=== PATIENT | male | born 1945 | race Caucasian/White ===

== ENCOUNTER 2017-08-18 18:24 | Inpatient (IN) | payer MEDICARE ==
[2017-08-18 18:44] LABS: #Lymphocytes 1.1 thou/uL (1.20-3.40); #Monocytes 0.7 thou/uL (0.11-0.59); #Neutrophils 11.7 thou/uL (1.40-6.50); %Basophils 0.3 % (0.0-1.0); %Eosinophils 0.2 % (0.0-10.0); %Lymphocytes 8.1 % (21.0-51.0); %Monocytes 5.3 % (0.0-10.0); %Neutrophils 86.1 % (42.0-75.0); Hemoglobin 15.2 g/dL (14.0-18.0); Mean Corpuscular HGB CONC 32.6 g/dL (32.0-36.0); Mean Corpuscular Hemoglobin 31.8 pg (27.0-31.0); Mean Corpuscular Volume 97.5 fl (80.0-94.0); Mean Platelet Volume 8.4 fL (7.4-10.4); Platelet Count 194 thou/uL (130-400); Red Blood Cell (RBC) Count 4.79 mill/uL (4.70-6.10); White Blood Cell (WBC) Count 13.6 thou/uL (4.8-10.8)
[2017-08-18 19:09] LABS: ALT (SGPT) 168 U/L (8-55); AST (SGOT) 210 U/L (5-34); Albumin 4.8 g/dL (3.4-4.8); Alcohol 91 mg/dL (Less than 10); Alkaline Phosphatase 83 U/L (40-150); Anion Gap 30 mmol/L (10-20); BUN (Urea Nitrogen) 26 mg/dL (8.4-25.7); Bilirubin, Total 0.9 mg/dL (0.2-1.2); Calc. Creatinine Clearance 0 mL/min (70-130); Calcium 9.9 mg/dL (7.8-10.44); Carbon Dioxide 18 mmol/L (23-31); Chloride 98 mmol/L (98-107); Estimated GFR-MDRD 48; Glucose 145 mg/dL (83-110); Potassium 3.3 mmol/L (3.5-5.1); Protein, Total 8.8 g/dL (5.8-8.1); Sodium 143 mmol/L (136-145)
[2017-08-18 19:17] LABS: CKMB 80.7 ng/mL (0-6.6)
[2017-08-18] MEDS ORDERED: Lorazepam 2 MG/ML VIAL ONE ×3 (19:23→21:06)
[2017-08-18] MEDS ORDERED: Multivitamins, Adult 10 ML, Thiamine HCl 100 MG, Folic Acid 1 MG in Dextrose 5 %-0.45 %... IV SCH (19:30)
[2017-08-18 19:38] LABS: CK (CPK) 10045 U/L (30-200)
--- NOTE | 2017-08-18 19:40 | RAD ---
PORTABLE AP CHEST X-RAY 08/18/17 HISTORY: Dyspnea. COMPARISON: None available. FINDINGS: The cardiac silhouette is magnified by projection and patient rotation but does appear mildly enlarge d. The pulmonary vasculature is within normal limits. Thoracic aorta is ectatic. Lungs are clear. Deg enerative changes are seen in the spine. IMPRESSION: 1. No acute cardiopulmonary process. 2. Suggestion of mild cardiomegaly. POS: [facility]
[2017-08-18] MEDS ORDERED: Diazepam 10 MG/2 ML SYRINGE IVP SCH (20:00)
[2017-08-18] MEDS ORDERED: Sodium Bicarbonate 150 MEQ in Sodium Chloride 0.9% 1,000 ML IV SCH (21:30)
[2017-08-18] MEDS ORDERED: Metoprolol Tartrate 5 MG/5 ML VIAL ONE (22:27)
--- NOTE | 2017-08-18 22:34 | CT ---
NONCONTRAST CT HEAD 08/18/17 HISTORY: Patient constantly shaking. Injury after a fall. COMPARISON: None available. FINDINGS: There is decreased attenuation of the periventricular white matter which is nonspecific but likely re flective of chronic small vessel ischemic changes. There is no evidence of an acute cortical infarcti on, hemorrhage, mass effect, or midline shift. Diffuse cerebral volume loss is present. The ventricul ar system is normal in size, shape, and position for the degree of sulcal atrophy. There is prominenc e of the bifrontal anterior subdural spaces which is most likely attributable to volume loss. The visualized paranasal sinuses and mastoid air cells are clear. Calvarial structures are intact wit hout evidence of a calvarial fracture. There is subcutaneous emphysema anterior to each maxilla, but the gas densities appear to overlie tubular structures. This may represent gas within vascular struct ures as opposed to subcutaneous gas secondary to laceration. There is mild subcutaneous soft tissue s welling seen just anterior and lateral to the right zygomatic arch. IMPRESSION: 1. No acute intracranial abnormalities demonstrated. 2. Chronic small vessel ischemic change and cerebral volume loss. 3. Gas densities anterior to each maxillary antrum which have a tubular configuration and may r epresent gas within venous structures secondary to placement of peripheral intravenous catheter. 4. Mild subcutaneous soft tissue swelling anterolateral to the right zygomatic arch. POS: [facility]
--- NOTE | 2017-08-18 22:48 | CT ---
NONCONTRAST CT CERVICAL SPINE: 08/18/17 HISTORY: Constant shaking. Injury after fall. TECHNIQUE: Contiguous axial CT images are obtained through the cervical spine from the skull base to the T1-2 le tereso. Sagittal and coronal reformat images are provided. FINDINGS: There is exaggerated kyphosis of the cervical spine which may be related to positioning. Multilevel degenerative changes are seen in the cervical spine with narrowing of the intervertebral d isc spaces at all levels with osteophyte formation and facet degenerative changes seen at multiple le vels. There is fusion of the C6 and C7 vertebral bodies. There is also uncinate process hypertrophy at multiple levels. There are varying degrees of moderate and severe neural foraminal narrowing at multiple levels due to bony encroachment on the neural juan alberto nawaf. No fracture or subluxation is seen involving the cervical spine. The prevertebral soft tissues are wi thin normal limits. Vascular calcifications seen in the carotid arteries. IMPRESSION: Multilevel degenerative changes without evidence of an acute fracture or subluxation involving the ce rvical spine. POS: [facility]
[2017-08-18] MEDS ORDERED: Enoxaparin Sodium 30 MG/0.3 ML SYRINGE SC SCH (23:30)
[2017-08-18 23:41] LABS: Magnesium 1.9 mg/dL (1.6-2.6); Phosphorus 6.4 mg/dL (2.3-4.7)
[2017-08-19 00:08] LABS: Troponin I 0.071 ng/mL (< 0.028)
[2017-08-19] MEDS ORDERED: Diazepam 5 MG TAB PO PRN (00:23)
[2017-08-19 00:28] LABS: CKMB 293.9 ng/mL (0-6.6)
[2017-08-19 01:37] LABS: Amphetamine Not Detected (NotDetected); Barbiturates Screen Not Detected (NotDetected); Benzodiazepine Screen Detected (NotDetected); Cocaine Metabolite Screen Not Detected (NotDetected); Medtox Control Line Valid? VALID (VALID); Medtox Reader # READER 4; Methadone Not Detected (NotDetected); Methamphetamine Not Detected (NotDetected); Opiate Screen Not Detected (NotDetected); Oxycodone Screen Not Detected (NotDetected); Phencyclidine (PCP) Not Detected (NotDetected); THC/Cannabinoid Screen Not Detected (NotDetected); Tricyclic Screen Not Detected (NotDetected)
[2017-08-19 02:45] LABS: Lactic Acid 12.7 mmol/L (0.5-2.2)
[2017-08-19] MEDS: Sodium Chloride 0.9% 1,000 ML IV SCH ×7 (02:45→22:10)
[2017-08-19 02:55] LABS: #Lymphocytes 0.6 thou/uL (1.20-3.40); #Monocytes 0.8 thou/uL (0.11-0.59); #Neutrophils 7.9 thou/uL (1.40-6.50); %Eosinophils 0.2 % (0.0-10.0); %Lymphocytes 6.2 % (21.0-51.0); %Monocytes 8.3 % (0.0-10.0); %Neutrophils 85.3 % (42.0-75.0); Hemoglobin 15.5 g/dL (14.0-18.0); Mean Corpuscular HGB CONC 34.1 g/dL (32.0-36.0); Mean Corpuscular Hemoglobin 32.7 pg (27.0-31.0); Mean Corpuscular Volume 96.1 fl (80.0-94.0); Mean Platelet Volume 8.7 fL (7.4-10.4); Platelet Count 158 thou/uL (130-400); RBC Distribution Width 14.2 % (11.5-14.5); Red Blood Cell (RBC) Count 4.74 mill/uL (4.70-6.10); White Blood Cell (WBC) Count 9.3 thou/uL (4.8-10.8)
[2017-08-19 03:01] LABS: PTT 27.8 SEC (22.9-36.1); Prothrombin Time 12.8 SEC (12.0-14.7)
[2017-08-19 03:16] LABS: Troponin I 0.098 ng/mL (< 0.028)
[2017-08-19 03:18] LABS: ALT (SGPT) 279 U/L (8-55); AST (SGOT) 732 U/L (5-34); Albumin 3.5 g/dL (3.4-4.8); Alkaline Phosphatase 66 U/L (40-150); Anion Gap 15 mmol/L (10-20); BUN (Urea Nitrogen) 25 mg/dL (8.4-25.7); Bilirubin, Total 1.4 mg/dL (0.2-1.2); Calc. Creatinine Clearance 69 mL/min (70-130); Calcium 7.6 mg/dL (7.8-10.44); Carbon Dioxide 27 mmol/L (23-31); Chloride 104 mmol/L (98-107); Estimated GFR-MDRD 65; Glucose 202 mg/dL (83-110); Magnesium 1.9 mg/dL (1.6-2.6); Phosphorus 4.5 mg/dL (2.3-4.7); Potassium 3.6 mmol/L (3.5-5.1); Protein, Total 6.5 g/dL (5.8-8.1); Sodium 142 mmol/L (136-145)
[2017-08-19 03:55] LABS: HBCM Index 0.07 S/CO (0-0.79); HBSAg Index 0.15 S/CO (0-0.99); Hep B Surf Ag Non-Reactive S/CO (NonReactive); Hep C IgG Ab Non-Reactive (NonReactive); Hep C Index 0.14 S/CO (0-0.79); Hepatitis B Core IGM Abs Non-Reactive (NonReactive)
[2017-08-19 04:20] LABS: CKMB 598.5 ng/mL (0-6.6)
[2017-08-19 05:00] LABS: Clarity CLOUDY (Clear); Protein, Urine (Dipstick) 300 mg/dL (Neg-Trace); Specific Gravity, Urine 1.021 (1.002-1.036)
[2017-08-19 05:04] LABS: Bacteria/HPF None Seen HPF (None Seen); Hyaline Casts/LPF 0-3 HYALINE CAST LPF (0-3 Hyaline); Squamous Epithelial None Seen HPF (0-3); WBC/HPF None Seen HPF (0-3)
[2017-08-19 05:16] LABS: Bilirubin Unable to Interpret (Negative); Blood, Urine Unable to Interpret (Negative); Glucose, Urine (Dipstick) Unable to Interpret mg/dL (Negative); Leukocyte Unable to Interpret (Negative); Nitrite Unable to Interpret (Negative); Urobilinogen UNABLE TO INTERPRET mg/dL (0.2-1.0)
[2017-08-19 05:37] LABS: Syphilis Antibody Nonreactive (Nonreactive); Syphilis Antibody Index 0.03 S/CO (<1.00 Non-Reactive)
[2017-08-19 05:57] LABS: Lactic Acid 2.7 mmol/L (0.5-2.2)
--- NOTE | 2017-08-19 06:49 | PDOC.EVN ---
Event Note - Event Note Event Note: Attending H&P. Late entry. I personally evaluated the patient and discussed the management with Dr. Dominguez in the ER at time of admission on 08/18. I have reviewed the written H&P and it is repeated by me. I agree with the History, Examination, Assessment and Plan documented above with any addition or exceptions noted below. We will admit for treatment of DT with Ativan. He was appropriately sedated at time of admission. He has rhabdomyolysis and will recieve IV fluid resuscitation. We have concern for right calf compartment syndrome, but distal pulses are intact. Will have Ortho consult today. He is being evaluated for A flutter as well. Electrolyte replacement as needed.
--- NOTE | 2017-08-19 08:49 | ULT ---
ULTRASOUND ABDOMEN: Date: 08/19/17 HISTORY: Concern for liver cirrhosis and ascites. FINDINGS: The liver demonstrates increased echogenicity with concern for fatty infiltration without focal mass or intrahepatic ductal dilatation. The liver is enlarged measuring 21.1 cm. The spleen measures 7.8 c m in length and is unremarkable. No gallstones, gallbladder wall thickening, or pericholecystic fluid is seen. The common duct measures 5.0 mm in diameter. There is a 1.9 cm cyst in the inferior pole of the right kidney and a 1.1 cm cyst in the left mid kidney. No hydronephrosis is seen. The visualized portions of the pancreas, aorta, and IVC are unremarkable. No free fluid is seen. The pancreatic lyle t measures about 2.0 mm in diameter. IMPRESSION: 1. Fatty infiltration of the liver with hepatomegaly. 2. No evidence of cholelithiasis. 3. Bilateral renal cysts. POS: [facility]
[2017-08-19] MEDS ORDERED: Prevnar 13-Val Conj/PF 0.5 ML SYRINGE IM ONE (09:00)
[2017-08-19] MEDS ORDERED: Enoxaparin Sodium 30 MG/0.3 ML SYRINGE SC SCH (09:00)
[2017-08-19] MEDS ORDERED: FLU VACC TS2017-18 (>65YR) 0.5 ML SYRINGE IM ONE (09:00)
[2017-08-19] MEDS: Multivitamin W/ Minerals 1 TAB PO SCH (09:14)
[2017-08-19] MEDS: Lorazepam 2 MG/ML VIAL SLOW IVP PRN ×3 (09:14→23:45)
[2017-08-19] MEDS: Magnesium Oxide 400 MG TAB PO SCH (09:15)
[2017-08-19] MEDS: Enoxaparin Sodium 30 MG/0.3 ML SYRINGE SC SCH (09:15)
[2017-08-19] MEDS: Folic Acid 1 MG TAB PO SCH (09:15)
--- NOTE | 2017-08-19 09:41 | PDOC.FM ---
- Subjective Subjective: Patient seems to be improved compared to report from initial admission. Still poor historian. Oriented to location, but not time, situation, or president ( Chandra). Denies any CP, SOB, N/V. - Objective MAR Reviewed: Yes Vital Signs & Weight: Vital Signs (12 hours) Temp Pulse Resp Pulse Ox 08/19/17 08:00 98.9 F 121 H 23 H 08/19/17 06:00 98.4 F 08/19/17 04:00 100 08/19/17 03:38 100 08/19/17 03:00 99 F 08/19/17 00:30 97.9 F 114 H 20 98 08/19/17 00:00 97.9 F Most Recent Monitor Data Heart Rate from ECG 108 NIBP 154/107 NIBP BP-Mean 117 Respiration from ECG 22 SpO2 97 I&O: 08/18/17 08/19/17 08/20/17 06:59 06:59 06:59 Intake Total 2850 500 Output Total 895 105 Balance 1954 395 Result Diagrams: 08/19/17 02:43 08/19/17 02:43 <Harrison Hawkins - Last Filed: 08/19/17 09:38> - Objective Vital Signs & Weight: Vital Signs (12 hours) Temp Pulse Resp 08/19/17 15:00 98.4 F 08/19/17 11:00 98.9 F 08/19/17 10:38 121 H 08/19/17 08:00 98.9 F 121 H 23 H Weight Admit Weight 83.007 kg Weight 83.007 kg Most Recent Monitor Data Heart Rate from ECG 100 NIBP 156/100 NIBP BP-Mean 108 Respiration from ECG 28 SpO2 95 I&O: 08/18/17 08/19/17 08/20/17 06:59 06:59 06:59 Intake Total 2850 3757 Output Total 895 600 Balance 1954 3157 Result Diagrams: 08/19/17 02:43 08/19/17 02:43 <Laura Yoo - Last Filed: 08/19/17 18:30> Phys Exam - Physical Examination Constitutional: NAD diffuse tremors HEENT: PERRLA, moist MMs Neck: full ROM Respiratory: no wheezing, clear to auscultation bilateral Cardiovascular: RRR, no significant murmur full, tight abd; no pain on palpation of RUQ Musculoskeletal: pulses present Neurological: normal sensation, moves all 4 limbs Deviation from normal: oriented x2 <Harrison Hawkins M - Last Filed: 08/19/17 09:38> Dx/Plan (1) Alcohol withdrawal Code(s): F10.239 - ALCOHOL DEPENDENCE WITH WITHDRAWAL, UNSPECIFIED Status: Acute Plan: ASE protocol librium and ativan(prn) continue to monitor (2) Rhabdomyolysis Code(s): M62.82 - RHABDOMYOLYSIS Status: Acute Plan: IVF @ 225, continue to monitor CK likely cause of THOR (3) Atrial fibrillation with RVR Code(s): I48.91 - UNSPECIFIED ATRIAL FIBRILLATION Status: Acute Plan: suspected, though repeat EKG was less convincing CKMB critically elevated, continue to monitor trop also indet, continue to trend ECHO consider Cards rec (4) Hypokalemia Code(s): E87.6 - HYPOKALEMIA Status: Acute Plan: improved this AM watch closely, likely recheck this afternoon (5) THOR (acute kidney injury) Code(s): N17.9 - ACUTE KIDNEY FAILURE, UNSPECIFIED Status: Acute Plan: fluids likely 2/2 to rhabdo continue to monitor (6) Elevated LFTs Code(s): R79.89 - OTHER SPECIFIED ABNORMAL FINDINGS OF BLOOD CHEMISTRY Status : Acute Plan: RUQ US unremarkable likely 2/2 to EtOH abuse as the pattern is consistent with labs hepatitis panel negative <Harrison Hawkins M - Last Filed: 08/19/17 09:38> Attending Addendum - Attending Addendum I personally evaluated the patient and discussed the management with Dr. Hawkins I agree with the History, Examination, Assessment and Plan documented above with any addition or exceptions noted below. 72 yo male with hx of alcohol abuse admitted for alcohol withdrawal with DTs. HD#1 VS reviewed. Exam unchanged. Still not oriented x3. Labs reviewed. DT/EtOH withdrawal: ASE. Benzo scheduled and prn. EtOH 91. Counseling. Treat co- morbid conditions as needed -- MDD, WILL, etc. Rhabdo: Bolus IVFs as needed. Otherwise continue rate 2x to 3x maintenance. Monitor renal function closely. Trend CK. LTFs and CKMB likely elevated due to same. Continue to trend. Transamnititis: Trend. Hep panel negative. Fatty liver dz on sono with hepatomegaly. Possibly worsened due to EtOH and rhabdo. Tachycardia: Continue cardiac monitoring. Trop indeterminate. No other EKG changes. pEFHF: Elevated BNP with diastolic dysfunction on ECHO. Possible new dx. Will discuss with cards while inpatient. Continue current care. Camryn <Laura Yoo - Last Filed: 08/19/17 18:30>
[2017-08-19 10:11] LABS: Troponin I 0.093 ng/mL (< 0.028)
[2017-08-19] MEDS ORDERED: Labetalol HCl 100 MG/20 ML VIAL SLOW IVP PRN ×2 (10:18→12:01)
--- NOTE | 2017-08-19 10:23 | HP-2 ---
CODE STATUS: FULL. PRIMARY CARE PHYSICIAN: [facility]. ATTENDING DOCTOR: Eric Simpson M.D. RESIDENT DOCTOR: Clarissa Dominguez D.O. CHIEF COMPLAINT: Found down. HISTORY OF PRESENT ILLNESS: This is a 72-year-old male with a known alcohol abuse history, found down by neighbors this afternoon. EMS was called. The patient was noted to be altered and with bruises on the right side of his face. The patient was down for an unknown period of time and his last drink was reportedly 1-2 days ago. The patient was given Lopressor 5 mg IVP in the emergency department for atrial fibrillation/atrial flutter with rapid ventricular rate. He was additionally given sodium bicarbonate 250 mL per hour as well as Ativan 2 mg x3 and Valium 5 mg. He was fluid resuscitated with 3 liters of normal saline and started on a banana bag. PAST MEDICAL HISTORY: Alcohol abuse. No other history was able to be obtained at this time and there are no past records to help elicit a more thorough history. PAST SURGICAL HISTORY: Unknown. ALLERGIES: Unable to confirm. MEDICATIONS: Unknown. FAMILY HISTORY: Noncontributory. SOCIAL HISTORY: The patient is a known alcoholic per neighbors. He drinks about 1 drink per day. Tobacco and drug use, unknown at this time. REVIEW OF SYSTEMS: Unable to obtain due to patient's mental status. PHYSICAL EXAMINATION: VITAL SIGNS: Blood pressure 165/132, pulse 111, respiratory rate 28, T-max 98, pulse ox 96% on room air, current weight 83 kilograms. GENERAL: The patient was alert and only oriented to person. He appeared to be well-developed and well-nourished. He was tremulous on exam. He was able to follow some commands, but could not answer questions appropriately. EYES: Sluggish and pinpoint. Conjunctivae within normal limits. ENT: Nasal mucosa and oropharynx within normal limits. NECK: Supple. No lymphadenopathy. CARDIOVASCULAR: The patient was tachycardic and no murmurs. Radial and pedal pulses are 2+. RESPIRATORY: Normal effort, no retractions. LUNGS: Clear to auscultation bilaterally. SKIN: Warm and dry. There is no cyanosis, but there is ecchymosis to the right side of the face. ABDOMEN: Soft but protuberant, not appear to be any tenderness to palpation. Bowel sounds are positive in all 4 quadrants. There are no masses or distention. EXTREMITIES: No clubbing or cyanosis. There was pitting edema to the bilateral lower extremities, both of which did feel very taut and constricted. MUSCULOSKELETAL: Structure within normal limits. NEUROLOGIC: No focal deficits evident, his GCS was 14. It was difficult to assess neurological status secondary to mental state. LABORATORY DATA: 1. CBC reveals white blood cell count 13.6, hemoglobin 13.2, hematocrit 46.6, platelets 194. 2. CMP reveals sodium 143, potassium 3.3, chloride 98, bicarbonate 18, BUN 26, creatinine 1.43, glucose 145, calcium 9.9, total protein 8.8, albumin 4.0, AST 210, ALT 168, alkaline phosphatase 83, total bilirubin 0.9. 3. CK 10,045. 4. CK-MB 80.7 up to 293.9, troponin 0.07-0.071. 5. Phosphorus 6.4. 6. Magnesium 1.9. 7. Alcohol level 91. 8. UDS negative except for benzodiazepines, which were given in the ED. 9. EKG showed atrial fibrillation versus atrial flutter with rapid ventricular rate. 10. Chest x-ray mild cardiomegaly. Imaging, brain CT, no acute intracranial abnormalities. 11. Cervical spine CT: No acute findings. ASSESSMENT AND PLAN: This 72-year-old male with past medical history of alcohol abuse that presented after being found down by his neighbors. 1. Delirium tremens, alcohol withdrawal. The patient was admitted to CCU. He was given 6 mg of Ativan and 5 mg of Valium in the emergency department and appears to be lightly sedated at this time. GCS of 14. No agitation on exam, patient is alert and oriented to person and following some commands. Last drink was presumably 1-2 days ago. ASE protocol was initiated using Ativan 2 mg q.4 h. p.r.n. for ASE score greater than 10 on day 1 and Ativan 1 mg q.4 h. p.r.n. for ASE greater than 10 on day 2. Ativan was opted for due to suspicion for liver disease. Ammonia level was within normal limits. Cardiac enzymes were elevated; however, it is expected that cardiac indices would be elevated with delirium tremens. Magnesium was within normal limits and phosphorus was elevated at 6.5, likely secondary to rhabdomyolysis. Potassium was 3.3. We will continue to monitor and replace as necessary. CT brain was negative. Flores is in place. 2. Possible atrial fibrillation/flutter with rapid ventricular response on EKG. The patient is tachycardic, likely secondary to delirium tremens. Cardiac enzymes elevated, but consistent with delirium tremens. We will continue to trend cardiac enzymes and repeat EKG. Repeat EKG showed sinus tachycardia. 4. Rhabdomyolysis. CK was found to be 10,000. The patient was found down for unknown amount of time. We will do aggressive fluid hydration and put patient on normal saline at 225 mL per hour. We will continue to trend CK until there is an obvious downtrend. 5. Acute kidney injury from dehydration. Patient was fluid resuscitated. We will continue to monitor with BMPs. 6. Elevated liver enzymes. There is concern for hepatic disease. This patient is a chronic alcoholic. There is also concern for ascites. Hepatitis panels are pending at this time and the abdominal ultrasound is pending. 7. Hypokalemia. We will consider replenishing potassium, but will monitor accordingly for elevation in potassium level secondary to rhabdomyolysis. 8. High risk behavior, RPR and HIV were obtained. 9. Anion gap metabolic acidosis. This is likely secondary to alcohol intoxication versus dehydration. The patient is being adequately fluid resuscitated and we will continue to monitor for closure of gap and rise in bicarbonate. DISPOSITION AND LENGTH OF HOSPITAL STAY: 3 days. Symptomatic medication will be provided. History of physical exam as well as management discussed with Dr. Eric Simpson. [facility]
--- NOTE | 2017-08-19 11:08 | CON ---
DATE OF CONSULTATION: 08/19/2017 He is from the [facility]. He comes to the hospital for alcohol withdrawal. He said he is trying to cut back on drinking. He is fairly tremulous, shaking. He has had multiple falls, in fact, he h as got a big bruise on his right orbital area. He has got a daughter apparently living close by. He has one daughter in [place] whom I spoke to personally, unable to give any additional information at this time except he has had some chronic iss ues to speak of. He is drinking whiskey, several at a time. He was transferred to the ICU for withdrawal, confusion, tremors. At this stage we are unable to get additional information. He has been placed on a banana bag. He got the flu shot. He is on Lovenox, Ativan p.r.n., thiamine, IV fluids. His daughter from [place] tells me that somewhere down the line he has had a history of some cardiac issues, possibl y seen a travel physical therapist, though we do not have any records at this stage here. It is unclear what medicine he is taking, but it appears to be atorvastatin. Obviously will get more history when the patient is more appropriate. He is clearly . PAST SURGICAL HISTORY: At this stage unobtainable. SOCIAL HISTORY: As noted, alcohol abuse. Unclear about his smoking history, but he denies any. FAMILY HISTORY: Otherwise unremarkable. 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 REVIEW OF SYSTEMS: Negative. PHYSICAL EXAMINATION: GENERAL: He is tremulous. VITAL SIGNS: Pulse 112, respiratory rate 26, O2 sat 100%, temperature 98, blood pressure 120/80. NEURO: Awake, responsive. CHEST: Chest revealed decreased breath sounds, no wheezing. CARDIAC: Sinus tach. ABDOMEN: Soft, no masses. LABORATORY: His electrolytes are normal. Lactic acid was 12, now it is 2.7. AST is 732, ALT is 279 . CK was elevated at 598. Urine is unremarkable. He had benzos in his urine. Ultrasound of the abdomen was ordered. Renal function normal. Chest x-ray on admission was unremarkable. May be some bibasilar atelectatic changes. He had a CT b rain that was unremarkable. No bleed was seen. Cervical spine CT was done which showed degenerative changes without any acute fracture seen. IMPRESSION: 1. Alcoholic withdrawal, delirium. 2. Abnormal liver function tests. 3. Alcoholic hepatitis. 4. Sinus tach. 5. History by daughter that he had some cardiac issues in the past, but it is unclear who he has see n. There are no records from this hospitalization. PLAN: I agree with present treatment, banana bag, IV fluids, supportive care. Ativan as needed. I will follow while in the ICU. He obviously needs senior care counseling. I reviewed all x-rays and x-ray reports. Forty-five minute critical care time.
[2017-08-19 11:22] LABS: CKMB Greater than 300.0 ng/mL (0-6.6)
[2017-08-19] MEDS ORDERED: Sodium Chloride 0.9% 1,000 ML IV SCH (18:30)
[2017-08-20] MEDS ORDERED: Lorazepam 2 MG/ML VIAL SLOW IVP PRN (00:01)
[2017-08-20] MEDS: Sodium Chloride 0.9% 1,000 ML IV SCH ×5 (02:05→14:43)
[2017-08-20] MEDS ORDERED: Diazepam 5 MG TAB PO PRN (04:00)
[2017-08-20 06:23] LABS: Lactic Acid 2.6 mmol/L (0.5-2.2)
[2017-08-20 06:45] LABS: Anion Gap 16 mmol/L (10-20); BUN (Urea Nitrogen) 18 mg/dL (8.4-25.7); Calc. Creatinine Clearance 95 mL/min (70-130); Calcium 6.7 mg/dL (7.8-10.44); Carbon Dioxide 20 mmol/L (23-31); Chloride 108 mmol/L (98-107); Estimated GFR-MDRD Greater than 90; Glucose 94 mg/dL (83-110); Potassium 4.2 mmol/L (3.5-5.1); Sodium 140 mmol/L (136-145)
[2017-08-20 06:51] LABS: HIV (1/2) Antibody/Antigen Non-Reactive (NonReactive); HIV 1/2 INDEX 0.23 S/CO (<1.00)
[2017-08-20 07:26] LABS: CK (CPK) Greater than 40000 U/L (30-200)
--- NOTE | 2017-08-20 08:20 | PRG ---
DATE OF SERVICE: 08/20/2017 This morning he is awake, alert, responsive, still tremulous. PHYSICAL EXAMINATION: VITAL SIGNS: Blood pressure 150/91, pulse 119, respirations 18. I's and O's are 860 in, 1730 out. He denies any pain. CK is 40,000. Electrolytes are normal. CHEST: Chest revealed decreased breath sounds, no wheezing. CARDIAC: Normal S1-S2. No gallops. ABDOMEN: Soft. No masses. IMPRESSION: 1. Alcohol withdrawal. 2. Elevated CK probably element of the rhabdo, though there is not much blood in his urine. PLAN: Continue hydration. I will try and decrease IV to no more than an 100 an hour. Continue observation in the ICU. Nutrition and PT. I will follow.
--- NOTE | 2017-08-20 08:30 | PDOC.FM ---
- Subjective Subjective: Patient reports he mostly did well overnight, did not sleep as well as usual. Still shaking, though improved compared to yesterday. Denies CP, SOB, N/V. Had large BM this morning per nursing staff. - Objective MAR Reviewed: Yes Vital Signs & Weight: Vital Signs (12 hours) Temp Pulse Ox 08/20/17 04:42 98 08/20/17 04:00 97.9 F 08/20/17 00:00 98 F Weight Admit Weight 83.007 kg Weight 83.007 kg Most Recent Monitor Data Heart Rate from ECG 105 NIBP 153/91 NIBP BP-Mean 117 Respiration from ECG 29 SpO2 98 I&O: 08/19/17 08/20/17 08/21/17 06:59 06:59 06:59 Intake Total 2850 8608 Output Total 895 1730 Balance 1955 3937 Result Diagrams: 08/19/17 02:43 08/20/17 04:26 <Harrison Hawkins - Last Filed: 08/20/17 08:29> - Objective Vital Signs & Weight: Vital Signs (12 hours) Temp Pulse Resp Pulse Ox 08/22/17 08:00 99.0 F 100 28 H 93 L 08/22/17 04:00 98.1 F 08/22/17 00:00 98.8 F Weight Admit Weight 83.007 kg Weight 83.007 kg Most Recent Monitor Data Heart Rate from ECG 99 NIBP 143/83 NIBP BP-Mean 113 Respiration from ECG 38 SpO2 92 I&O: 08/21/17 08/22/17 08/23/17 06:59 06:59 06:59 Intake Total 6427 6103 500 Output Total 5031 4030 250 Balance 1396 2073 250 Result Diagrams: 08/19/17 02:43 08/22/17 03:35 <Laura Yoo - Last Filed: 08/22/17 09:38> Phys Exam - Physical Examination Constitutional: NAD HEENT: moist MMs Neck: supple, full ROM Respiratory: no wheezing, clear to auscultation bilateral Cardiovascular: RRR, no significant murmur mildly taut, distended; no guarding Musculoskeletal: pulses present, edema present 1+ pitting edema b/l to knees Neurological: normal sensation, moves all 4 limbs Deviation from normal: oriented to person and place <Rister,Harrison M - Last Filed: 08/20/17 08:29> Dx/Plan (1) Alcohol withdrawal Code(s): F10.239 - ALCOHOL DEPENDENCE WITH WITHDRAWAL, UNSPECIFIED Status: Acute Plan: ASE protocol librium scheduled and ativan(prn) received ativan around midnight for ASE >10 some ASE scores have been as low as 4, will continue to monitor and wean down on dose as needed (2) Rhabdomyolysis Code(s): M62.82 - RHABDOMYOLYSIS Status: Acute Plan: recheck yesterday of CK was >40,000. Bolus given and IVF increased to 250ml/hr. This morning it was again >40,000. THOR has resolved (3) Atrial fibrillation with RVR Code(s): I48.91 - UNSPECIFIED ATRIAL FIBRILLATION Status: Acute Plan: suspected, though repeat EKG showed normal sinus CKMB critically elevated, continue to monitor trop also indet, continue to trend ECHO 55% EF, findings suggestive of diastolic but limited exam due to patient intolerance (4) Hypokalemia Code(s): E87.6 - HYPOKALEMIA Status: Acute Plan: stable today (5) THOR (acute kidney injury) Code(s): N17.9 - ACUTE KIDNEY FAILURE, UNSPECIFIED Status: Acute Plan: resolved (6) Elevated LFTs Code(s): R79.89 - OTHER SPECIFIED ABNORMAL FINDINGS OF BLOOD CHEMISTRY Status : Acute Plan: RUQ US unremarkable likely 2/2 to EtOH abuse as the pattern is consistent with labs hepatitis panel negative <Harrison Hawkins M - Last Filed: 08/20/17 08:29> Attending Addendum - Attending Addendum I personally evaluated the patient and discussed the management with Dr. Hawkins I agree with the History, Examination, Assessment and Plan documented above with any addition or exceptions noted below. 72 yo male with hx of alcohol abuse admitted for alcohol withdrawal with DTs. HD#2 VS reviewed. Exam unchanged. Still not oriented x3. Upon awakening on exam uncontrolled tremors. Will hold on Ativan prince today. Labs reviewed. DT/EtOH withdrawal: ASE. Benzo scheduled and prn. EtOH 91. Counseling. Treat co- morbid conditions as needed -- MDD, WILL, etc. Rhabdo: Bolus IVFs as needed. Otherwise continue rate 1x maintenance. Monitor renal function closely. Trend CK daily until downtrending. LTFs and CKMB likely elevated due to same. Continue to trend. Transamnititis: Trend. Hep panel negative. Fatty liver dz on sono with hepatomegaly. Possibly worsened due to EtOH and rhabdo. Tachycardia: Continue cardiac monitoring. Trop indeterminate. No other EKG changes. Restart beta rupal HTN: Restart beta rupal pEFHF: Elevated BNP with diastolic dysfunction on ECHO. Possible new dx. Will discuss with cards while inpatient. Continue current care. Camryn <Laura Yoo - Last Filed: 08/22/17 09:38>
[2017-08-20] MEDS: Multivitamin W/ Minerals 1 TAB PO SCH (09:30)
[2017-08-20] MEDS: Folic Acid 1 MG TAB PO SCH (09:30)
[2017-08-20] MEDS: Enoxaparin Sodium 30 MG/0.3 ML SYRINGE SC SCH (09:30)
[2017-08-20] MEDS: Magnesium Oxide 400 MG TAB PO SCH (09:30)
[2017-08-20] MEDS: Calcium Carbonate 500 MG ChewTAB PO SCH (11:49)
[2017-08-20] MEDS: Lorazepam 2 MG/ML VIAL SLOW IVP PRN (21:34)
[2017-08-21] MEDS: Sodium Chloride 0.9% 1,000 ML IV SCH ×5 (00:20→23:11)
[2017-08-21] MEDS: Lorazepam 2 MG/ML VIAL SLOW IVP PRN ×3 (01:42→22:01)
--- NOTE | 2017-08-21 07:06 | PDOC.FM ---
Addendum entered and electronically signed by Juana Valdez DO 07:09: Assessment/Plan: 1) Delerium Trem - ASE last night was 11, 12. Given 2mg Ativan total throughout the night. Librium was started yesterday. On thiamine and folate. Consider transfer to telemetry. 2) Rhabdomyolysis - CK still > 40,000. Continue fluids at 200. Encourage patient to drink PO. 3) Severe Alcohol abuse now with alcohol withdrawl - Counselled on cessation. 4) S/p fall - Head CT was negative. Likely 2/2 alcohol. No focal neurological deficits. 5) Elevated CK-MB 2/2 Rhabdomyolysis. Continue Fluids. 6) Sinus Tachycardia 2/2 #1. LVEF 60-65%. Original Note: - Subjective Subjective: Pt just waking up this morning. He doesn't really remember exactly what happened and why he is here. He was asking for alcoholic beverages throughout the entire night to the nurse. + BM. I/O: about 4L out in 24hours. Denies any pain or concerns at this time. - Objective MAR Reviewed: Yes Vital Signs & Weight: Vital Signs (12 hours) Temp Pulse Resp Pulse Ox 08/21/17 04:00 97.9 F 08/21/17 00:00 98.5 F 08/20/17 20:00 98.7 F 103 H 20 95 08/20/17 19:38 99 Weight Admit Weight 83.007 kg Weight 83.007 kg Most Recent Monitor Data Heart Rate from ECG 103 NIBP 160/90 NIBP BP-Mean 129 Respiration from ECG 19 SpO2 97 I&O: 08/20/17 08/21/17 08/22/17 06:59 06:59 06:59 Intake Total 8608 6427 Output Total 5296 5031 Balance 6878 1396 Result Diagrams: 08/19/17 02:43 08/20/17 04:26 <Juana Valdez - Last Filed: 08/21/17 07:04> - Objective Vital Signs & Weight: Vital Signs (12 hours) Temp Pulse Resp Pulse Ox 08/21/17 08:00 99.0 F 110 H 25 H 96 08/21/17 04:00 97.9 F 08/21/17 00:00 98.5 F Weight Admit Weight 183 lb Weight 183 lb Most Recent Monitor Data Heart Rate from ECG 90 NIBP 138/90 NIBP BP-Mean 99 Respiration from ECG 22 SpO2 95 I&O: 08/20/17 08/21/17 08/22/17 06:59 06:59 06:59 Intake Total 8608 6427 220 Output Total 1730 5031 990 Balance 6878 1396 -770 Result Diagrams: 08/19/17 02:43 08/21/17 07:02 <Duane Beckford - Last Filed: 08/21/17 10:51> Phys Exam - Physical Examination Constitutional: NAD R bruise maxillary. Neck: no nodes, no JVD Respiratory: no wheezing, no rales, no rhonchi, clear to auscultation bilateral Cardiovascular: no significant murmur Regular Tachycardic. Gastrointestinal: soft, non-tender, no distention Musculoskeletal: pulses present (+2) +2pitting edema LE bilaterally Neurological: moves all 4 limbs CNII-XII grossly intact. Deviation from normal: Oriented to self. Deviation from normal: + RLE bullae <Juana Valdez - Last Filed: 08/21/17 07:04> Attending Addendum - Attending Addendum I personally evaluated the patient and discussed the management with [ Lance] I agree with the History, Examination, Assessment and Plan documented above. Continue ASE protocol. Will possibly transfer to floor today pending Pulmonology assessment <Duane Beckford - Last Filed: 08/21/17 10:51>
[2017-08-21 07:31] LABS: ALT (SGPT) 255 U/L (8-55); AST (SGOT) 833 U/L (5-34); Albumin 2.5 g/dL (3.4-4.8); Alkaline Phosphatase 64 U/L (40-150); Anion Gap 10 mmol/L (10-20); BUN (Urea Nitrogen) 10 mg/dL (8.4-25.7); Bilirubin, Total 1.1 mg/dL (0.2-1.2); Calc. Creatinine Clearance 115 mL/min (70-130); Calcium 6.8 mg/dL (7.8-10.44); Carbon Dioxide 24 mmol/L (23-31); Chloride 104 mmol/L (98-107); Estimated GFR-MDRD Greater than 90; Globulin 2.4 g/dL (2.4-3.5); Glucose 92 mg/dL (83-110); Magnesium 1.3 mg/dL (1.6-2.6); Protein, Total 4.9 g/dL (5.8-8.1); Sodium 135 mmol/L (136-145)
[2017-08-21 08:20] LABS: CK (CPK) Greater than 40000 U/L (30-200)
[2017-08-21] MEDS: Calcium Carbonate 500 MG ChewTAB PO SCH (08:33)
[2017-08-21] MEDS: Folic Acid 1 MG TAB PO SCH (08:35)
[2017-08-21] MEDS: Magnesium Oxide 400 MG TAB PO SCH (08:35)
[2017-08-21] MEDS: Multivitamin W/ Minerals 1 TAB PO SCH (08:35)
[2017-08-21] MEDS: Enoxaparin Sodium 40 MG/0.4 ML SYRINGE SC SCH (08:38)
[2017-08-21] MEDS ORDERED: Potassium Chloride 20 MEQ TAB PO SCH (11:00)
[2017-08-21] MEDS ORDERED: Furosemide 40 MG/4 ML VIAL SLOW IVP SCH (11:30)
[2017-08-21] MEDS: Famotidine 20 MG TAB PO SCH (21:14)
--- NOTE | 2017-08-21 21:32 | PRG ---
DATE OF SERVICE: 08/21/2017 SUBJECTIVE: Mr. Ramirez continues to be a little confused. OBJECTIVE: VITAL SIGNS: He is afebrile. Oximetry is 93 on room air, blood pressure 155/88, respiratory rates i n the 20s. LUNGS: Clear. HEART: Regular rhythm. ABDOMEN: Soft. EXTREMITIES: Without asymmetry. LABORATORY DATA: White count 9.3, hemoglobin 15.5, platelets 158,000. Sodium 135, potassium 3, chlo ride 104, bicarbonate 24, BUN 10, creatinine 0.66. His multiple lower extremity skin lesions are being addressed by Wound Care. IMPRESSION: Alcohol withdrawal encephalopathy associated with this, protecting his airway and clinic ally stable. Now feel comfortable moving him out of the critical care unit at this point in time. He has fairly impressive rhabdomyolysis with a CPK of greater than 40,000.
[2017-08-22] MEDS: Sodium Chloride 0.9% 1,000 ML IV SCH (04:26)
[2017-08-22 04:27] LABS: Lactic Acid 1.1 mmol/L (0.5-2.2)
[2017-08-22 04:30] LABS: ALT (SGPT) 227 U/L (8-55); AST (SGOT) 715 U/L (5-34); Albumin 2.3 g/dL (3.4-4.8); Alkaline Phosphatase 60 U/L (40-150); Anion Gap 10 mmol/L (10-20); BUN (Urea Nitrogen) 8 mg/dL (8.4-25.7); Bilirubin, Total 0.9 mg/dL (0.2-1.2); Calc. Creatinine Clearance 117 mL/min (70-130); Calcium 7.1 mg/dL (7.8-10.44); Carbon Dioxide 25 mmol/L (23-31); Chloride 104 mmol/L (98-107); Estimated GFR-MDRD Greater than 90; Globulin 2.5 g/dL (2.4-3.5); Glucose 99 mg/dL (83-110); Magnesium 1.3 mg/dL (1.6-2.6); Protein, Total 4.8 g/dL (5.8-8.1); Sodium 136 mmol/L (136-145)
[2017-08-22 04:35] LABS: Potassium 2.9 mmol/L (3.5-5.1)
[2017-08-22] MEDS ORDERED: Potassium Chloride 40 MEQ in Premix Bag 1 BAG IVPB SCH (05:45)
[2017-08-22] MEDS ORDERED: Potassium Chloride 20 MEQ TAB PO SCH ×2 (05:45→18:00)
[2017-08-22] MEDS ORDERED: Sodium Chloride 0.9% 1,000 ML IV SCH ×2 (05:55→09:57)
--- NOTE | 2017-08-22 05:57 | PDOC.FM ---
- Subjective Subjective: Patient improved from last night per nurse. HR did not get above 120, which is much better than night before. Patient has no complaints at this time. Tolerating PO. Still tremulous and intermittent confusion. - Objective MAR Reviewed: Yes Vital Signs & Weight: Vital Signs (12 hours) Temp Pulse Ox 08/22/17 04:00 98.1 F 08/22/17 00:00 98.8 F 08/21/17 20:00 99.3 F 08/21/17 18:43 93 L Weight Admit Weight 83.007 kg Weight 83.007 kg Most Recent Monitor Data Heart Rate from ECG 103 NIBP 149/85 NIBP BP-Mean 96 Respiration from ECG 21 SpO2 94 I&O: 08/20/17 08/21/17 08/22/17 06:59 06:59 06:59 Intake Total 8608 6427 3563 Output Total 1730 5031 3680 Balance 6878 1396 -117 Result Diagrams: 08/19/17 02:43 08/22/17 03:35 <Juana Valdez - Last Filed: 08/22/17 05:56> - Objective Vital Signs & Weight: Vital Signs (12 hours) Temp Pulse Resp Pulse Ox 08/22/17 08:00 99.0 F 100 28 H 93 L 08/22/17 04:00 98.1 F 08/22/17 00:00 98.8 F Weight Admit Weight 183 lb Weight 183 lb Most Recent Monitor Data Heart Rate from ECG 99 NIBP 143/83 NIBP BP-Mean 113 Respiration from ECG 38 SpO2 92 I&O: 08/21/17 08/22/17 08/23/17 06:59 06:59 06:59 Intake Total 6427 6103 500 Output Total 5031 4030 250 Balance 1396 2073 250 Result Diagrams: 08/19/17 02:43 08/22/17 03:35 <Duane Beckford - Last Filed: 08/22/17 10:05> Phys Exam - Physical Examination Resting comfortably. Mild Tremulous Diminished breath sounds. Cardiovascular: no significant murmur Tachycardic, regular. Gastrointestinal: soft, non-tender, no distention + 2 pitting edema bilaterally LE Neurological: moves all 4 limbs Deviation from normal: Oriented to self, and intermittent orientation to place per nurse <Juana Valdez - Last Filed: 08/22/17 05:56> Dx/Plan (1) Delirium tremens Code(s): F10.231 - ALCOHOL DEPENDENCE WITH WITHDRAWAL DELIRIUM Status: Acute Plan: Patient is now about day 5 which should be the peak of the DT's. His heart rate has improved, and his delirium is clearing up. Will continue to monitor on telemetry. Will transfer to telemetry today. Continue ASE protocol, and Librium. ASE score's have been under 10. Just one dose of Ativan last night. (2) Alcoholic hepatitis Code(s): K70.10 - ALCOHOLIC HEPATITIS WITHOUT ASCITES Status: Chronic Plan: Counselled on cessation. (3) Alcohol withdrawal Code(s): F10.239 - ALCOHOL DEPENDENCE WITH WITHDRAWAL, UNSPECIFIED Status: Chronic (4) Hypokalemia Code(s): E87.6 - HYPOKALEMIA Status: Acute Plan: Replaced and recheck. Replace mag and recheck. (5) Rhabdomyolysis Code(s): M62.82 - RHABDOMYOLYSIS Status: Acute Plan: Will decrease fluids from 200 to 100, Now that he is tolerating PO and encourage fluid intake. <Juana Valdez - Last Filed: 08/22/17 05:56> Attending Addendum - Attending Addendum I personally evaluated the patient and discussed the management with Dr. Phillips. I agree with the History, Examination, Assessment and Plan documented above. Pt improved and plan to transfer to tele medical later today. <Duane Beckford - Last Filed: 08/22/17 10:05>
[2017-08-22] MEDS ORDERED: Magnesium 2 GM/NS 0.9% 100 ML 2 GM in Premix Bag 1 BAG IVPB SCH (06:15)
[2017-08-22 06:34] LABS: CK (CPK) 28167 U/L (30-200)
[2017-08-22] MEDS: Multivitamin W/ Minerals 1 TAB PO SCH (07:44)
[2017-08-22] MEDS: Folic Acid 1 MG TAB PO SCH (07:44)
[2017-08-22] MEDS: Magnesium Oxide 400 MG TAB PO SCH (07:45)
[2017-08-22] MEDS: Famotidine 20 MG TAB PO SCH ×2 (07:45→21:17)
[2017-08-22] MEDS: Enoxaparin Sodium 40 MG/0.4 ML SYRINGE SC SCH (08:23)
[2017-08-22] MEDS: Calcium Carbonate 500 MG ChewTAB PO SCH (08:26)
[2017-08-22] MEDS ORDERED: Furosemide 100 MG/10 ML VIAL SLOW IVP SCH (10:00)
--- NOTE | 2017-08-22 11:09 | RAD ---
CHEST 1 VIEW: HISTORY: Dyspnea. Rhabdomyolysis. COMPARISON: 08/18/17. FINDINGS: Cardiac silhouette is magnified by projection. Shallow inspiration accentuates pulmonary markings. Minimal linear atelectasis is present at the lung bases. Pulmonary vasculature is within normal limi ts. No lobar consolidation or evidence of pneumothorax. IMPRESSION: Shallow inspiration. No active cardiopulmonary abnormalities are demonstrated. POS: [facility]
--- NOTE | 2017-08-22 11:36 | PRG ---
DATE OF SERVICE: 08/22/2017 SUBJECTIVE: Mr. Ramirez has a little more labored respirations today. OBJECTIVE: VITAL SIGNS: He is afebrile, heart rate is 100, respiratory rates in the high 20s, oximetry is 93 on room air. LUNGS: He has audible wheezes diffusely. HEART: Regular rhythm. ABDOMEN: Soft. EXTREMITIES: Without asymmetry. His intake and output is positive 2073 mL. Since admission, he is up to 13 liters. PLAN: We will order a chest radiograph. I am not sure he is ready to move out to the critical care unit given his subtle decline in respiratory function. We will see what the radiograph looks like. Critical care time was 30 minutes.
--- NOTE | 2017-08-23 06:28 | PDOC.FM ---
- Subjective Subjective: Mr. Ramirez is up and eating this morning. He states that he is sore because of the daily exercises he does. He otherwise feels well and has no complaints. - Objective MAR Reviewed: Yes Vital Signs & Weight: Vital Signs (12 hours) Temp Pulse Resp Pulse Ox 08/23/17 05:54 100 18 93 L 08/23/17 05:00 98.8 F 08/23/17 02:16 94 L 08/23/17 00:00 98.7 F 08/22/17 22:35 94 L 08/22/17 20:00 99.2 F 97 23 H 92 L 08/22/17 18:56 94 L 08/22/17 18:54 99 22 H 94 L Weight Admit Weight 83.007 kg Weight 83.007 kg Most Recent Monitor Data Heart Rate from ECG 107 NIBP 115/104 NIBP BP-Mean 110 Respiration from ECG 20 SpO2 94 I&O: 08/21/17 08/22/17 08/23/17 06:59 06:59 06:59 Intake Total 6490 6103 6013 Output Total 5031 4030 4905 Balance 1396 2073 1108 Result Diagrams: 08/19/17 02:43 08/23/17 05:37 <Stephanie Mcmahon - Last Filed: 08/23/17 09:20> - Objective Vital Signs & Weight: Vital Signs (12 hours) Temp Pulse Resp Pulse Ox 08/23/17 10:08 141 H 17 99 08/23/17 08:00 98.3 F 08/23/17 05:54 100 18 93 L 08/23/17 05:00 98.8 F 08/23/17 02:16 94 L 08/23/17 00:00 98.7 F Weight Admit Weight 83.007 kg Weight 83.007 kg Most Recent Monitor Data Heart Rate from ECG 106 NIBP 123/84 NIBP BP-Mean 92 Respiration from ECG 20 SpO2 94 I&O: 08/22/17 08/23/17 08/24/17 06:59 06:59 06:59 Intake Total 6103 6013 500 Output Total 4030 4905 490 Balance 2073 1108 10 Result Diagrams: 08/19/17 02:43 08/23/17 05:37 <Joe Byrne - Last Filed: 08/23/17 11:48> Phys Exam - Physical Examination Constitutional: NAD HEENT: PERRLA, moist MMs Neck: supple Respiratory: no wheezing, clear to auscultation bilateral tachycardic, no significant murmur Gastrointestinal: soft, non-tender, no distention, positive bowel sounds non-pitting edema to BL ankles not following commands consistently, will not extend feet Psychiatric: normal affect Deviation from normal: oriented x1, states he is at home and it is 1945 Skin: no rash, normal turgor Deviation from normal: tattoos, erythema to R lemus <Stephanie Mcmahon - Last Filed: 08/23/17 09:20> Dx/Plan (1) THOR (acute kidney injury) Code(s): N17.9 - ACUTE KIDNEY FAILURE, UNSPECIFIED Status: Acute (2) Delirium tremens Code(s): F10.231 - ALCOHOL DEPENDENCE WITH WITHDRAWAL DELIRIUM Status: Acute (3) Rhabdomyolysis Code(s): M62.82 - RHABDOMYOLYSIS Status: Acute (4) Alcohol withdrawal Code(s): F10.239 - ALCOHOL DEPENDENCE WITH WITHDRAWAL, UNSPECIFIED Status: Chronic (5) Hypokalemia Code(s): E87.6 - HYPOKALEMIA Status: Acute (6) Alcoholic hepatitis Code(s): K70.10 - ALCOHOLIC HEPATITIS WITHOUT ASCITES Status: Chronic - Plan Plan: 1. Severe ETOH withdrawal and Delirium Tremens - Remains oriented x1 - Can hold conversation but is often not logical with responses - Continue librium taper - Ativan PRN - Continue thiamine, folic acid, multivitamin, Mg and Calcium - ASE protocol 2. Tachycardia - [x] a flutter - Continue metoprolol - Echo dCHF with EF 60-65% 3. Rhabdomyolysis - CK downtrending - Continue PO hydration and strict I/O monitoring 4. Fatty liver - Dietary modifications 5. Deconditioning - Unclear what baseline is - Will reach out to daughter today - Continue PT 6. Hypokalemia - Continue repletion 7. Transaminitis - Downtrending - Hep B, C, RPR and HIV neg - 2/2 acute alcoholic hepatitis - Continue to monitor PPX: Lovenox and famotidine Dispo: Possible transfer to floor <Stephanie Mcmahon E - Last Filed: 08/23/17 09:20> Attending Addendum - Attending Addendum I personally evaluated the patient and discussed the management with Dr. Mcmahon I agree with the History, Examination, Assessment and Plan documented above with any addition or exceptions noted below. Patient remains confused CK downtrending , LE with concern stasis dermatitis wound care prn <Joe Byrne - Last Filed: 08/23/17 11:48>
[2017-08-23 06:30] LABS: ALT (SGPT) 232 U/L (8-55); AST (SGOT) 629 U/L (5-34); Albumin 2.6 g/dL (3.4-4.8); Alkaline Phosphatase 65 U/L (40-150); Anion Gap 11 mmol/L (10-20); BUN (Urea Nitrogen) 9 mg/dL (8.4-25.7); Calc. Creatinine Clearance 110 mL/min (70-130); Carbon Dioxide 27 mmol/L (23-31); Chloride 100 mmol/L (98-107); Estimated GFR-MDRD Greater than 90; Globulin 2.7 g/dL (2.4-3.5); Glucose 112 mg/dL (83-110); Potassium 3.2 mmol/L (3.5-5.1); Protein, Total 5.3 g/dL (5.8-8.1); Sodium 135 mmol/L (136-145)
[2017-08-23 06:57] LABS: CK (CPK) 17619 U/L (30-200)
--- NOTE | 2017-08-23 08:19 | PRG ---
DATE OF SERVICE: 08/23/2017 He remains encephalopathic. PHYSICAL EXAMINATION: VITAL SIGNS: Pulse 115, sinus tachycardia, blood pressure is 130/80, sats 94% on room air. LABORATORY: His creatinine kinase is still 17,000, AST 629. X-RAY: No acute infiltrates were seen. GENERAL: He is awake, alert, responsive. I's & O's have been 6013 in, 495 out. CHEST: Chest reveals decreased breath sounds, no wheezing. CARDIAC: Normal S1, S2. IMPRESSION: 1. ETOH with delirium. 2. Alcoholic hepatitis. 3. Probably rhabdo. PLAN: Continue PT and supportive care. Hopefully, can transfer out of the ICU to a monitored bed. Aggressive PT. He needs long-term counse ling. I will follow.
[2017-08-23] MEDS: Folic Acid 1 MG TAB PO SCH (09:21)
[2017-08-23] MEDS: Famotidine 20 MG TAB PO SCH ×2 (09:21→20:58)
[2017-08-23] MEDS: Magnesium Oxide 400 MG TAB PO SCH (09:21)
[2017-08-23] MEDS: Multivitamin W/ Minerals 1 TAB PO SCH (09:21)
[2017-08-23] MEDS: Calcium Carbonate 500 MG ChewTAB PO SCH (09:22)
[2017-08-23] MEDS: Enoxaparin Sodium 40 MG/0.4 ML SYRINGE SC SCH (09:22)
[2017-08-23] MEDS: Lorazepam 2 MG/ML VIAL SLOW IVP PRN ×3 (09:23→20:58)
[2017-08-23] MEDS ORDERED: Potassium Chloride 20 MEQ TAB PO SCH (09:45)
[2017-08-23 14:23] LABS: Ionized Calcium 3.9 mg/dL (4.5-5.6)
[2017-08-23] MEDS: Sodium Chloride 0.9% 500 ML IV SCH ×3 (15:00→17:15)
[2017-08-24] MEDS: Lorazepam 2 MG/ML VIAL SLOW IVP PRN ×3 (00:55→11:56)
[2017-08-24 05:13] LABS: ALT (SGPT) 201 U/L (8-55); AST (SGOT) 439 U/L (5-34); Albumin 2.4 g/dL (3.4-4.8); Alkaline Phosphatase 57 U/L (40-150); Anion Gap 7 mmol/L (10-20); BUN (Urea Nitrogen) 9 mg/dL (8.4-25.7); Bilirubin, Total 0.9 mg/dL (0.2-1.2); Calc. Creatinine Clearance 103 mL/min (70-130); Calcium 8.2 mg/dL (7.8-10.44); Carbon Dioxide 32 mmol/L (23-31); Chloride 99 mmol/L (98-107); Estimated GFR-MDRD Greater than 90; Globulin 2.5 g/dL (2.4-3.5); Glucose 95 mg/dL (83-110); Protein, Total 4.9 g/dL (5.8-8.1); Sodium 135 mmol/L (136-145)
[2017-08-24 05:38] LABS: CK (CPK) 8533 U/L (30-200)
--- NOTE | 2017-08-24 06:53 | PDOC.FM ---
- Subjective Subjective: Remains oriented x1. He had some runs of tachycardia last night for which he was asymtomatic. I spoke with his daughter Kathy at length this morning who provided input that there is likely an underlying dementia. His father's side of the family had a strong history of Alzheimers and his mother's side of the family had dementia as well. He has no complaints this morning and denies any pain. Mini mental status exam is 12. - Objective MAR Reviewed: Yes Vital Signs & Weight: Vital Signs (12 hours) Temp Pulse Resp BP Pulse Ox 08/24/17 04:00 98.2 F 08/24/17 02:50 100 26 H 95 08/24/17 00:00 98.7 F 08/23/17 22:49 98 16 95 08/23/17 20:00 98.3 F 98 21 H 140/61 97 08/23/17 19:12 100 18 96 Weight Admit Weight 83.007 kg Weight 88.6 kg Most Recent Monitor Data Heart Rate from ECG 102 NIBP 126/97 NIBP BP-Mean 117 Respiration from ECG 17 SpO2 95 I&O: 08/22/17 08/23/17 08/24/17 06:59 06:59 06:59 Intake Total 6103 6013 1147 Output Total 4030 4905 3180 Balance 2073 8 -2032 Result Diagrams: 08/19/17 02:43 08/24/17 04:10 EKG Reviewed by me: Yes (tele strip reviewed) Phys Exam - Physical Examination Constitutional: NAD HEENT: sclera anicteric bruising on R face, under eye, improved from yesterday Neck: supple Respiratory: no wheezing, clear to auscultation bilateral Cardiovascular: RRR, no significant murmur intermittently tachycardic Gastrointestinal: soft, non-tender, no distention, positive bowel sounds tense edema to BLE, redness to R lemus, bullae on posterior R knee not following commands clearly, weak in BLE Psychiatric: normal affect Deviation from normal: oriented x1 Deviation from normal: erythema R lemus, 2+ edema to knees, BL ankle swelling, bruising on R face Dx/Plan (1) THOR (acute kidney injury) Code(s): N17.9 - ACUTE KIDNEY FAILURE, UNSPECIFIED Status: Acute (2) Delirium tremens Code(s): F10.231 - ALCOHOL DEPENDENCE WITH WITHDRAWAL DELIRIUM Status: Acute (3) Rhabdomyolysis Code(s): M62.82 - RHABDOMYOLYSIS Status: Acute (4) Alcohol withdrawal Code(s): F10.239 - ALCOHOL DEPENDENCE WITH WITHDRAWAL, UNSPECIFIED Status: Chronic (5) Hypokalemia Code(s): E87.6 - HYPOKALEMIA Status: Acute (6) Alcoholic hepatitis Code(s): K70.10 - ALCOHOLIC HEPATITIS WITHOUT ASCITES Status: Chronic (7) Cellulitis Code(s): L03.90 - CELLULITIS, UNSPECIFIED Status: Acute (8) Confusion and disorientation Code(s): F99 - MENTAL DISORDER, NOT OTHERWISE SPECIFIED Status: Acute - Plan Plan: 1. Severe ETOH withdrawal and Delirium Tremens - Remains oriented x1 - Can hold conversation but is often not logical with responses - Continue librium taper - Ativan PRN - Continue thiamine, folic acid, multivitamin, Mg and Calcium - ASE protocol 2. Tachycardia - [x] a flutter - Continue metoprolol - Echo dCHF with EF 60-65% - Intermittent and increases with activity - Tele strip reviewed from last night with possible areas of SVT and/or a fib with RVR but transient and unable to obtain EKG 3. Rhabdomyolysis - CK downtrending - Continue PO hydration and strict I/O monitoring 4. Fatty liver - Dietary modifications 5. Deconditioning - Unclear what baseline is - Per daughter, strong family history of Alzheimer's and other types of dementia - Continue PT - Will need placement, it is not safe for him to be at home alone 6. Hypokalemia - Continue repletion 7. Transaminitis - Downtrending - Hep B, C, RPR and HIV neg - 2/2 acute alcoholic hepatitis - Continue to monitor 8. Confusion and disorientation - MMSE 12 today - No cogwheel rigidity but resting tremor RUE > LUE with thumb twitching - From discussion with daughter it sounds like this is approaching patient's baseline 9. RLE cellulitis - Worsening over last couple of days - Will start clinda for cellulitis and monitor for improvement - Nontender, afebrile, no elevated WBC PPX: Lovenox and famotidine Dispo: Transfer to floor with sitter
[2017-08-24] MEDS ORDERED: Potassium Chloride 20 MEQ TAB PO SCH (08:00)
[2017-08-24] MEDS: Enoxaparin Sodium 40 MG/0.4 ML SYRINGE SC SCH (09:58)
[2017-08-24] MEDS: Multivitamin W/ Minerals 1 TAB PO SCH (09:58)
[2017-08-24] MEDS: Magnesium Oxide 400 MG TAB PO SCH (09:58)
[2017-08-24] MEDS: Famotidine 20 MG TAB PO SCH ×2 (09:58→21:02)
[2017-08-24] MEDS: Calcium Carbonate 500 MG ChewTAB PO SCH (09:59)
[2017-08-24] MEDS: Folic Acid 1 MG TAB PO SCH (09:59)
--- NOTE | 2017-08-24 10:06 | PRG ---
DATE OF SERVICE: 08/24/2017 SUBJECTIVE: This morning, he is awake, alert, responsive, appears to be less agitated. We tried to get him out of the ICU. His encephalopathy and delirium seems to be improved. OBJECTIVE: VITAL SIGNS: Blood pressure is 126/97, sats 97% on room air, respiratory rate 22, pulse 105, tempera ture 98. CHEST: No wheezing. CARDIAC: Normal S1, S2. No gallops. ABDOMEN: Soft. No masses. IMPRESSION: 1. Status post ETOH abuse, alcohol withdrawal improved. 2. Markedly elevated creatinine kinase, is much improved, multiple bruising. We can transfer out of the ICU. Supportive care, decrease NEBs to 3 times a day. We will follow while in the ICU.
--- NOTE | 2017-08-24 12:56 | ADD-PRG ---
DATE OF SERVICE: 08/24/2017 This is an addendum to the note of Dr. Stephanie Mcmahon. Mr. Ramirez is awake and alert. He is exhibiting no tremulousness or agitation at this time. His pot assium is still low at 3.0 and I would recommend that we treat this much more aggressively up to and including 40 mEq p.o. t.i.d. until he has at least above 4. His rhabdomyolysis is improving. He had started with a CK greater than 40,000 dropping yesterday to 17,000, today at 8500. Renal function s eems steady. His BUN is 9, creatinine 0.74 compared to 0.69 yesterday. He also has hand tremor that could be consistent with Parkinson's disease and will need neurological evaluation after discharge. From our standpoint, he is stable for discharge to a regular medical floor bed. We will continue to monitor his potassium, his mental status, his liver functions, and his CK. He did not meet criteria for prednisolone treatment of his alcoholic hepatitis.
[2017-08-24] MEDS: Clindamycin 150 MG CAP PO SCH ×2 (13:40→17:41)
[2017-08-24 14:19] LABS: Calcitriol (1,25 di-OH Vit D) 48.9 pg/mL (19.9-79.3)
[2017-08-24] MEDS: Potassium Chloride 20 MEQ TAB PO SCH (17:11)
[2017-08-25] MEDS: Clindamycin 150 MG CAP PO SCH ×4 (00:13→17:16)
[2017-08-25 05:25] LABS: ALT (SGPT) 185 U/L (8-55); AST (SGOT) 307 U/L (5-34); Albumin 2.4 g/dL (3.4-4.8); Alkaline Phosphatase 53 U/L (40-150); Anion Gap 9 mmol/L (10-20); BUN (Urea Nitrogen) 12 mg/dL (8.4-25.7); Bilirubin, Total 0.8 mg/dL (0.2-1.2); CK (CPK) 3927 U/L (30-200); Calc. Creatinine Clearance 105 mL/min (70-130); Calcium 8.5 mg/dL (7.8-10.44); Carbon Dioxide 30 mmol/L (23-31); Chloride 100 mmol/L (98-107); Estimated GFR-MDRD Greater than 90; Globulin 2.5 g/dL (2.4-3.5); Glucose 108 mg/dL (83-110); Magnesium 1.5 mg/dL (1.6-2.6); Phosphorus 3.1 mg/dL (2.3-4.7); Potassium 3.8 mmol/L (3.5-5.1); Protein, Total 4.9 g/dL (5.8-8.1); Sodium 135 mmol/L (136-145)
--- NOTE | 2017-08-25 06:01 | PRG ---
DATE OF SERVICE: 08/25/2017 He is better. He is less encephalopathic. PHYSICAL EXAMINATION: VITAL SIGNS: Blood pressure 110/65, sats are adequate at 98, pulse 80, temperature 98. CHEST: Chest revealed decreased breath sounds, no wheezing. HEART: Normal S1-S2. ABDOMEN: Soft, no masses. IMPRESSION: 1. Status post alcohol intoxication and withdrawal. 2. Abnormal liver function. 3. Abnormal CPK. 4. Severe deconditioning. PLAN: He can transfer out of the ICU. Continue PT, and supportive care. Eventually long-term couns eling and placement.
--- NOTE | 2017-08-25 06:34 | PDOC.FM ---
- Subjective Subjective: Remains oriented x1 (to person only). He has no complaints currently and denies LE pain. He is moving all extremities but remains weak and not following commands for strength eval in lower extremities. He continues to ask to get up to urinate directly after urinating in urinal. - Objective MAR Reviewed: Yes Vital Signs & Weight: Vital Signs (12 hours) Temp Pulse Resp BP Pulse Ox 08/25/17 04:00 98.7 F 110/64 08/25/17 00:00 98.4 F 103/66 08/24/17 22:38 96 16 97 08/24/17 20:00 98.2 F 101 H 19 131/73 95 08/24/17 18:52 98 16 96 Weight Admit Weight 83.007 kg Weight 88.6 kg Most Recent Monitor Data Heart Rate from ECG 99 NIBP 110/64 NIBP BP-Mean 85 Respiration from ECG 19 SpO2 94 I&O: 08/23/17 08/24/17 08/25/17 06:59 06:59 06:59 Intake Total 6013 1147 1778 Output Total 4905 3180 1600 Balance 1108 -2033 178 Result Diagrams: 08/19/17 02:43 08/25/17 04:56 Phys Exam - Physical Examination Constitutional: NAD fidgity, tremor noted in RUE at rest HEENT: moist MMs, sclera anicteric Neck: supple Respiratory: no wheezing, clear to auscultation bilateral Cardiovascular: no significant murmur tachycardic Gastrointestinal: soft, non-tender, no distention, positive bowel sounds 2+ edema to shins BL, trace to hips Neurological: non-focal, normal sensation, moves all 4 limbs weakness in BLE Psychiatric: normal affect Deviation from normal: oriented x1 Skin: cap refill <2 seconds Deviation from normal: erythema to R lemus, demarcated today, stable Dx/Plan (1) THOR (acute kidney injury) Code(s): N17.9 - ACUTE KIDNEY FAILURE, UNSPECIFIED Status: Acute (2) Delirium tremens Code(s): F10.231 - ALCOHOL DEPENDENCE WITH WITHDRAWAL DELIRIUM Status: Acute (3) Rhabdomyolysis Code(s): M62.82 - RHABDOMYOLYSIS Status: Acute (4) Alcohol withdrawal Code(s): F10.239 - ALCOHOL DEPENDENCE WITH WITHDRAWAL, UNSPECIFIED Status: Chronic (5) Hypokalemia Code(s): E87.6 - HYPOKALEMIA Status: Acute (6) Alcoholic hepatitis Code(s): K70.10 - ALCOHOLIC HEPATITIS WITHOUT ASCITES Status: Chronic (7) Cellulitis Code(s): L03.90 - CELLULITIS, UNSPECIFIED Status: Acute (8) Confusion and disorientation Code(s): F99 - MENTAL DISORDER, NOT OTHERWISE SPECIFIED Status: Acute - Plan Plan: 1. Severe ETOH withdrawal and Delirium Tremens, resolved? - Day 7 at least without alcohol - Remains oriented x1 - Can hold conversation but is often not logical with responses - Continue librium, will increase today to see if it assists with persistent tachycardia - Ativan PRN, last use 08/24 around noon - Continue thiamine, folic acid, multivitamin, Mg and Calcium - ASE protocol 2. Confusion and disorientation - Per family, worsening over the last 12 months with superimposed alcohol abuse - MMSE 12 on 08/24 - No cogwheel rigidity but resting tremor RUE > LUE with thumb twitching - From discussion with daughter it sounds like this is approaching patient's baseline - Appreciate Dr. Pham's assistance with determining likely etiology of disorientation at this point and recommendations - Will look for placement upon discharge as patient is not safe to be at home alone 3. Tachycardia - [x] a flutter, sinus tach currently - Continue metoprolol - Echo dCHF with EF 60-65% - Intermittent and increases with activity - Will increase librium dose this morning and monitor 4. Rhabdomyolysis - CK downtrending - Continue PO hydration and strict I/O monitoring - Flores D/C'd 08/24 5. Fatty liver - Dietary modifications 6. Deconditioning - Unclear what baseline is - Per daughter, strong family history of Alzheimer's and other types of dementia - Continue PT - Will need placement, it is not safe for him to be at home alone 7. Hypokalemia, improving - Continue repletion 8. Transaminitis - Downtrending - Hep B, C, RPR and HIV neg - 2/2 acute alcoholic hepatitis - Continue to monitor 9. RLE cellulitis - Continue Clinda - Nontender, afebrile, no elevated WBC - Demarcated 08/25, will continue to monitor for worsening PPX: Lovenox and famotidine Dispo: Transfer to floor with sitter
[2017-08-25] MEDS: Potassium Chloride 20 MEQ TAB PO SCH ×2 (08:41→17:15)
[2017-08-25] MEDS: Multivitamin W/ Minerals 1 TAB PO SCH (08:41)
[2017-08-25] MEDS: Famotidine 20 MG TAB PO SCH ×2 (08:41→21:14)
[2017-08-25] MEDS: Magnesium Oxide 400 MG TAB PO SCH (08:41)
[2017-08-25] MEDS: Calcium Carbonate 500 MG ChewTAB PO SCH (08:41)
[2017-08-25] MEDS: Enoxaparin Sodium 40 MG/0.4 ML SYRINGE SC SCH (08:42)
[2017-08-25] MEDS: Folic Acid 1 MG TAB PO SCH (08:42)
[2017-08-25] MEDS ORDERED: Furosemide 20 MG/2 ML VIAL SLOW IVP SCH (10:15)
[2017-08-25] MEDS: Lorazepam 2 MG/ML VIAL SLOW IVP PRN (12:14)
[2017-08-25] MEDS ORDERED: Diltiazem 125 MG in Sodium Chloride 0.9% 100 ML IVPB SCH (13:00)
--- NOTE | 2017-08-25 13:33 | ADD-PRG ---
DATE OF SERVICE: 08/25/2017 This is an addendum to the note of Dr. Stephanie Mcmahon. Mr. Ramirez is awake and alert this morning. He demonstrates no distress. He demonstrates no agitati on or anxiety. He is confused as his usual state. His CK has dropped to 3900. The area on his righ t lower extremity appears to be stasis dermatitis, but we will treat it for several days with antibio tics and if no improvement, they will be discontinued. We are awaiting placement in a regular medica l room as soon as we can arrange for a sitter.
[2017-08-25] MEDS ORDERED: Sodium Chloride 0.9% 500 ML IV SCH (13:45)
[2017-08-25] MEDS ORDERED: Digoxin 0.5 MG/2 ML AMP SLOW IVP SCH (13:45)
--- NOTE | 2017-08-25 13:48 | PDOC.EVN ---
Event Note - Event Note Event Note: Paged by nurse as patient was going in and out of atrial fibrillation. HR 150- 160's. Obtained a stat EKG and Cardiac enzymes. SBP was 90-100's. Given Cardizem bolus of 10mg IV, and a 500cc bolus of NS and then discussed with Dr. Seaman and ordered Digoxin 0.5mg. Dr. Seaman was consulted and appreciate her recommendations. Will f/u with labs and EKG.
[2017-08-25 14:12] LABS: CKMB 5.1 ng/mL (0-6.6); Troponin I 0.042 ng/mL (< 0.028)
--- NOTE | 2017-08-25 15:51 | EKG ---
Test Reason : Blood Pressure : / mmHG Vent. Rate : 140 BPM Atrial Rate : 133 BPM P-R Int : 000 ms QRS Dur : 078 ms QT Int : 318 ms P-R-T Axes : 000 051 134 degrees QTc Int : 485 ms Atrial tachycardia with rapid ventricular response Nonspecific ST abnormalty Abnormal ECG Confirmed by ANAMARIA NORRIS ([id number]) on 08/25/2017 3:50:18 PM Referred By: KARTHIK Confirmed By:ANAMARIA NORRIS
[2017-08-25] MEDS ORDERED: Sodium Chloride 0.9% 1,000 ML IV SCH (16:00)
[2017-08-25] MEDS ORDERED: Metoprolol Tartrate 5 MG/5 ML VIAL ONE (16:24)
[2017-08-25] MEDS ORDERED: Metoprolol Tartrate 5 MG/5 ML VIAL IVP SCH (16:45)
[2017-08-25] MEDS ORDERED: Amiodarone In Dextrose 200 ML IVPB SCH (17:00)
[2017-08-25] MEDS: Amiodarone HCl 450 MG, Admixture Fee 1 EACH in Dextrose 5% in Water 250 ML IVPB SCH (18:00)
--- NOTE | 2017-08-25 19:55 | ULT ---
ULTRASOUND BILATERAL LOWER EXTREMITY VENOUS DOPPLER 08/25/17 HISTORY: Lower extremity edema, cellulitis. COMPARISON: None. TECHNIQUE: Ultrasound leroy scale, color doppler and spectral analysis of bilateral lower extremity venous system is performed. The common femoral, femoral, proximal portion of the greater saphenous and deep femora l veins as well as the popliteal and posterior tibial veins were interrogated. The bilateral popliteal veins are poorly evaluated due to overlying bandages and wounds. Extensive lo wer extremity edema. No filling defects. IMPRESSION: No deep vein thrombosis. POS: JOSE
--- NOTE | 2017-08-25 21:30 | CON ---
DATE OF ADMISSION: 08/18/2017 DATE OF CONSULTATION: 08/25/2017 INDICATION FOR CONSULTATION: A 72-year-old patient with atrial fibrillation and flutter with rapid v entricular response, alternating with sinus rhythm occasionally, but then backed to flutter and fib. He is a very unfortunate 72-year-old gentleman who has a long history of alcohol abuse, was found do wn by the neighbors on the date of admission. He had some mental status changes. He apparently has had been down on the floor for quite some time and had now developed also rhabdomyolysis. He had sig nificant elevation of the CPK. When he arrived, there is no indication that he had any myocardial in farction. According to the family, he does have a history of possible myocardial infarction in the p ast and had cardiac catheterization at least once or twice more than 10 years ago of uncertain etiolo gy, but could have been due to myocardial infarction. He has had an echocardiogram, which shows a no rmal ejection fraction. Since being here, there is no indication he has had any massive heart attack s in the past. Ejection fraction has been normal, but unfortunately continues to be in and out of ju st a regular rapid heart rate. He is more awake and alert. His mental status changes subsequently i mproved apparently since his admission. He denies any chest pain or significant shortness of breath or problems in the past for himself, but he still remains somewhat confused and his family says there is a long history of Alzheimer disease and he has been also diagnosed with possibly early Alzheimer' s. PAST MEDICAL HISTORY: Significant for frequent falls, tonsillectomy and the cardiac catheterization according to the family. ALLERGIES: None. MEDICATIONS PRIOR TO ADMISSION: Include metoprolol, atorvastatin, baby aspirin and [id number] supplements. FAMILY HISTORY: Noncontributory. SOCIAL HISTORY: The patient is an alcoholic. He apparently continued to drink prior to admission. 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 REVIEW OF SYSTEMS: According to the family, 12-point review of systems is unremarkable except what w as noted in the history of present illness. PHYSICAL EXAMINATION: GENERAL: Reveals a middle-aged gentleman who is in no acute distress at this time. He still is some what confused. VITAL SIGNS: His blood pressure is 86/55 and has been in the low 90s. His heart rate is anywhere be tween 70s to 140s with atrial flutter with a variable block. Atrial fibrillation with heart rates in the 140s to 150s, respiratory rate is 20-22, O2 saturations are stable in the 90s. He is afebrile. HEENT: Showed the head to be normocephalic, atraumatic. Carotid pulses are present. I did not hear any bruits. CHEST: Appears to be clear to auscultation. I did not hear any rales, rhonchi or wheezing. CARDIOVASCULAR: Exam reveals an irregular, tachycardia and tachycardia at this time was somewhat kennedy iable rate, still remains relatively regular. I did not hear any significant murmurs, heaves, thrill s, bruits or rubs. ABDOMEN: Soft and nontender. Positive bowel sounds are present. EXTREMITIES: Showed 2-3+ lower extremity edema all the way up to the groin area with some excoriatio ns and knee is wrapped in surgical dressings. There are ulcerations or blisters on the knees and mos t likely pressure due to pressure since the patient was found on the floor for unknown length of time . The lower extremity edema is present. He does have normal pedal pulses. SKIN: Warm and dry. IMPRESSION AND PLAN: 1. His EKG shows atrial flutter with rapid ventricular response. Occasionally, hi heart rate has sl owed down and he has 4:1 block with his atrial flutter. He has been given digoxin as well as 1 mg of IV metoprolol which did slow the rate for only a slight period of time, then it increased again. We will consider starting him on diltiazem. This may lower the blood pressure too much and I will star t him on amiodarone. I would suggest he have an EP consultation to see whether or not he is a candid ate for flutter ablation since it is very difficult to control the rate. We may have more luck with controlling the atrial fibrillation than we will with the flutter. There is no indication he has any ischemic changes with a rapid heart rate and I suspect he has no significant coronary artery disease at this time and we can certainly evaluate this at later date. 2. History of alcohol abuse and he will need some assistance for stopping the alcohol. 3. History of hypercholesterolemia, he is on atorvastatin. When he is more awake and alert, we will need to continue these medications. We will be more than happy to continue to follow the patient wi th you. He does have multiple problems. He has undergone a CT scan. There has been no acute proces s apparently. 4. Lower extremity edema and we will continue to follow this. He would have a venous ultrasound to ensure that he does not have any major DVT and so in view of the fact that he may need to undergo an EP study with ablation of the atrial flutter, which would require going to the venous system and hope fully there will be no lower extremity DVTs. He is on a low dose of Lovenox at this time. We may ne ed to increase the dose as there has been no obvious bleeding and he does continue to have atrial flu tter and fibrillation.
[2017-08-26] MEDS: Clindamycin 150 MG CAP PO SCH ×4 (00:13→17:27)
[2017-08-26] MEDS: Amiodarone HCl 450 MG, Admixture Fee 1 EACH in Dextrose 5% in Water 250 ML IVPB SCH ×2 (03:36→18:44)
[2017-08-26] MEDS ORDERED: Acetaminophen 325 MG TAB PO PRN ×2 (04:37→04:41)
[2017-08-26] MEDS ORDERED: Acetaminophen 325 MG TAB PO SCH (04:45)
[2017-08-26 05:34] LABS: ALT (SGPT) 176 U/L (8-55); AST (SGOT) 228 U/L (5-34); Albumin 2.5 g/dL (3.4-4.8); Alkaline Phosphatase 52 U/L (40-150); Anion Gap 10 mmol/L (10-20); BUN (Urea Nitrogen) 12 mg/dL (8.4-25.7); Bilirubin, Total 0.9 mg/dL (0.2-1.2); CK (CPK) 2142 U/L (30-200); Calc. Creatinine Clearance 111 mL/min (70-130); Calcium 8.7 mg/dL (7.8-10.44); Carbon Dioxide 28 mmol/L (23-31); Chloride 99 mmol/L (98-107); Estimated GFR-MDRD Greater than 90; Globulin 2.5 g/dL (2.4-3.5); Glucose 97 mg/dL (83-110); Potassium 4.3 mmol/L (3.5-5.1); Sodium 133 mmol/L (136-145)
--- NOTE | 2017-08-26 06:56 | PDOC.FM ---
- Subjective Subjective: Mr. Ramirez feels well this morning. He is upset because his cell phone is missing. He denies any pain and tolerated his breakfast this morning. - Objective MAR Reviewed: Yes Vital Signs & Weight: Vital Signs (12 hours) Temp Pulse Resp BP BP Pulse Ox 08/26/17 06:23 95 08/26/17 06:21 98 18 98 08/26/17 05:40 98.2 F 92 16 137/72 94 L 08/26/17 00:35 98.3 F 96 20 132/71 132/71 95 08/26/17 00:09 96 23 H 96 08/26/17 00:00 98.1 F 08/25/17 20:00 98.9 F 95 23 H 125/75 94 L Weight Admit Weight 83.007 kg Weight 89.267 kg Most Recent Monitor Data Heart Rate from ECG 85 NIBP 133/75 NIBP BP-Mean 101 Respiration from ECG 19 SpO2 96 I&O: 08/24/17 08/25/17 08/26/17 06:59 06:59 06:59 Intake Total 1147 1878 2849 Output Total 3180 1800 3875 [facility]2032 78 -1026 Result Diagrams: 08/19/17 02:43 08/26/17 04:44 EKG Reviewed by me: Yes <Stephanie Mcmahon - Last Filed: 08/26/17 09:23> - Objective Vital Signs & Weight: Vital Signs (12 hours) Temp Pulse Resp BP BP Pulse Ox 08/26/17 08:00 98.5 F 97 22 H 115/61 91 L 08/26/17 07:37 98.5 F 97 22 H 121/58 L 91 L 08/26/17 06:23 95 08/26/17 06:21 98 18 98 08/26/17 05:40 98.2 F 92 16 137/72 137/72 94 L 08/26/17 00:35 98.3 F 96 20 132/71 132/71 95 08/26/17 00:09 96 23 H 96 08/26/17 00:00 98.1 F Weight Admit Weight 83.007 kg Weight 89.267 kg Most Recent Monitor Data Heart Rate from ECG 85 NIBP 133/75 NIBP BP-Mean 101 Respiration from ECG 19 SpO2 96 I&O: 08/25/17 08/26/1718 06:59 06:59 06:59 Intake Total 1878 2849 250 Output Total 1800 3875 200 Balance 78 -1026 50 Result Diagrams: 08/19/17 02:43 08/26/17 04:44 <Joe Byrne - Last Filed: 08/26/17 11:08> Phys Exam - Physical Examination Constitutional: NAD HEENT: moist MMs, sclera anicteric Neck: supple Respiratory: no wheezing, clear to auscultation bilateral Cardiovascular: RRR, no significant murmur Gastrointestinal: soft, non-tender, no distention, positive bowel sounds 2+ pitting edema to legs Neurological: moves all 4 limbs weakness in BLE Psychiatric: normal affect Deviation from normal: oriented x1 Deviation from normal: redness in RLE improving, posterior knees blistered <Stephanie Mcmahon - Last Filed: 08/26/17 09:23> Dx/Plan (1) THOR (acute kidney injury) Code(s): N17.9 - ACUTE KIDNEY FAILURE, UNSPECIFIED Status: Acute (2) Delirium tremens Code(s): F10.231 - ALCOHOL DEPENDENCE WITH WITHDRAWAL DELIRIUM Status: Acute (3) Rhabdomyolysis Code(s): M62.82 - RHABDOMYOLYSIS Status: Acute (4) Alcohol withdrawal Code(s): F10.239 - ALCOHOL DEPENDENCE WITH WITHDRAWAL, UNSPECIFIED Status: Chronic (5) Hypokalemia Code(s): E87.6 - HYPOKALEMIA Status: Acute (6) Alcoholic hepatitis Code(s): K70.10 - ALCOHOLIC HEPATITIS WITHOUT ASCITES Status: Chronic (7) Cellulitis Code(s): L03.90 - CELLULITIS, UNSPECIFIED Status: Acute (8) Confusion and disorientation Code(s): F99 - MENTAL DISORDER, NOT OTHERWISE SPECIFIED Status: Acute - Plan Plan: 1. Severe ETOH withdrawal and Delirium Tremens, resolved? - > 1 week without alcohol - Remains oriented x1 - Can hold conversation but is often not logical with responses - Continue librium - Ativan PRN - Continue thiamine, folic acid, multivitamin, Mg and Calcium - ASE protocol 2. Confusion and disorientation - Per family, worsening over the last 12 months with superimposed alcohol abuse - MMSE 12 on 08/24 - No cogwheel rigidity but resting tremor RUE > LUE with thumb twitching - From discussion with daughter it sounds like this is approaching patient's baseline - Appreciate Dr. Pham's assistance with determining likely etiology of disorientation at this point and recommendations - Will look for placement upon discharge as patient is not safe to be at home alone - Possible underlying dementia 3. A fib/a flutter - Appreciate Dr. Seaman' assistance - On amiodarone drip - Continue metoprolol - Echo dCHF with EF 60-65% - Will await cardiology/EP recs 4. Rhabdomyolysis - CK downtrending - Continue PO hydration and strict I/O monitoring - Flores D/C'd 08/24 5. Fatty liver - Dietary modifications 6. Deconditioning - Unclear what baseline is - Per daughter, strong family history of Alzheimer's and other types of dementia - Continue PT - Will need placement, it is not safe for him to be at home alone 7. Hypokalemia, improving - Continue repletion 8. Transaminitis - Downtrending - Hep B, C, RPR and HIV neg - 2/2 acute alcoholic hepatitis - Continue to monitor 9. RLE cellulitis - Venogram neg for DVT BL - Continue Clinda - Nontender, afebrile, no elevated WBC - Demarcated 08/25, will continue to monitor for worsening - If no improvement or worsening, likely related to venous stasis and will d/c abx 10. Blistering on BLE - Appreciate wound care assistance - Present on admission but increased erythema PPX: Lovenox and famotidine <Stephanie Mcmahon - Last Filed: 08/26/17 09:23> Attending Addendum - Attending Addendum Date/Time: 08/26/17 1104 I personally evaluated the patient and discussed the management with Dr. Mcmahon I agree with the History, Examination, Assessment and Plan documented above with any addition or exceptions noted below. 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
[2017-08-26] MEDS: Calcium Carbonate 500 MG ChewTAB PO SCH (09:04)
[2017-08-26] MEDS: Potassium Chloride 20 MEQ TAB PO SCH ×2 (09:04→17:27)
[2017-08-26] MEDS: Multivitamin W/ Minerals 1 TAB PO SCH (09:04)
[2017-08-26] MEDS: Magnesium Oxide 400 MG TAB PO SCH (09:05)
[2017-08-26] MEDS: Famotidine 20 MG TAB PO SCH ×2 (09:05→21:28)
[2017-08-26] MEDS: Folic Acid 1 MG TAB PO SCH (09:05)
[2017-08-26] MEDS: Enoxaparin Sodium 40 MG/0.4 ML SYRINGE SC SCH (09:05)
--- NOTE | 2017-08-26 09:18 | PDOC.CTH ---
<Vickie Triplett - Last Filed: 08/26/17 09:15> Cardiology Progress Note - Subjective The pt seen and examined. No overnight events. No cardiac complaints. He is still confused about situation and time. - Objective Vital Signs Temp Pulse Resp BP BP Pulse Ox 08/26/17 08:00 115/61 08/26/17 07:37 98.5 F 97 22 H 121/58 L 91 L 08/26/17 06:23 95 08/26/17 06:21 98 18 98 08/26/17 05:40 98.2 F 92 16 137/72 137/72 94 L 08/26/17 00:35 98.3 F 96 20 132/71 132/71 95 08/26/17 00:09 96 23 H 96 08/26/17 00:00 98.1 F Admit Weight 183 lb Weight 196 lb 12.8 oz 08/25/17 08/26/17 08/27/17 06:59 06:59 06:59 Intake Total 1878 2849 Output Total 1800 3875 200 Balance 78 -1026 -200 - Physical Examination Neck: no JVD present Lungs: CTA Heart: RRR Abdomen: other: Extremities: other: (3+ pitting BLE edeam; erhythmia to RLE) - Labs Result Diagrams: 08/19/17 02:43 08/26/17 04:44 Troponin/CKMB CK-MB (CK-2) 5.1 ng/mL (0-6.6) 08/25/17 13:35 Troponin I 0.042 ng/mL (< 0.028) H 08/25/17 13:35 - Assessment/Plan 1. Afib/Aflutter with RVR - remains in SR with Amiodarone IV drip; On Lovenox; EP consult; cont. monitor 2. Rhabdomyolysis - the pt was found down; CK has been improving. 3. RLE cellulitis - Venogram neg for DVT; managed by PCP 4. ETOH abuse - sitter at bedside; AST and ALT improving; 5. Hyponatremia - cont. monitor 6. Hx of falls 7. Alzheimer disease MAR reivewed Review of Systems - Review of Systems Constitutional: reports: see HPI EENTM: reports: see HPI Respiratory: reports: see HPI Cardiac (ROS): reports: see HPI ABD/GI: reports: see HPI : reports: see HPI <SeamanSara - Last Filed: 08/26/17 17:31> Cardiology Progress Note - Objective Vital Signs Temp Pulse Resp BP BP Pulse Ox 08/26/17 16:00 121/77 08/26/17 15:56 97.7 F 105 H 20 121/77 91 L 08/26/17 14:29 80 18 95 08/26/17 12:00 97.4 F L 86 20 121/70 121/70 92 L 08/26/17 08:00 98.5 F 97 22 H 115/61 91 L 08/26/17 07:37 98.5 F 97 22 H 121/58 L 91 L 08/26/17 06:23 95 08/26/17 06:21 98 18 98 08/26/17 05:40 98.2 F 92 16 137/72 137/72 94 L Admit Weight 183 lb Weight 196 lb 12.8 oz 08/25/17 08/26/17 08/27/17 06:59 06:59 06:59 Intake Total 1878 2849 440 Output Total 1800 3875 475 Balance 78 -1026 -35 - Labs Result Diagrams: 08/19/17 02:43 08/26/17 04:44 Troponin/CKMB CK-MB (CK-2) 5.1 ng/mL (0-6.6) 08/25/17 13:35 Troponin I 0.042 ng/mL (< 0.028) H 08/25/17 13:35 - Assessment/Plan Pt. seen and eval. by me. I agree with the A/P by the ADMISSIONS ADVISOR. He will be seen by EP today for the atrial flutter.
--- NOTE | 2017-08-26 12:09 | CON ---
DATE OF CONSULTATION: 08/25/2017 REFERRING PROVIDER: Dr. Stephanie Mcmahon. REASON FOR CONSULTATION: Confusion. HISTORY OF PRESENT ILLNESS: Mr. Ramirez is a 72-year-old male who has been consulted for marina luation of confusion. History is very limited as patient is unable to provide and there are no famil y member present at bedside. Most of the history is obtained from the patient's medical records as w ell as nurse who is taking care of the patient. Apparently, the patient had presented on 08/18 after he was found down. He has a history of alcohol abuse. He was found by neighbors to be on the floor and confused and he was noted to have bruises on the right side of his face and both of his lower ex tremities. Since being admitted to the hospital, he continues to be very disoriented and confused fo r which I am being asked to further evaluate this patient for possible alcohol-induced dementia. Aga in, there are no family members that I could discuss the case with to get further details on his medi tin history. Past medical history, past surgical history, family history, social history, medications and allergie s could not be obtained directly from the patient as dictated in the H&P note done by Dr. Clarissa ying dated 08/19/2017. REVIEW OF SYSTEMS: Unable to perform. PHYSICAL EXAMINATION: VITAL SIGNS: Blood pressure of 172/81, pulse of 110, respirations of 21, O2 sats of 96% on room air and temperature of 98.1. GENERAL: A well-developed, well-nourished male resting in bed in no apparent distress. RESPIRATORY: Clear to auscultation bilaterally. CARDIOVASCULAR: Regular rate and rhythm. NEUROLOGIC: Mental status: The patient is awake and alert. He is oriented to person only. He does not follow any commands. Cranial nerves: Pupils are 3 mm and reactive. He blinks to threat on bot h sides. Face appears symmetric. Motor exam showed normal tone and bulk in both upper extremities. He has significant swelling in both lower extremities. He spontaneously moves both lower extremitie s. His strength in both upper extremities is 5/5. LABORATORY DATA: Labs are reviewed, which included CBC, CMP, CPK, troponin which is significant for AST of 307 and ALT of 185. CPK of 3927. Serum and plasma alcohol level on admission was noted to be 91 mg/dL. IMAGING STUDIES: CT head without contrast done on 08/18/2017 was reviewed, which showed no acute int racranial abnormality. IMPRESSION: 1. Toxic metabolic encephalopathy. 2. Alcohol abuse. PLAN: Mr. Ramirez is a pleasant 72-year-old male who presented after being found down. He w as noted to be confused and disoriented. This is likely suggestive of alcohol-induced delirium treme ns. At this time, alcohol dementia cannot be a given diagnosis as this is acute in nature. I would recommend continuing on thiamin 100 mg daily along with banana bag, continue supportive care and cont inue current medical management. No further neurological workup needed from my standpoint. Thank you for consultation.
[2017-08-26] MEDS: Lorazepam 2 MG/ML VIAL SLOW IVP PRN ×2 (13:10→17:34)
--- NOTE | 2017-08-26 20:53 | CON ---
DATE OF CONSULTATION: 08/26/2017 ELECTROPHYSIOLOGY CONSULTATION REPORT REFERRING PHYSICIAN: Stacey Barillas I am seeing Mr. Ramirez at our [facility] Telemetry Floor as an electrophysiologic domestic travel consultant. His problems are: 1. Newly found atrial flutter with RVR. A. Converted to sinus rhythm after IV diltiazem and amiodarone. 2. History of fall and confusion, possibly due to delirium tremens and ETOH related encephalopathy. 3. Fulgurated rhabdomyolysis, on current admission CK. 4. Remote history of coronary artery disease and possible left heart catheterization, the results are not available, possible SD. B. 2D echo on this admission reveals normal LVEF. 5. Lower extremity edema, possible cellulitis. 6. History of hypercholesterolemia. ALLERGIES: None noted. MEDICATIONS AT HOME: Included metoprolol 50 mg twice a day, Lipitor 80 p.o. at bedtime. SUBJECTIVE: Mr. Ramirez is a very poor historian. Most of the history is obtained from the chart. This gentleman presented with confusion after a fall being found down for an unclear duration by the neighbors. He was noted to be in rhabdomyolysis with elevated CK. Also, the rates were rapid and there was diagnosis of atrial flutter subsequently. He was felt to be having delirium tremens due to alcohol withdrawal. He has had also lower extremity swelling with renal function though remains stable. REVIEW OF SYSTEMS: Currently, he seems to be reasonably stable. No fever, chills, or cough. No stroke-like symptoms, no neurological deficits. No PND or orthopnea either. The rest of the 12-point review of systems is otherwise unremarkable. PAST MEDICAL HISTORY: As above. SOCIAL HISTORY: Patient denies smoking, ETOH, or drug abuse. FAMILY HISTORY: Noncontributory. OBJECTIVE DATA: VITAL SIGNS: Blood pressure is 115/61, heart rate 97, respirations 22, temperature 98.5 degrees Fahrenheit. GENERAL: Alert and oriented man with significant hyper in no apparent distress. NECK: Supple. Jugular veins not distended. CHEST: Coarse without crackles. CARDIOVASCULAR: Heart sounds are regular to rate and rhythm. No murmur or gallop. ABDOMEN: Benign. Bowel sounds are positive. EXTREMITIES: Lower extremities without edema, clubbing, or cyanosis. NEUROLOGIC: Patient is nonfocal. MUSCULOSKELETAL: Without joint swelling or deformities. SKIN: Without rash. DATABASE: EKGs reviewed initially reveals atrial flutter, possibly typical, most depending morphology. Subsequent EKGs reveals sinus rhythm. LABORATORY DATA: Initial CK 80 and increased this to 598. Troponin I is initial 0.7 and increased to 0.9. Initial sodium 142, potassium 3.6, BUN 25, creatinine 1.1. BNP is 510 on 15th. TSH 2.6. White cell count with 9.3 , hemoglobin 15.2 and then 15.5, platelet count 194 and 158. Venogram negative for DVT. ASSESSMENT AND PLAN: Mr. Ramirez is a 72-year-old man with history of alcohol abuse, history of coronary artery disease, possible heart attacks in the past, but preserved overall left ventricular systolic function. He is presenting with an atrial arrhythmia with atrial flutter with rapid ventricular rates, which has improved with diltiazem and amiodarone administration, currently back in sinus rhythm. He still has issues with cellulitis and resolving delirium tremens. PLAN: This gentleman'sprognosis with atrial arrhtyhmia is very concerning. Rate control will be a challenge, antiarrhtyhmic regimen and anticoagulation likely a difficult proposition on him, in view of his alcohol abuse and liver disease. Although he respponded well to initial amiodaroen therapy, it is difficult to recommend this agent fdc for hi9m in view of his liver disease. It is reasonable to consider remission of the atrial flutter circuit to minimize his atrial arrhythmia burden. Hence is back in sinus rhythm. After optimization of his lower extremity cellulitis and ETOH withdrawal issues, this could be attempted prior to discharge. I am expecting this to be happening by Wednesday. We will make arrangements for that time. We will follow with you in the meantime. Thank you again for allowing me to participate in the care of this patient. DEBBY
[2017-08-27] MEDS: Clindamycin 150 MG CAP PO SCH ×4 (01:04→17:55)
[2017-08-27] MEDS: Lorazepam 2 MG/ML VIAL SLOW IVP PRN ×2 (03:48→09:03)
[2017-08-27 05:43] LABS: ALT (SGPT) 159 U/L (8-55); AST (SGOT) 167 U/L (5-34); Albumin 2.7 g/dL (3.4-4.8); Alkaline Phosphatase 56 U/L (40-150); Anion Gap 11 mmol/L (10-20); BUN (Urea Nitrogen) 11 mg/dL (8.4-25.7); Bilirubin, Total 0.8 mg/dL (0.2-1.2); CK (CPK) 1145 U/L (30-200); Calc. Creatinine Clearance 105 mL/min (70-130); Calcium 9.1 mg/dL (7.8-10.44); Carbon Dioxide 27 mmol/L (23-31); Chloride 100 mmol/L (98-107); Estimated GFR-MDRD Greater than 90; Globulin 2.7 g/dL (2.4-3.5); Glucose 96 mg/dL (83-110); Potassium 4.6 mmol/L (3.5-5.1); Protein, Total 5.4 g/dL (5.8-8.1); Sodium 133 mmol/L (136-145)
--- NOTE | 2017-08-27 08:12 | PDOC.FM ---
- Subjective Subjective: Doing well this morning. Oriented x1-2. He knows his name and that he is in a medical center but thinks it is Wednesday and 1979. I re-oriented him. He has no complaints and says his legs do not bother him. He denies any chest or abdominal pain. He continues to task for "[place] or water." - Objective MAR Reviewed: Yes Vital Signs & Weight: Vital Signs (12 hours) Temp Pulse Resp BP BP Pulse Ox 08/27/17 06:40 89 16 08/27/17 03:47 134/69 08/27/17 03:45 98.3 F 88 16 134/69 95 08/27/17 00:25 98 20 95 08/27/17 00:01 145/70 H 08/26/17 23:22 98.2 F 91 20 145/70 H 94 L Weight Admit Weight 83.007 kg Weight 85.774 kg Most Recent Monitor Data Heart Rate from ECG 85 NIBP 133/75 NIBP BP-Mean 101 Respiration from ECG 19 SpO2 96 I&O: 08/26/17 08/27/17 08/28/17 06:59 06:59 06:59 Intake Total 2849 1315.9 Output Total 3875 2750 Balance -2703 -2848.1 Result Diagrams: 08/19/17 02:43 08/27/17 04:37 <Stephanie Mcmahon - Last Filed: 08/27/17 10:41> - Objective Vital Signs & Weight: Vital Signs (12 hours) Temp Pulse Resp BP BP Pulse Ox 08/27/17 07:40 154/79 H 08/27/17 07:10 98.8 F 08/27/17 07:07 92 16 154/79 H 93 L 08/27/17 06:40 89 16 08/27/17 03:47 134/69 08/27/17 03:45 98.3 F 88 16 134/69 95 08/27/17 00:25 98 20 95 08/27/17 00:01 145/70 H Weight Admit Weight 83.007 kg Weight 85.774 kg Most Recent Monitor Data Heart Rate from ECG 85 NIBP 133/75 NIBP BP-Mean 101 Respiration from ECG 19 SpO2 96 I&O: 08/26/17 08/27/17 08/28/17 06:59 06:59 06:59 Intake Total 2849 1315.9 Output Total 3875 2750 Balance -2836 -6635.1 Result Diagrams: 08/19/17 02:43 08/27/17 04:37 <Joe Byrne - Last Filed: 08/27/17 11:36> Phys Exam - Physical Examination Constitutional: NAD HEENT: moist MMs Neck: supple Respiratory: no wheezing, clear to auscultation bilateral Cardiovascular: RRR, no significant murmur Gastrointestinal: soft, non-tender, no distention, positive bowel sounds Musculoskeletal: pulses present, edema present 1-2+ edema to mid thigh Neurological: non-focal, normal sensation, moves all 4 limbs Psychiatric: normal affect Deviation from normal: oriented x1-2 Deviation from normal: erythema of R lemus, decreasing, erthema in popliteal fossa <Stephanie Mcmahon - Last Filed: 08/27/17 10:41> Dx/Plan (1) THOR (acute kidney injury) Code(s): N17.9 - ACUTE KIDNEY FAILURE, UNSPECIFIED Status: Acute (2) Delirium tremens Code(s): F10.231 - ALCOHOL DEPENDENCE WITH WITHDRAWAL DELIRIUM Status: Acute (3) Rhabdomyolysis Code(s): M62.82 - RHABDOMYOLYSIS Status: Acute (4) Alcohol withdrawal Code(s): F10.239 - ALCOHOL DEPENDENCE WITH WITHDRAWAL, UNSPECIFIED Status: Chronic (5) Hypokalemia Code(s): E87.6 - HYPOKALEMIA Status: Acute (6) Alcoholic hepatitis Code(s): K70.10 - ALCOHOLIC HEPATITIS WITHOUT ASCITES Status: Chronic (7) Cellulitis Code(s): L03.90 - CELLULITIS, UNSPECIFIED Status: Acute (8) Confusion and disorientation Code(s): F99 - MENTAL DISORDER, NOT OTHERWISE SPECIFIED Status: Acute - Plan Plan: 1. Severe ETOH withdrawal and Delirium Tremens, resolved? - > 1 week without alcohol - Remains oriented x1 - Can hold conversation but is often not logical with responses - Continue librium, recommend slow taper - Ativan PRN - Continue thiamine, folic acid, multivitamin, Mg and Calcium - ASE protocol, stressed importance of reorientation to family and nursing 2. Confusion and disorientation - Per family, worsening over the last 12 months with superimposed alcohol abuse - MMSE 12 on 08/24 - No cogwheel rigidity but resting tremor RUE > LUE with thumb twitching - From discussion with daughter it sounds like this is approaching patient's baseline - Appreciate Dr. Pham's assistance with determining likely etiology of disorientation at this point and recommendations - Will look for placement upon discharge as patient is not safe to be at home alone - Possible underlying dementia 3. A fib/a flutter - Appreciate Dr. Seaman' assistance - On amiodarone drip - Continue metoprolol - Echo dCHF with EF 60-65% - Will await cardiology/EP recs - Likely EP mgmt/ablation Wednesday 08/30 4. Rhabdomyolysis - CK downtrending - Continue PO hydration and strict I/O monitoring - Flores D/C'd 08/24 5. Fatty liver - Dietary modifications 6. Deconditioning - Unclear what baseline is - Per daughter, strong family history of Alzheimer's and other types of dementia - Continue PT - Will need placement, it is not safe for him to be at home alone 7. Hypokalemia, improving - Continue repletion 8. Transaminitis - Downtrending - Hep B, C, RPR and HIV neg - 08/06 acute alcoholic hepatitis - Continue to monitor 9. RLE cellulitis - Venogram neg for DVT BL - Continue Clinda (08/24) - Nontender, afebrile, no elevated WBC - Demarcated 08/25, will continue to monitor for worsening - If no improvement or worsening, likely related to venous stasis and will d/c abx 10. Blistering on BLE - Appreciate wound care assistance - Present on admission but increased erythema, no noted spread to new areas/ extension PPX: Lovenox and famotidine Dispo: Possible d/c early-mid next week pending cardiology/EP mgmt and placement <Stephanie Mcmahon - Last Filed: 08/27/17 10:41> Attending Addendum - Attending Addendum Date/Time: 08/27/17 1132 I personally evaluated the patient and discussed the management with Dr. Mcmahon I agree with the History, Examination, Assessment and Plan documented above with any addition or exceptions noted below. LLE looking better Patient continue to diuresis, For further Evaluation with tentatively planned EPS Wednesday , stable in Sinus rhythm with amiodarone. Appreciate Neurology rec continue thiamine looking into suitable manager intermediate placement Daughter visiting from [place] but not available this AM <Joe Byrne - Last Filed: 08/27/17 11:36>
[2017-08-27] MEDS: Calcium Carbonate 500 MG ChewTAB PO SCH (09:05)
[2017-08-27] MEDS: Enoxaparin Sodium 40 MG/0.4 ML SYRINGE SC SCH (09:05)
[2017-08-27] MEDS: Famotidine 20 MG TAB PO SCH ×2 (09:06→22:18)
[2017-08-27] MEDS: Potassium Chloride 20 MEQ TAB PO SCH ×2 (09:06→17:55)
[2017-08-27] MEDS: Multivitamin W/ Minerals 1 TAB PO SCH (09:06)
[2017-08-27] MEDS: Magnesium Oxide 400 MG TAB PO SCH (09:06)
[2017-08-27] MEDS: Folic Acid 1 MG TAB PO SCH (09:06)
--- NOTE | 2017-08-27 12:06 | PRG ---
DATE OF SERVICE: 08/27/2017 SUBJECTIVE: Mr. Ramirez seems to be doing fair today, although nurse reports some anxiety and tremulo usness and also he still wanted to consume alcohol. No further palpitations or chest pains noted. OBJECTIVE: VITAL SIGNS: Blood pressure is 134/69, heart rate 89, respiration 16, temperature 98.3 degrees Fahre nheit. GENERAL: He is alert and oriented man, in no apparent distress. NECK: Supple. Jugular veins not distended. CHEST: Coarse without crackles. CARDIOVASCULAR: Heart sounds are regular to rate and rhythm. No murmur or gallop. ABDOMEN: Benign. Bowel sounds are positive. EXTREMITIES: Lower extremities with 2+ edema, more prominent on the right side with improving erythe ma. LABORATORY DATA: Sodium 132, potassium 4.6, BUN 4.6, creatinine 0.78. Lower extremity venogram from 08/24/2017 shows no DVT. DATABASE: Telemetry strips reveal continued sinus rhythm. ASSESSMENT AND PLAN: Mr. Ramirez is a 72-year-old male with history of ETOH abuse who was admitted wi th mental status changes, alcoholic encephalopathy and fall, unable to get up likely related to rhabd omyolysis. He also was noted to be in atrial flutter with rapid rates, eventually converted to sinus rhythm with IV amiodarone, but it is still ongoing. His echo reveals normal LVEF. He is anticoagul ated with Lovenox. He still has DTs and some lower extremity cellulitis issues. PLAN: 1. Regarding his atrial flutter, I think the best strategy would be cavotricuspid isthmus ablation. This gentleman is a poor candidate for long-term oral anticoagulation or antiarrhythmic medication since likely alcoholic liver injuries. I again talked to him about this procedure and we are plannin g to perform that on Wednesday if his medical condition improves. 2. History of ETOH abuse with DT on sedatives. 3. Elevated liver function tests, improving trend. We will stop IV amiodarone, make it p.r.n. Put him on a low dose p.o. amiodarone in the meantime he might stop eventually.
--- NOTE | 2017-08-27 15:23 | PDOC.CTH ---
<Vicike Triplett - Last Filed: 08/27/17 15:35> Cardiology Progress Note - Subjective the pt seen and examined. No overnight events. Still confused and a sitter at bedside. - Objective Vital Signs Temp Pulse Resp BP BP Pulse Ox 08/27/17 14:32 92 16 08/27/17 11:35 136/77 08/27/17 11:32 98.6 F 89 18 136/77 08/27/17 07:43 98.6 F 89 18 93 L 08/27/17 07:40 154/79 H 08/27/17 07:10 98.8 F 08/27/17 07:07 92 16 154/79 H 93 L 08/27/17 06:40 89 16 08/27/17 03:47 134/69 08/27/17 03:45 98.3 F 88 16 134/69 95 Admit Weight 183 lb Weight 189 lb 1.6 oz 08/26/17 08/27/17 08/28/17 06:59 06:59 06:59 Intake Total 2849 1315.9 Output Total 3875 2750 Balance -1026 -1434.1 - Physical Examination General/Neuro: other: (confused to place and situation) Neck: carotid US brisk Lungs: CTA Heart: RRR Abdomen: soft Extremities: other: (3+ pittinb BLE edemas; erythma to RLE) - Labs Result Diagrams: 08/19/17 02:43 08/27/17 04:37 Troponin/CKMB CK-MB (CK-2) 5.1 ng/mL (0-6.6) 08/25/17 13:35 Troponin I 0.042 ng/mL (< 0.028) H 08/25/17 13:35 - Assessment/Plan 1. Afib/Aflutter with RVR - remains in SR with Amiodarone 200mg PO BID, which will taper down due to high Liver enzymes; On Lovenox qd; cont. monitor 2. Rhabdomyolysis - the pt was found down; CK has been improving. 3. RLE cellulitis - Venogram neg for DVT; managed by PCP 4. ETOH abuse - sitter at bedside; AST and ALT improving; 5. Hyponatremia - cont. monitor 6. Hx of falls 7. Alzheimer disease MAR reivewed * Plan for Cavotricuspid Isthmus ablation on 08/30/17 Review of Systems - Review of Systems Constitutional: reports: see HPI EENTM: reports: see HPI Respiratory: reports: see HPI Cardiac (ROS): reports: see HPI ABD/GI: reports: see HPI : reports: see HPI Musculoskeletal: reports: see HPI <Sara Seaman - Last Filed: 08/27/17 18:49> Cardiology Progress Note - Objective Vital Signs Temp Pulse Resp BP BP Pulse Ox 08/27/17 16:00 153/84 H 08/27/17 15:55 98.3 F 88 18 153/84 H 94 L 08/27/17 14:32 92 16 08/27/17 11:35 136/77 08/27/17 11:32 98.6 F 89 18 136/77 08/27/17 07:43 98.6 F 89 18 93 L 08/27/17 07:40 154/79 H 08/27/17 07:10 98.8 F 08/27/17 07:07 92 16 154/79 H 93 L Admit Weight 183 lb Weight 189 lb 1.6 oz 08/26/17 08/27/17 08/28/17 06:59 06:59 06:59 Intake Total 2849 1315.9 Output Total 3875 2750 Balance -1026 -7784.1 - Labs Result Diagrams: 08/19/17 02:43 08/27/17 04:37 Troponin/CKMB CK-MB (CK-2) 5.1 ng/mL (0-6.6) 08/25/17 13:35 Troponin I 0.042 ng/mL (< 0.028) H 08/25/17 13:35 - Assessment/Plan Pt. was seen and eval. by me. i agree with the A/p by the LGSW. He is still confused. The plan is for flutter ablation next week. RRR, chest clear.
[2017-08-27] MEDS: Amiodarone 200 MG TAB PO SCH (22:17)
[2017-08-28] MEDS: Clindamycin 150 MG CAP PO SCH ×4 (00:30→17:13)
--- NOTE | 2017-08-28 07:52 | PDOC.FM ---
- Subjective Subjective: KAYLA overnight, VSS, afebrile. No concerns this AM. - Objective Vital Signs & Weight: Vital Signs (12 hours) Temp Pulse Resp BP BP BP Pulse Ox 08/28/17 07:10 98.3 F 101 H 18 135/75 92 L 08/28/17 07:01 93 L 08/28/17 06:50 100 16 08/28/17 04:00 97.9 F 94 17 128/75 128/75 92 L 08/27/17 20:00 98.2 F 88 18 125/64 158/87 H 93 L Weight Admit Weight 83.007 kg Weight 83.915 kg Most Recent Monitor Data Heart Rate from ECG 85 NIBP 133/75 NIBP BP-Mean 101 Respiration from ECG 19 SpO2 96 I&O: 08/27/17 08/28/17 08/29/17 06:59 06:59 06:59 Intake Total 1315.9 940 Output Total 2750 2475 Balance -1434.1 1534 Result Diagrams: 08/19/17 02:43 08/27/17 04:37 <Jesus Manuel Plaza - Last Filed: 08/28/17 07:50> - Objective Vital Signs & Weight: Vital Signs (12 hours) Temp Pulse Resp BP BP Pulse Ox 08/28/17 08:00 135/75 08/28/17 07:15 98.3 F 101 H 18 92 L 08/28/17 07:10 98.3 F 101 H 18 135/75 92 L 08/28/17 07:01 93 L 08/28/17 06:50 100 16 08/28/17 04:00 97.9 F 94 17 128/75 128/75 92 L Weight Admit Weight 83.007 kg Weight 83.915 kg Most Recent Monitor Data Heart Rate from ECG 85 NIBP 133/75 NIBP BP-Mean 101 Respiration from ECG 19 SpO2 96 I&O: 08/27/17 08/28/17 08/29/17 06:59 06:59 06:59 Intake Total 1315.9 940 Output Total 2750 2475 Balance -1434.1 -1535 Result Diagrams: 08/19/17 02:43 08/27/17 04:37 <Beti Layton - Last Filed: 08/28/17 11:29> Phys Exam - Physical Examination Constitutional: NAD HEENT: oral pharynx no lesions Neck: no nodes Respiratory: no wheezing, clear to auscultation bilateral Cardiovascular: RRR, no significant murmur Gastrointestinal: soft, non-tender Musculoskeletal: pulses present Neurological: moves all 4 limbs pill rolling tremor right UE Deviation from normal: A&O x 2 (person and time) Deviation from normal: improving R-LE erythema <Jesus Manuel Plaza - Last Filed: 08/28/17 07:50> Dx/Plan (1) Atrial fibrillation with RVR Code(s): I48.91 - UNSPECIFIED ATRIAL FIBRILLATION Status: Acute Plan: EP and Cards on board, appreciate recs NSR overnight on tele Plans for ablation Wednesday Cont. w/ PRN amio per EP/Cards (2) Cellulitis Code(s): L03.90 - CELLULITIS, UNSPECIFIED Status: Acute QualifierTitle: Site of cellulitis of extremity: lower extremity Laterality: right Plan: Improving on clinda Cont. w/ abx (3) Confusion and disorientation Code(s): F99 - MENTAL DISORDER, NOT OTHERWISE SPECIFIED Status: Acute Plan: Appears to be at baseline from prior notes, however was able to tell me the date today which he normally struggles with Cont. w/ frequent reorientation and thiamine supplementation (4) Rhabdomyolysis Code(s): M62.82 - RHABDOMYOLYSIS Status: Acute Plan: Downtrending CK to 1145 No need for further trending of CK Will cont. to monitor renal function w/ BMP's (5) Delirium tremens Code(s): F10.231 - ALCOHOL DEPENDENCE WITH WITHDRAWAL DELIRIUM Status: Resolved Plan: Resolved Cont. w/ librium taper <Jesus Manuel Plaza - Last Filed: 08/28/17 07:50> Attending Addendum - Attending Addendum Date/Time: 08/28/17 1124 I personally evaluated the patient and discussed the management with Dr. Plaza. I agree with the History, Examination, Assessment and Plan documented above with any addition or exceptions noted below. The patient is at his baseline mental status. Will remain on telemetry. Likely ablation on Wednesday. <Beti Layton - Last Filed: 08/28/17 11:29>
[2017-08-28] MEDS: Calcium Carbonate 500 MG ChewTAB PO SCH (09:47)
[2017-08-28] MEDS: Multivitamin W/ Minerals 1 TAB PO SCH (09:47)
[2017-08-28] MEDS: Potassium Chloride 20 MEQ TAB PO SCH ×2 (09:48→17:12)
[2017-08-28] MEDS: Amiodarone 200 MG TAB PO SCH ×2 (09:48→21:52)
[2017-08-28] MEDS: Enoxaparin Sodium 40 MG/0.4 ML SYRINGE SC SCH (09:49)
[2017-08-28] MEDS: Folic Acid 1 MG TAB PO SCH (09:49)
[2017-08-28] MEDS: Magnesium Oxide 400 MG TAB PO SCH (09:49)
[2017-08-28] MEDS: Famotidine 20 MG TAB PO SCH ×2 (09:52→21:52)
[2017-08-28] MEDS: Lorazepam 2 MG/ML VIAL SLOW IVP PRN (12:53)
[2017-08-28] MEDS ORDERED: Tamsulosin HCl 0.4 MG CAP PO SCH (13:00)
--- NOTE | 2017-08-28 13:20 | PRG ---
ELECTROPHYSIOLOGY FOLLOWUP NOTE DATE OF SERVICE: 08/28/2017 SUBJECTIVE: Mr. Ramirez seems to be doing well today, minimal agitation noted. Rhythm remains stable . Family is at the bedside. OBJECTIVE DATA: VITAL SIGNS: Blood pressure is 135/75, heart rate 100, respirations 18 and temperature 98.3 degrees Fahrenheit. GENERAL: This is an alert and oriented man in no apparent distress. NECK: Supple. Jugular veins not distended. CHEST: Coarse without crackles. CARDIOVASCULAR: Heart sounds are regular to rate and rhythm. No murmur or gallop. ABDOMEN: Benign. Bowel sounds positive. EXTREMITIES: Lower extremities without edema, clubbing or cyanosis. DATA BASE: Telemetry strips reveal sinus rhythm, noted candidate for atrial arrhythmia. The lower e xtremity cellulitis seems to be resolving, minimal edema on the right side is improving as well. ASSESSMENT AND PLAN: Mr. Ramirez is a 72-year-old man with history of EtOH abuse who presented with m ental status changes and related falling down and unable to get out. He was found to be in atrial fl utter with rapid rates, which was eventually controlled with amiodarone. Currently, he is back in si nus rhythm, but this is with the help of IV amiodarone. He had elevated liver function tests, which now seems to be improving some. My plan is; 1. Regarding his atrial flutter, I think it is more reasonable to proceed with cavotricuspid isthmus ablation avoiding his atrial flutter with rapid rates. Risks and benefits were detailed to the joshua ent. 2. Cellulitis, now resolving. Continue clindamycin. 3. Anticoagulation. Lovenox, currently low dose. 4. EtOH withdrawal, delirium tremens improving mental status. 5. Preserved LV function. No significant valvular heart disease on echo this admission. Plan to proceed with cavotricuspid isthmus ablation on Wednesday. Risks and benefits were discussed wit h the family including his daughter who is a nurse. Thank you again for allowing me to participate in the care of this patient.
[2017-08-29] MEDS: Lorazepam 2 MG/ML VIAL SLOW IVP PRN ×2 (00:41→13:27)
[2017-08-29] MEDS: Clindamycin 150 MG CAP PO SCH ×5 (00:41→22:17)
[2017-08-29 07:36] LABS: ALT (SGPT) 139 U/L (8-55); AST (SGOT) 95 U/L (5-34); Albumin 3.3 g/dL (3.4-4.8); Alkaline Phosphatase 63 U/L (40-150); Anion Gap 16 mmol/L (10-20); BUN (Urea Nitrogen) 14 mg/dL (8.4-25.7); Bilirubin, Total 0.9 mg/dL (0.2-1.2); Calc. Creatinine Clearance 73 mL/min (70-130); Calcium 9.8 mg/dL (7.8-10.44); Carbon Dioxide 25 mmol/L (23-31); Chloride 98 mmol/L (98-107); Estimated GFR-MDRD 73; Globulin 3.1 g/dL (2.4-3.5); Glucose 102 mg/dL (83-110); Potassium 4.8 mmol/L (3.5-5.1); Protein, Total 6.4 g/dL (5.8-8.1); Sodium 134 mmol/L (136-145)
--- NOTE | 2017-08-29 07:48 | PDOC.FM ---
- Subjective Subjective: KAYLA overnight, VSS. Some sinus tach on tele overnight. No new complaints this AM. Scheduled for ablation tomorrow per EP. - Objective MAR Reviewed: Yes Vital Signs & Weight: Vital Signs (12 hours) Temp Pulse Resp BP BP Pulse Ox 08/29/17 07:05 96 12 08/29/17 04:45 98.0 F 101 H 22 H 132/74 95 08/29/17 04:00 132/74 08/29/17 03:06 92 L 08/29/17 01:04 12 08/28/17 20:45 97.7 F 101 H 18 125/71 94 L Weight Admit Weight 83.007 kg Weight 79.333 kg Most Recent Monitor Data Heart Rate from ECG 85 NIBP 133/75 NIBP BP-Mean 101 Respiration from ECG 19 SpO2 96 I&O: 08/28/17 08/29/17 08/30/17 06:59 06:59 06:59 Intake Total 940 1200 Output Total 7409 2839 Balance -2684 -796 Result Diagrams: 08/19/17 02:43 08/29/17 06:59 <Jesus Manuel Plaza - Last Filed: 08/29/17 07:46> - Objective Vital Signs & Weight: Vital Signs (12 hours) Temp Pulse Resp BP BP Pulse Ox 08/29/17 08:00 98.4 F 107 H 16 117/59 L 08/29/17 07:05 96 12 08/29/17 04:45 98.0 F 101 H 22 H 132/74 95 08/29/17 04:00 132/74 08/29/17 03:06 92 L Weight Admit Weight 83.007 kg Weight 79.333 kg Most Recent Monitor Data Heart Rate from ECG 85 NIBP 133/75 NIBP BP-Mean 101 Respiration from ECG 19 SpO2 96 I&O: 08/28/17 08/29/17 08/30/17 06:59 06:59 06:59 Intake Total 940 1200 Output Total 0330 6765 Balance -6785 -062 Result Diagrams: 08/19/17 02:43 08/29/17 06:59 <Beti Layton - Last Filed: 08/29/17 14:15> Phys Exam - Physical Examination Constitutional: NAD Respiratory: no wheezing, no rales Cardiovascular: RRR, no significant murmur Gastrointestinal: soft, non-tender Musculoskeletal: no edema, pulses present Neurological: moves all 4 limbs Psychiatric: normal affect Deviation from normal: A&Ox2 Deviation from normal: erythema improving <Jesus Manuel Plaza - Last Filed: 08/29/17 07:46> Dx/Plan (1) Atrial fibrillation with RVR Code(s): I48.91 - UNSPECIFIED ATRIAL FIBRILLATION Status: Acute Plan: EP and Cards on board, appreciate recs sinus overnight on tele Plans for ablation Wednesday Cont. w/ low dose amio per EP/Cards (2) Cellulitis Code(s): L03.90 - CELLULITIS, UNSPECIFIED Status: Acute QualifierTitle: Site of cellulitis of extremity: lower extremity Laterality: right Plan: Improving on clinda Cont. w/ abx (3) Confusion and disorientation Code(s): F99 - MENTAL DISORDER, NOT OTHERWISE SPECIFIED Status: Acute Plan: Appears to be at baseline from prior notes, however was able to tell me the date today which he normally struggles with Cont. w/ frequent reorientation and thiamine supplementation (4) Rhabdomyolysis Code(s): M62.82 - RHABDOMYOLYSIS Status: Acute Plan: Downtrending CK to 1145 Will cont. to monitor renal function w/ BMP's (5) Delirium tremens Code(s): F10.231 - ALCOHOL DEPENDENCE WITH WITHDRAWAL DELIRIUM Status: Resolved Plan: Resolved Cont. w/ librium taper <Jesus Manuel Plaza - Last Filed: 08/29/17 07:46> Attending Addendum - Attending Addendum Date/Time: 08/29/17 1174 I personally evaluated the patient and discussed the management with Dr. Plaza. I agree with the History, Examination, Assessment and Plan documented above with any addition or exceptions noted below. Patient agitated at night but has a sitter. He will have an ablation with Dr. Meyer tomorrow. <Beti Layton - Last Filed: 08/29/17 14:15>
[2017-08-29] MEDS: Amiodarone 200 MG TAB PO SCH ×2 (08:32→22:06)
[2017-08-29] MEDS: Tamsulosin HCl 0.4 MG CAP PO SCH (08:33)
[2017-08-29] MEDS: Folic Acid 1 MG TAB PO SCH (08:34)
[2017-08-29] MEDS: Calcium Carbonate 500 MG ChewTAB PO SCH (08:34)
[2017-08-29] MEDS: Magnesium Oxide 400 MG TAB PO SCH (08:34)
[2017-08-29] MEDS: Enoxaparin Sodium 40 MG/0.4 ML SYRINGE SC SCH (08:34)
[2017-08-29] MEDS: Famotidine 20 MG TAB PO SCH ×2 (08:34→22:06)
[2017-08-29] MEDS: Potassium Chloride 20 MEQ TAB PO SCH ×2 (08:34→16:03)
[2017-08-29] MEDS: Multivitamin W/ Minerals 1 TAB PO SCH (08:34)
[2017-08-30] MEDS: Lorazepam 2 MG/ML VIAL SLOW IVP PRN ×3 (01:49→14:03)
[2017-08-30] MEDS: Clindamycin 150 MG CAP PO SCH ×4 (05:02→23:37)
[2017-08-30 05:27] LABS: ALT (SGPT) 123 U/L (8-55); AST (SGOT) 76 U/L (5-34); Albumin 3.2 g/dL (3.4-4.8); Alkaline Phosphatase 59 U/L (40-150); Anion Gap 13 mmol/L (10-20); BUN (Urea Nitrogen) 13 mg/dL (8.4-25.7); Bilirubin, Total 0.9 mg/dL (0.2-1.2); Calc. Creatinine Clearance 77 mL/min (70-130); Calcium 9.6 mg/dL (7.8-10.44); Carbon Dioxide 26 mmol/L (23-31); Chloride 99 mmol/L (98-107); Estimated GFR-MDRD 79; Globulin 2.9 g/dL (2.4-3.5); Glucose 96 mg/dL (83-110); Potassium 4.4 mmol/L (3.5-5.1); Protein, Total 6.1 g/dL (5.8-8.1); Sodium 134 mmol/L (136-145)
--- NOTE | 2017-08-30 06:39 | PDOC.FM ---
- Subjective Subjective: Pt seen at bedside in NAD. KAYLA overnight, sitter in room states pt has been sleeping comfortably. No complaints this AM. Reports that daughter called and does not wish to proceed with ablation this AM. - Objective MAR Reviewed: Yes Vital Signs & Weight: Vital Signs (12 hours) Temp Pulse Resp BP Pulse Ox 08/30/17 04:59 97.9 F 103 H 20 138/87 97 08/29/17 20:45 97.6 F 99 20 125/75 98 08/29/17 19:01 97 12 Weight Admit Weight 83.007 kg Weight 77.791 kg Most Recent Monitor Data Heart Rate from ECG 85 NIBP 133/75 NIBP BP-Mean 101 Respiration from ECG 19 SpO2 96 I&O: 08/28/17 08/29/17 08/30/17 06:59 06:59 06:59 Intake Total 940 1200 1020 Output Total 2475 1845 1000 Balance -0727 -017 20 Result Diagrams: 08/19/17 02:43 08/30/17 04:14 EKG Reviewed by me: Yes (SR overnight rate 90s-low 100) <Atul Gauthier - Last Filed: 08/30/17 08:52> - Objective Vital Signs & Weight: Vital Signs (12 hours) Temp Pulse Resp BP Pulse Ox 08/30/17 08:00 98.0 F 103 H 18 128/78 97 08/30/17 07:11 106 H 16 95 08/30/17 04:59 97.9 F 103 H 20 138/87 97 Weight Admit Weight 83 kg Weight 77.791 kg Most Recent Monitor Data Heart Rate from ECG 85 NIBP 133/75 NIBP BP-Mean 101 Respiration from ECG 19 SpO2 96 I&O: 08/29/17 08/30/17 08/31/17 06:59 06:59 06:59 Intake Total 1200 1020 Output Total 1845 1000 Balance -645 20 Result Diagrams: 08/19/17 02:43 08/30/17 04:14 <Nat Cline - Last Filed: 08/30/17 11:31> Phys Exam - Physical Examination Constitutional: NAD Respiratory: no wheezing, no rales Cardiovascular: RRR, no significant murmur Gastrointestinal: soft, non-tender Neurological: moves all 4 limbs Psychiatric: normal affect Deviation from normal: A&O x2 Skin: cap refill <2 seconds Deviation from normal: erythema improving <Atul Gauthier - Last Filed: 08/30/17 08:52> Dx/Plan (1) Atrial fibrillation with RVR Code(s): I48.91 - UNSPECIFIED ATRIAL FIBRILLATION Status: Acute Plan: -EP and cardiology on board, recs greatly appreciated -pt initially planned for ablation this AM, however, reports that daughter called and decided against procedure -pt currently on PO amiodarone and has been NSR last 24 hrs with HR 90s, continue to monitor on telemetry -will discuss with specialists on case regarding plan and disposition (2) Cellulitis Code(s): L03.90 - CELLULITIS, UNSPECIFIED Status: Acute QualifierTitle: Site of cellulitis of extremity: lower extremity Laterality: right Plan: -improving with Clindamycin -will complete 7 day course on 08/31 (3) Alcoholic hepatitis Code(s): K70.10 - ALCOHOLIC HEPATITIS WITHOUT ASCITES Status: Chronic QualifierTitle: Ascites presence: without ascites Qualified Code(s): K70.10 - Alcoholic hepatitis without ascites Plan: -elevated LFTs improving, continue to monitor -continue with Librium taper -pt also had rhabdomyolysis which is improving, recheck CK which has been downward trending (4) Confusion and disorientation Code(s): F99 - MENTAL DISORDER, NOT OTHERWISE SPECIFIED Status: Acute - Plan Plan: Disposition: Pt stable and doing well. Plan will be coordinated with family and specialists as daughter reportedly decided against ablation procedure. Will touch base with CM regrading placement if no procedures to be done while hospitalized. Continue with librium taper and continue to monitor closely. <Atul Gauthier - Last Filed: 08/30/17 08:52> Attending Addendum - Attending Addendum Date/Time: 08/30/17 3119 I personally evaluated the patient and discussed the management with Dr. Gauthier. I agree with the History, Examination, Assessment and Plan documented above with any addition or exceptions noted below. Afib/flutter- in sinus tach on amidarone. Daughter declined ablation with EP. Discussed with Dr. Meyer and he recommends to d/c amiodarone once completed librium taper. DTs-resolved. Now will complete librium taper. Deconditioning Dementia -Will need skilled nursing placement. Appreciate CM recs. <Nat Cline - Last Filed: 08/30/17 11:31>
[2017-08-30] MEDS: Potassium Chloride 20 MEQ TAB PO SCH ×2 (09:47→19:09)
[2017-08-30] MEDS: Famotidine 20 MG TAB PO SCH ×2 (09:47→23:37)
[2017-08-30] MEDS: Magnesium Oxide 400 MG TAB PO SCH (09:47)
[2017-08-30] MEDS: Multivitamin W/ Minerals 1 TAB PO SCH (09:47)
[2017-08-30] MEDS: Amiodarone 200 MG TAB PO SCH ×2 (09:47→23:37)
[2017-08-30] MEDS: Folic Acid 1 MG TAB PO SCH (09:48)
[2017-08-30] MEDS: Tamsulosin HCl 0.4 MG CAP PO SCH (09:48)
[2017-08-30] MEDS: Calcium Carbonate 500 MG ChewTAB PO SCH (09:48)
[2017-08-30] MEDS: Enoxaparin Sodium 40 MG/0.4 ML SYRINGE SC SCH (09:48)
--- NOTE | 2017-08-30 11:36 | PRG ---
DATE OF SERVICE: 08/30/2017 ELECTROPHYSIOLOGY FOLLOWUP I am seeing Mr. Ramirez at our [facility] as a followup. SUBJECTIVE: Mr. Ramirez voiced no new symptoms. On the weekend his family decided against the [facility] [place] procedure. OBJECTIVE DATA: VITAL SIGNS: Blood pressure is 128/78, heart rate 103, respirations 18, temperature 98 degrees Fahre nheit. GENERAL: This is an alert and conversive patient, although with significant hyperacusis, in no appar ent distress. CHEST: Clear. NECK: Supple, no jugular venous distention. CARDIOVASCULAR: Heart sounds are regular to rate and rhythm. No murmur or gallop. ABDOMEN: Benign. Bowel sounds positive. EXTREMITIES: Lower extremities without edema, clubbing or cyanosis. DATABASE: The telemetry continue to reveal sinus rhythm, sinus tachycardia. ASSESSMENT AND PLAN: Mr. Ramirez is a 72-year-old man with history of atrial flutter with rapid rates on presentation. He converted back with amiodarone to sinus rhythm and maintains it on p.o. amiodar one currently. He, although initially had elevated liver enzymes, now his AST and ALT are trending d own, it is 76 and 123 today. His renal function is stable. We discussed the future treatment options with his family on the weekend. At this point, they are ag ainst an ablation procedure. For now, he is stable on amiodarone which though I would only use for t ransiently to cover his DT period to avoid recurrence of atrial flutter. Long-term I think he is hig h risk to be on amiodarone. This should be likely stopped after the acute phase of atrial fibrillati on is over. Anticoagulation also is difficult proposition for a defibrillated man with heavy alcohol abuse and li gillian alcoholic hepatitis. I will be happy to see him back as an outpatient if felt necessary.
--- NOTE | 2017-08-30 18:00 | PDOC.EVN ---
Event Note - Event Note Event Note: Pt's daughter Kahty called nurse to discuss some questions after being contacted by case management. Daughter called back by myself and discussed current plan of care. 30 minutes spent discussing details of case. Daughter informed that procedure was cancelled this AM due to her and family wishes. At this time, EP rec is to continue amio PO until pt is out of acute episode of withdrawal symptoms. Informed that we will continue librium taper and likely d/c amio at similar time. Daughter concerned about dosing of medications and potential of continuing/tapering meds if pt is out of hospital. Discussed that medications can be continued at facility and there are no plans to discharge patient home and we will not be stopping any medications abruptly. Daughter was concern that pt would end up at a facility where he would not be taken care of. Discussed plan is to send pt to a [place] [facility] facility where he can continually be monitored closely, have medications administered, and continue to work with physical therapy. Daughter had multiple questions regarding tapering of librium and possibly amio. Discussed specific dosing and taper plan. Discussed pt is on low dose amio at this time but that we can consider tapering. Pt has been stable on current medications over last few days with no clinical changes and has been NSR with no recurrence of arrhythmias. She did express frustration with current health status and c/o some poor communication in the past. At one point, she did threaten to fly back to [place] and that "I would be sorry" if things did not go as she wished. Daughter was thankful at end of call and appreciative of time spent and later apologized. She notes her younger sister who lives nearby will be touring the facilities tomorrow and likely have a decision within the next 1-2 days (Kathy currently lives in [place]). All questions answered and all concerns addressed.
[2017-08-31 05:51] LABS: ALT (SGPT) 100 U/L (8-55); AST (SGOT) 58 U/L (5-34); Albumin 3.2 g/dL (3.4-4.8); Alkaline Phosphatase 60 U/L (40-150); Anion Gap 12 mmol/L (10-20); BUN (Urea Nitrogen) 13 mg/dL (8.4-25.7); Bilirubin, Total 0.7 mg/dL (0.2-1.2); Calc. Creatinine Clearance 77 mL/min (70-130); Calcium 9.8 mg/dL (7.8-10.44); Carbon Dioxide 27 mmol/L (23-31); Chloride 99 mmol/L (98-107); Estimated GFR-MDRD 79; Globulin 2.9 g/dL (2.4-3.5); Glucose 90 mg/dL (83-110); Potassium 4.4 mmol/L (3.5-5.1); Protein, Total 6.1 g/dL (5.8-8.1); Sodium 134 mmol/L (136-145)
[2017-08-31] MEDS: Clindamycin 150 MG CAP PO SCH ×3 (06:33→19:21)
--- NOTE | 2017-08-31 06:50 | PDOC.FM ---
- Subjective Subjective: Pt seen at bedside in NAD. KAYLA overnight, no complaints this morning. - Objective MAR Reviewed: Yes Vital Signs & Weight: Vital Signs (12 hours) Temp Pulse Resp BP BP Pulse Ox 08/31/17 04:41 98.5 F 89 16 109/57 L 109/57 L 92 L 08/31/17 00:31 91 18 95 08/30/17 23:35 98.1 F 90 20 120/63 95 08/30/17 20:05 98.5 F 91 19 117/64 95 08/30/17 19:29 91 18 92 L Weight Admit Weight 83 kg Weight 78.335 kg Most Recent Monitor Data Heart Rate from ECG 85 NIBP 133/75 NIBP BP-Mean 101 Respiration from ECG 19 SpO2 96 I&O: 08/29/17 08/30/17 08/31/17 06:59 06:59 06:59 Intake Total 1200 1020 1440 Output Total 1845 1000 2300 Balance -645 20 -860 Result Diagrams: 08/19/17 02:43 08/31/17 04:26 <Atul Gauthier M - Last Filed: 08/31/17 09:08> - Objective Vital Signs & Weight: Vital Signs (12 hours) Temp Pulse Resp BP BP Pulse Ox 08/31/17 08:45 98.2 F 08/31/17 08:00 98.2 F 92 16 126/70 126/70 94 L 08/31/17 07:41 87 18 96 08/31/17 04:41 98.5 F 89 16 109/57 L 109/57 L 92 L Weight Admit Weight 83 kg Weight 78.335 kg Most Recent Monitor Data Heart Rate from ECG 85 NIBP 133/75 NIBP BP-Mean 101 Respiration from ECG 19 SpO2 96 I&O: 08/30/17 08/31/17 09/01/17 06:59 06:59 06:59 Intake Total 1020 1440 Output Total 1000 2300 Balance 20 -860 Result Diagrams: 08/19/17 02:43 08/31/17 04:26 <Nat Cline - Last Filed: 08/31/17 14:43> Phys Exam - Physical Examination Constitutional: NAD Respiratory: no wheezing, clear to auscultation bilateral Cardiovascular: RRR, no significant murmur Gastrointestinal: soft, non-tender Neurological: moves all 4 limbs Deviation from normal: A&Ox2 Skin: cap refill <2 seconds <Atul Gauthier - Last Filed: 08/31/17 09:08> Dx/Plan (1) Atrial fibrillation with RVR Code(s): I48.91 - UNSPECIFIED ATRIAL FIBRILLATION Status: Acute Plan: -EP and cardiology on board, recs greatly appreciated -pt initially planned for ablation this AM, however, reports that daughter called and decided against procedure -pt currently on PO amiodarone and has been NSR last 48 hrs with HR 90s, continue to monitor on telemetry -discussed case with specialists and plan is to discontinue amio at about time librium taper is discontinued -pt to be transferred to SNF for continued care, therapy, and med administration -pt not a candidate for fdc amio or other meds per EP (2) Cellulitis Code(s): L03.90 - CELLULITIS, UNSPECIFIED Status: Acute QualifierTitle: Site of cellulitis of extremity: lower extremity Laterality: right Plan: -improving with Clindamycin -will complete 7 day course on 08/31 (3) Alcoholic hepatitis Code(s): K70.10 - ALCOHOLIC HEPATITIS WITHOUT ASCITES Status: Chronic QualifierTitle: Ascites presence: without ascites Qualified Code(s): K70.10 - Alcoholic hepatitis without ascites Plan: -elevated LFTs improving, continue to monitor -continue with Librium taper -pt also had rhabdomyolysis which has resolved (4) Confusion and disorientation Code(s): F99 - MENTAL DISORDER, NOT OTHERWISE SPECIFIED Status: Acute - Plan Plan: Disposition: Pt stable. Discharge planning for placement at SNF vs other facility. Case management assistance greatly appreciated. <Atul Gauthier - Last Filed: 08/31/17 09:08> Attending Addendum - Attending Addendum Date/Time: 08/31/17 1020 I personally evaluated the patient and discussed the management with Dr. Gauthier I agree with the History, Examination, Assessment and Plan documented above with any addition or exceptions noted below. DTs- resolved Dementia- appears at baseline. Will need placement Afib/flutter- in NSR since on amiodarone. Family decided against ablation. Since patient will be in the hospital until placement arranged, will stop amiodarone as he is no longer in withdrawal. EtOh abuse- on librium taper. <Nat Cline - Last Filed: 08/31/17 14:43>
[2017-08-31] MEDS: Tamsulosin HCl 0.4 MG CAP PO SCH (10:19)
[2017-08-31] MEDS: Magnesium Oxide 400 MG TAB PO SCH (10:19)
[2017-08-31] MEDS: Multivitamin W/ Minerals 1 TAB PO SCH (10:19)
[2017-08-31] MEDS: Potassium Chloride 20 MEQ TAB PO SCH ×2 (10:19→19:20)
[2017-08-31] MEDS: Folic Acid 1 MG TAB PO SCH (10:19)
[2017-08-31] MEDS: Amiodarone 200 MG TAB PO SCH (10:20)
[2017-08-31] MEDS: Famotidine 20 MG TAB PO SCH ×2 (10:20→21:19)
[2017-08-31] MEDS: Calcium Carbonate 500 MG ChewTAB PO SCH (10:21)
[2017-08-31] MEDS: Enoxaparin Sodium 40 MG/0.4 ML SYRINGE SC SCH (10:30)
--- NOTE | 2017-08-31 16:32 | PRG ---
DATE OF SERVICE: 08/30/2017 I am seeing Mr. Ramirez at our [facility] as an electrophysiology follow up for arrhythmia management. SUBJECTIVE: Mr. Ramirez has not were seen new concerns over the night. His daughter was concerned with continued therapy of amiodarone, but is also concerned with stopping amiodarone with no recurrence of arrhythmias. This is discussed at length. OBJECTIVE DATA: VITAL SIGNS: Include temperature is 98.2 degrees Fahrenheit, pulse is 88, respirations 16, oxygen saturation 94% on room air, blood pressure 126/70. GENERAL: The patient is alert and conversive although with significant hyperacusis. He is in no apparent distress. HEENT: Neck is supple without jugular venous distention. EOMs are intact. Carotids are without bruit. PULMONARY: Breath sounds are coarse bilaterally without wheezes, crackles or rhonchi. CARDIOVASCULAR: Heart rate is irregularly irregular without significant murmur , rubs, or gallop. ABDOMEN: Exam is benign, no palpable masses with positive bowel sounds throughout. EXTREMITIES: Lower extremities are warm and dry to touch without clubbing, cyanosis or edema. LABORATORY DATA: Review of telemetry reveals sinus rhythm and sinus tachycardia. Chemistry from 08/31/2017 showed sodium 134, potassium 4.4, chloride 99, carbon dioxide 27, BUN is 13, creatinine 0.93, glucose is 90. AST 58, ALT 100 (continues to trend down),albumin is 3.2. ASSESSMENT AND PLAN: Mr. Ramirez is a 72-year-old male with history of atrial flutter with rapid ventricular response initially on presentation. He converted back to sinus rhythm with amiodarone and has been maintained on amiodarone until today. He has had elevated liver enzymes, which continue to trend down as mentioned above. His renal function remained stable. His family decided against ablative procedures at this time, but are concerned with recurrence of atrial flutter as we discontinued amiodarone. Long-term, he has a high risk as he would remain on amiodarone given his liver disease and likely alcoholic hepatitis. At this time, we discontinued amiodarone in favor of rate control. As previously mentioned, anticoagulation is difficult to manage with decondition and patient's with heavy alcohol abuse. We will have to follow him as an outpatient if so desired. DEBBY
--- NOTE | 2017-08-31 18:01 | PDOC.CTH ---
Cardiology Progress Note - Subjective Pt. seen and eval. by me. No new overnight events.Pt. is still confused. He remains in NSR. The amiodarone has been d/c'd. EP is following the pt. for his arrhythmias. - ROS not able to obtain ROS - Objective Vital Signs Temp Pulse Resp BP BP Pulse Ox 08/31/17 14:56 88 16 94 L 08/31/17 12:00 126/70 08/31/17 08:45 98.2 F 08/31/17 08:00 98.2 F 92 16 126/70 126/70 94 L 08/31/17 07:41 87 18 96 Admit Weight 182 lb 15.739 oz Weight 172 lb 11.2 oz 08/30/17 08/31/17 09/01/17 06:59 06:59 06:59 Intake Total 1020 1440 Output Total 1000 2300 Balance 20 -860 - Physical Examination General/Neuro: NAD Neck: carotid US brisk Lungs: CTA Heart: RRR Abdomen: NT/ND - Labs Result Diagrams: 08/19/17 02:43 08/31/17 04:26 Troponin/CKMB CK-MB (CK-2) 5.1 ng/mL (0-6.6) 08/25/17 13:35 Troponin I 0.042 ng/mL (< 0.028) H 08/25/17 13:35 - Assessment/Plan 1. Atrial fib/flutter with RVR . resolved. The family has decided against ablation. We will see if he remains in NSR off the antiarhythmics. I will sign off. If any further cardiac issues arise then please consult me again.
[2017-09-01] MEDS: Clindamycin 150 MG CAP PO SCH ×3 (01:11→11:03)
--- NOTE | 2017-09-01 06:40 | PDOC.FM ---
- Subjective Subjective: Pt seen at bedside in NAD. KAYLA overnight, no complaints this morning. - Objective MAR Reviewed: Yes Vital Signs & Weight: Vital Signs (12 hours) Temp Pulse Resp BP BP BP Pulse Ox 09/01/17 04:10 135/74 92 L 09/01/17 03:47 98.4 F 103 H 18 135/74 92 L 09/01/17 01:47 90 18 95 08/31/17 20:05 99.1 F 108 H 18 127/75 127/75 97 Weight Admit Weight 83 kg Weight 74.162 kg Most Recent Monitor Data Heart Rate from ECG 85 NIBP 133/75 NIBP BP-Mean 101 Respiration from ECG 19 SpO2 96 I&O: 08/30/17 08/31/17 09/01/17 06:59 06:59 06:59 Intake Total 1020 1440 600 Output Total 1000 2300 700 Balance 20 -860 -100 Result Diagrams: 08/19/17 02:43 08/31/17 04:26 <Atul Gauthier - Last Filed: 09/01/17 08:37> - Objective Vital Signs & Weight: Vital Signs (12 hours) Temp Pulse Resp BP BP Pulse Ox 09/01/17 08:00 98.3 F 95 18 95 09/01/17 07:51 98.3 F 95 18 126/73 126/73 95 09/01/17 04:10 135/74 92 L 09/01/17 03:47 98.4 F 103 H 18 135/74 92 L 09/01/17 01:47 90 18 95 Weight Admit Weight 83 kg Weight 74.162 kg Most Recent Monitor Data Heart Rate from ECG 85 NIBP 133/75 NIBP BP-Mean 101 Respiration from ECG 19 SpO2 96 I&O: 08/31/17 09/01/17 09/02/17 06:59 06:59 06:59 Intake Total 1440 600 Output Total 2300 700 Balance -860 -100 Result Diagrams: 08/19/17 02:43 08/31/17 04:26 <Nat Cline - Last Filed: 09/01/17 10:57> Phys Exam - Physical Examination Constitutional: NAD Respiratory: no wheezing, clear to auscultation bilateral Cardiovascular: no significant murmur Gastrointestinal: soft, non-tender Neurological: moves all 4 limbs Deviation from normal: A&Ox2 <Atul Gauthier - Last Filed: 09/01/17 08:37> Dx/Plan (1) Atrial fibrillation with RVR Code(s): I48.91 - UNSPECIFIED ATRIAL FIBRILLATION Status: Acute Plan: -EP and cardiology on board, recs greatly appreciated -pt initially planned for ablation this AM, however, reports that daughter called and decided against procedure -pt currently on PO amiodarone and has been NSR last 48 hrs with HR 90s, continue to monitor on telemetry -discussed case with specialists and plan is to discontinue amio at about time librium taper is discontinued -pt to be transferred to SNF for continued care, therapy, and med administration -pt not a candidate for terminal press operator amio or other meds per EP -pt had amio discontinued on 08/31 and has continued to be NSR (2) Cellulitis Code(s): L03.90 - CELLULITIS, UNSPECIFIED Status: Acute QualifierTitle: Site of cellulitis of extremity: lower extremity Laterality: right Plan: -improved with completed 7 day course of Clindamycin (3) Alcoholic hepatitis Code(s): K70.10 - ALCOHOLIC HEPATITIS WITHOUT ASCITES Status: Chronic QualifierTitle: Ascites presence: without ascites Qualified Code(s): K70.10 - Alcoholic hepatitis without ascites Plan: -elevated LFTs improving, continue to monitor -continue with Librium taper -pt also had rhabdomyolysis which has resolved (4) Confusion and disorientation Code(s): F99 - MENTAL DISORDER, NOT OTHERWISE SPECIFIED Status: Acute - Plan Plan: Disposition: Pt stable. Discharge planning for placement at SNF vs other facility. Case management assistance greatly appreciated, pt stable for discharge upon placement approval. <Atul Gauthier - Last Filed: 09/01/17 08:37> Attending Addendum - Attending Addendum Date/Time: 09/01/17 1020 I personally evaluated the patient and discussed the management with Dr. Gauthier. I agree with the History, Examination, Assessment and Plan documented above with any addition or exceptions noted below. DTs-resolved. Still on Librium taper. Dementia- patient will need jail placement. Afib/flutter- family declined EP ablation. Off amiodarone and remains in NSR Deconditioning-continue PT Stable for transfer to NH. <Cline,Nat Abi - Last Filed: 09/01/17 10:57>
[2017-09-01] MEDS: Enoxaparin Sodium 40 MG/0.4 ML SYRINGE SC SCH (08:55)
[2017-09-01] MEDS: Tamsulosin HCl 0.4 MG CAP PO SCH (08:56)
[2017-09-01] MEDS: Potassium Chloride 20 MEQ TAB PO SCH ×2 (08:56→16:40)
[2017-09-01] MEDS: Multivitamin W/ Minerals 1 TAB PO SCH (08:56)
[2017-09-01] MEDS: Famotidine 20 MG TAB PO SCH ×2 (08:56→21:19)
[2017-09-01] MEDS: Folic Acid 1 MG TAB PO SCH (08:56)
[2017-09-01] MEDS: Calcium Carbonate 500 MG ChewTAB PO SCH (08:56)
[2017-09-01] MEDS: Magnesium Oxide 400 MG TAB PO SCH (08:56)
--- NOTE | 2017-09-01 09:44 | PRG ---
DATE OF SERVICE: 09/01/2017 ELECTROPHYSIOLOGY FOLLOW UP NOTE REFERRING PHYSICIAN: Dr. Seaman SUBJECTIVE: Mr. Ramirez seems to be doing better, less agitation, still has a sitter. Denies palpita tions, chest pains, no fever, chills, cough, lower extremity swelling is improving. OBJECTIVE: VITAL SIGNS: Blood pressure is 126/73, pulse 95, respirations 18, temperature 98.3 degrees Fahrenhei t. GENERAL: He is alert and oriented man in no apparent distress. NECK: Supple. Jugular veins are distended. CHEST: Coarse without crackles. CARDIOVASCULAR: Heart sounds are regular to rate and rhythm. No murmur or gallop. ABDOMEN: Benign. Bowel sounds positive. EXTREMITIES: Lower extremities edema, no clubbing or cyanosis. Right thigh cellulitis size is resol ving. DATABASE: Telemetry shows continuing sinus rhythm. No atrial flutter or fibrillation is seen. LABORATORY DATA: White count is 9.3, hemoglobin 15.5, platelet count is 158. Sodium 134, potassium 4.4, BUN 13, creatinine 0.93. AST and ALT is 58 and 100 yesterday. CK was reduced due to 299 on . ASSESSMENT AND PLAN: Mr. Ramirez is a 72-year-old man with history of alcoholic hepatitis and encepha lopathy who also presented in atrial fibrillation/flutter, eventually well suppressed with IV amiodar one. Eventually, we planned an atrial flutter ablation, but the family preferred postponing the proc edure. We prefer not to give a long-term amiodarone to this gentleman because of obvious hepatitis t o begin with. Also renal function is currently adequate, but will hold off on any antiarrhythmic age nts at this time. Anticoagulation also difficult proposition in this gentleman with alcoholism. I w ill have to see him back as an outpatient, consideration of a cavotricuspid [facility]thmus ablation [facility]. Call with any questions.
[2017-09-01] MEDS ORDERED: Lorazepam 0.5 MG TAB PO SCH (13:30)
--- NOTE | 2017-09-02 06:29 | PDOC.FM ---
- Subjective Subjective: Pt seen at bedside in NAD. KAYLA overnight, no complaints this morning. - Objective MAR Reviewed: Yes Vital Signs & Weight: Vital Signs (12 hours) Temp Pulse Resp BP BP Pulse Ox 09/02/17 06:26 85 16 96 09/02/17 04:10 127/69 99 09/02/17 04:00 97.2 F L 85 20 127/69 99 09/02/17 00:51 90 18 95 09/02/17 00:15 136/83 09/02/17 00:00 92 136/83 09/01/17 19:45 98.1 F 97 20 138/86 138/86 95 09/01/17 19:20 98.1 F 97 20 95 09/01/17 18:28 91 18 95 Weight Admit Weight 83 kg Weight 79.152 kg Most Recent Monitor Data Heart Rate from ECG 85 NIBP 133/75 NIBP BP-Mean 101 Respiration from ECG 19 SpO2 96 I&O: 08/31/17 09/01/17 09/02/17 06:59 06:59 06:59 Intake Total 1440 600 480 Output Total 2300 700 150 Balance -860 -100 330 Result Diagrams: 08/19/17 02:43 08/31/17 04:26 <Atul Gauthier - Last Filed: 09/02/17 14:59> - Objective Vital Signs & Weight: Vital Signs (12 hours) Temp Pulse Pulse Pulse Resp BP BP 09/02/17 13:50 91 92 139/82 09/02/17 11:11 98.4 F 93 18 133/73 09/02/17 08:00 98 F 95 18 09/02/17 07:53 98 F 95 18 127/62 09/02/17 06:26 85 16 09/02/17 04:10 127/69 09/02/17 04:00 97.2 F L 85 20 BP BP Pulse Ox 09/02/17 13:50 119/75 09/02/17 11:11 133/73 96 09/02/17 08:00 92 L 09/02/17 07:53 127/62 92 L 09/02/17 06:26 96 09/02/17 04:10 99 09/02/17 04:00 127/69 99 Weight Admit Weight 83 kg Weight 79.152 kg Most Recent Monitor Data Heart Rate from ECG 85 NIBP 133/75 NIBP BP-Mean 101 Respiration from ECG 19 SpO2 96 I&O: 09/01/17 09/02/17 09/03/17 06:59 06:59 06:59 Intake Total 600 1080 Output Total 700 650 Balance -100 430 Result Diagrams: 08/19/17 02:43 08/31/17 04:26 <Nat Cline - Last Filed: 09/02/17 15:24> Phys Exam - Physical Examination Constitutional: NAD Respiratory: no wheezing, clear to auscultation bilateral Cardiovascular: no significant murmur Gastrointestinal: soft, non-tender Neurological: moves all 4 limbs Deviation from normal: A&Ox2 <Atul Gauthier - Last Filed: 09/02/17 14:59> Dx/Plan (1) Atrial fibrillation with RVR Code(s): I48.91 - UNSPECIFIED ATRIAL FIBRILLATION Status: Acute Plan: -EP and cardiology on board, recs greatly appreciated -pt initially planned for ablation this AM, however, reports that daughter called and decided against procedure -pt currently on PO amiodarone and has been NSR last 48 hrs with HR 90s, continue to monitor on telemetry -discussed case with specialists and plan is to discontinue amio at about time librium taper is discontinued -pt to be transferred to SNF for continued care, therapy, and med administration -pt not a candidate for buttermaker helper amio or other meds per EP -pt had amio discontinued on 08/31 and has continued to be NSR -no recurrence of arrhythmia since d/c of amio (2) Cellulitis Code(s): L03.90 - CELLULITIS, UNSPECIFIED Status: Acute QualifierTitle: Site of cellulitis of extremity: lower extremity Laterality: right Plan: -improved with completed 7 day course of Clindamycin (3) Alcoholic hepatitis Code(s): K70.10 - ALCOHOLIC HEPATITIS WITHOUT ASCITES Status: Chronic QualifierTitle: Ascites presence: without ascites Qualified Code(s): K70.10 - Alcoholic hepatitis without ascites Plan: -continue with Librium taper -pt also had rhabdomyolysis which has resolved (4) Confusion and disorientation Code(s): F99 - MENTAL DISORDER, NOT OTHERWISE SPECIFIED Status: Acute Plan: -continue sitter - Plan Plan: Disposition: Pt stable. Discharge planning for placement at SNF vs other facility. Awaiting approval from [facility] for SNF. Case management assistance greatly appreciated, pt stable for discharge upon placement approval. Transfer to medical as pt has been stable on telemetry and no longer requiring monitoring. <Atul Gauthier - Last Filed: 09/02/17 14:59> Attending Addendum - Attending Addendum Date/Time: 09/02/17 4900 I personally evaluated the patient and discussed the management with Dr. Gauthier I agree with the History, Examination, Assessment and Plan documented above with any addition or exceptions noted below. Chronic alcohol abuse- s/p DT and withdrawal. Currently on Librium taper and doing well. Dementia-needs placement for safety. CM assisting in these arrangements. Stable for d/c once this established. Afib/flutter- in NSR and off amidarone for >24 hours. Deconditioning <Nat Cline - Last Filed: 09/02/17 15:24>
[2017-09-02] MEDS: Magnesium Oxide 400 MG TAB PO SCH (08:33)
[2017-09-02] MEDS: Enoxaparin Sodium 40 MG/0.4 ML SYRINGE SC SCH (08:33)
[2017-09-02] MEDS: Calcium Carbonate 500 MG ChewTAB PO SCH (08:33)
[2017-09-02] MEDS: Potassium Chloride 20 MEQ TAB PO SCH ×2 (08:33→16:31)
[2017-09-02] MEDS: Multivitamin W/ Minerals 1 TAB PO SCH (08:33)
[2017-09-02] MEDS: Famotidine 20 MG TAB PO SCH ×2 (08:33→20:30)
[2017-09-02] MEDS: Tamsulosin HCl 0.4 MG CAP PO SCH (08:34)
[2017-09-02] MEDS: Folic Acid 1 MG TAB PO SCH (08:34)
--- NOTE | 2017-09-02 16:13 | PDOC.EVN ---
Event Note - Event Note Event Note: Patient is a 72 yo male with a reported history of baseline dementia and significant alcohol abuse who presented after being found down and subsequently suffering from alcohol withdrawal. The patient has only been oriented to himself throughout the hospital stay does not display the capacity to make medical decisions.
--- NOTE | 2017-09-03 06:44 | PDOC.FM ---
- Subjective Subjective: Pt seen at bedside in NAD. KAYLA overnight, no complaints this morning. - Objective MAR Reviewed: Yes Vital Signs & Weight: Vital Signs (12 hours) Temp Pulse Resp BP BP Pulse Ox 09/03/17 04:00 98 F 96 18 103/68 103/68 98 09/03/17 00:00 98.7 F 95 18 105/68 105/68 95 09/02/17 20:00 98.2 F 92 18 96 Weight Admit Weight 83 kg Weight 70.76 kg Most Recent Monitor Data Heart Rate from ECG 85 NIBP 133/75 NIBP BP-Mean 101 Respiration from ECG 19 SpO2 96 I&O: 09/01/17 09/02/17 09/03/17 06:59 06:59 06:59 Intake Total 600 1080 820 Output Total 700 650 200 Balance -100 430 620 Result Diagrams: 08/19/17 02:43 08/31/17 04:26 <Atul Gauthier - Last Filed: 09/03/17 11:22> - Objective Vital Signs & Weight: Vital Signs (12 hours) Temp Pulse Resp BP BP BP Pulse Ox 09/03/17 12:00 98.2 F 96 16 104/70 104/70 93 L 09/03/17 08:00 124/87 09/03/17 07:24 97.8 F 98 18 124/87 96 09/03/17 04:00 98 F 96 18 103/68 103/68 98 Weight Admit Weight 83 kg Weight 70.76 kg Most Recent Monitor Data Heart Rate from ECG 85 NIBP 133/75 NIBP BP-Mean 101 Respiration from ECG 19 SpO2 96 I&O: 09/02/17 09/03/17 09/04/17 06:59 06:59 06:59 Intake Total 1080 820 Output Total 650 200 Balance 430 620 Result Diagrams: 08/19/17 02:43 08/31/17 04:26 <Nat Cline - Last Filed: 09/03/17 15:20> Phys Exam - Physical Examination Constitutional: NAD Respiratory: no wheezing, clear to auscultation bilateral Cardiovascular: no significant murmur Gastrointestinal: soft, non-tender Neurological: moves all 4 limbs Deviation from normal: A&Ox2 <Atul Gauthier - Last Filed: 09/03/17 11:22> Dx/Plan (1) Atrial fibrillation with RVR Code(s): I48.91 - UNSPECIFIED ATRIAL FIBRILLATION Status: Acute Plan: -EP and cardiology on board, recs greatly appreciated -pt initially planned for ablation this AM, however, reports that daughter called and decided against procedure -pt currently on PO amiodarone and has been NSR last 48 hrs with HR 90s, continue to monitor on telemetry -discussed case with specialists and plan is to discontinue amio at about time librium taper is discontinued -pt to be transferred to SNF for continued care, therapy, and med administration -pt not a candidate for exterminator amio or other meds per EP -pt had amio discontinued on 08/31 and has continued to be NSR -no recurrence of arrhythmia since d/c of amio (2) Cellulitis Code(s): L03.90 - CELLULITIS, UNSPECIFIED Status: Acute QualifierTitle: Site of cellulitis of extremity: lower extremity Laterality: right Plan: -improved with completed 7 day course of Clindamycin (3) Alcoholic hepatitis Code(s): K70.10 - ALCOHOLIC HEPATITIS WITHOUT ASCITES Status: Chronic QualifierTitle: Ascites presence: without ascites Qualified Code(s): K70.10 - Alcoholic hepatitis without ascites Plan: -continue with Librium taper -pt also had rhabdomyolysis which has resolved (4) Confusion and disorientation Code(s): F99 - MENTAL DISORDER, NOT OTHERWISE SPECIFIED Status: Acute Plan: -continue sitter - Plan Plan: dispo: Pt stable for discharge pending SNF approval for continued therapy. Continue to monitor. <Atul Gauthier - Last Filed: 09/03/17 11:22> Attending Addendum - Attending Addendum Date/Time: 09/03/17 8989 I personally evaluated the patient and discussed the management with Dr. Gauthier I agree with the History, Examination, Assessment and Plan documented above with any addition or exceptions noted below. Chronic alcohol abuse- s/p DTs and withdrawal in ICU- now on Librium. 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 Today he is A& O x 1. Appreciate CM assistance to help with placement discussion. <Nat Cline - Last Filed: 09/03/17 15:20>
[2017-09-03] MEDS: Enoxaparin Sodium 40 MG/0.4 ML SYRINGE SC SCH (09:04)
[2017-09-03] MEDS: Tamsulosin HCl 0.4 MG CAP PO SCH (09:04)
[2017-09-03] MEDS: Magnesium Oxide 400 MG TAB PO SCH (09:05)
[2017-09-03] MEDS: Folic Acid 1 MG TAB PO SCH (09:05)
[2017-09-03] MEDS: Calcium Carbonate 500 MG ChewTAB PO SCH (09:05)
[2017-09-03] MEDS: Potassium Chloride 20 MEQ TAB PO SCH ×2 (09:05→17:36)
[2017-09-03] MEDS: Multivitamin W/ Minerals 1 TAB PO SCH (09:05)
[2017-09-03] MEDS: Famotidine 20 MG TAB PO SCH ×2 (09:05→21:16)
--- NOTE | 2017-09-04 06:41 | PDOC.FM ---
- Subjective Subjective: Patient is happily confused this morning, sitting up eating breakfast. Sitter in place. No acute events overnight. - Objective MAR Reviewed: Yes Vital Signs & Weight: Vital Signs (12 hours) Temp Pulse Resp BP BP Pulse Ox 09/04/17 04:03 97.6 F 91 20 109/72 109/72 94 L 09/04/17 00:06 98.3 F 96 20 109/73 109/73 94 L 09/03/17 21:12 97.7 F 96 20 93 L 09/03/17 20:00 97.7 F 96 20 107/71 107/71 93 L Weight Admit Weight 83 kg Weight 83.869 kg Most Recent Monitor Data Heart Rate from ECG 85 NIBP 133/75 NIBP BP-Mean 101 Respiration from ECG 19 SpO2 96 I&O: 09/02/17 09/03/17 09/04/17 06:59 06:59 06:59 Intake Total 1080 820 720 Output Total 650 200 300 Balance 430 620 420 Result Diagrams: 08/19/17 02:43 08/31/17 04:26 <Hedy Swenson - Last Filed: 09/04/17 11:49> - Objective Vital Signs & Weight: Vital Signs (12 hours) Temp Pulse Resp BP BP Pulse Ox 09/04/17 08:00 97.8 F 89 18 113/76 95 09/04/17 04:03 97.6 F 91 20 109/72 109/72 94 L 09/04/17 00:06 98.3 F 96 20 109/73 109/73 94 L Weight Admit Weight 83 kg Weight 83.869 kg Most Recent Monitor Data Heart Rate from ECG 85 NIBP 133/75 NIBP BP-Mean 101 Respiration from ECG 19 SpO2 96 I&O: 09/03/17 09/04/17 09/05/17 06:59 06:59 06:59 Intake Total 820 720 360 Output Total 200 300 Balance 620 420 360 Result Diagrams: 08/19/17 02:43 08/31/17 04:26 <Kamran Treviño - Last Filed: 09/04/17 12:01> Phys Exam - Physical Examination Constitutional: NAD HEENT: PERRLA, moist MMs Respiratory: no wheezing, no rales, clear to auscultation bilateral Cardiovascular: RRR, no significant murmur Gastrointestinal: soft, non-tender Neurological: moves all 4 limbs Deviation from normal: AOx1 <Hedy Swenson - Last Filed: 09/04/17 11:49> Dx/Plan (1) Atrial fibrillation with RVR Code(s): I48.91 - UNSPECIFIED ATRIAL FIBRILLATION Status: Resolved (2) Cellulitis Code(s): L03.90 - CELLULITIS, UNSPECIFIED Status: Resolved QualifierTitle: Site of cellulitis of extremity: lower extremity Laterality: right (3) Confusion and disorientation Code(s): F99 - MENTAL DISORDER, NOT OTHERWISE SPECIFIED Status: Acute - Plan Plan: Afib with RVR, resolved -EP and cardiology on board, recs greatly appreciated -pt initially planned for ablation this AM, however, reports that daughter called and decided against procedure -pt was on PO amiodarone but has significant liver disease so is not a candidate for parts counterman amio or other meds per EP, not currently on any meds and has been NSR since d/c of amio -pt to be transferred to SNF for continued care, therapy, and med administration. CM working on placement. Cellulitis, resolved -improved with completed 7 day course of Clindamycin Alcoholic Hepatitis, resolved -continue with Librium taper -pt also had rhabdomyolysis which has resolved Confusion and Disorientation -continue sitter Dispo: Pt stable for discharge pending SNF approval for continued therapy. Continue to monitor. <Hedy Swenson - Last Filed: 09/04/17 11:49> Attending Addendum - Attending Addendum Date/Time: 09/04/17 4559 I personally evaluated the patient and discussed the management with Dr. Swenson. I agree with the History, Examination, Assessment and Plan documented above with any addition or exceptions noted below. Patient doing well and has no complaints. His afib has resolved and rate has been normal on Metoprolol. No evidence of EtOH withdrawals. He continues to need sitter arranged in his room to prevent falls and erratic behavior. He may have some degree of permanent dementia from alcohol such as Korsakoff psychosis , though his is not currently agitated and does not confabulate. If continues, may begin trial of Geodon therapy and see if he improves. Otherwise, awaiting potential placement. <Kamran Treviño - Last Filed: 09/04/17 12:01>
[2017-09-04] MEDS: Folic Acid 1 MG TAB PO SCH (08:16)
[2017-09-04] MEDS: Multivitamin W/ Minerals 1 TAB PO SCH (08:16)
[2017-09-04] MEDS: Tamsulosin HCl 0.4 MG CAP PO SCH (08:16)
[2017-09-04] MEDS: Enoxaparin Sodium 40 MG/0.4 ML SYRINGE SC SCH (08:17)
[2017-09-04] MEDS: Magnesium Oxide 400 MG TAB PO SCH (08:17)
[2017-09-04] MEDS: Famotidine 20 MG TAB PO SCH ×2 (08:17→20:44)
[2017-09-04] MEDS: Calcium Carbonate 500 MG ChewTAB PO SCH (08:17)
[2017-09-04] MEDS: Potassium Chloride 20 MEQ TAB PO SCH ×2 (08:17→16:32)
--- NOTE | 2017-09-04 21:28 | PRG ---
DATE OF SERVICE: 09/04/2017 SERVICE: Pulmonary Medicine. INTERVAL HISTORY: The patient is doing fantastic from a cardiovascular and respiratory standpoint. He denies any current chest pain, nausea, vomiting or shortness of breath. He remains pleasantly con fused. Apparently, he was a little agitated earlier, but settled down. There has been no interval c hange to his condition. PHYSICAL EXAMINATION: VITAL SIGNS: Afebrile, pulse 92, blood pressure 89/55, respirations 18, saturation 96% on room air. GENERAL: The patient is awake, alert, no apparent distress. LUNGS: Excellent air entry with no prolonged expiratory phase. EXTREMITIES: There is no pitting in the bilateral lower extremities. NEUROLOGIC: Grossly nonfocal. ASSESSMENT: 1. Delirium tremens, resolved. 2. Korsakoff amnesia, possible. 3. Atrial fibrillation. DISCUSSION AND PLAN: The patient has no further requirements for inpatient Pulmonary or Critical Car e opinion. We will sign off. Please call with additional questions or concerns moving forward.
--- NOTE | 2017-09-05 06:25 | PDOC.FM ---
- Subjective Subjective: Patient is resting comfortably this morning. Sitter reports he was up all night , only slept 2 hours. He was confused and tried to get out of bed multiple times. - Objective MAR Reviewed: Yes Vital Signs & Weight: Vital Signs (12 hours) Temp Pulse Resp BP BP BP Pulse Ox 09/05/17 04:16 97.6 F 94 18 116/69 116/69 95 09/05/17 00:06 109/84 09/04/17 23:53 98.9 F 94 18 109/84 92 L 09/04/17 20:40 97.5 F L 95 20 113/72 113/72 93 L Weight Admit Weight 83 kg Weight 79.878 kg Most Recent Monitor Data Heart Rate from ECG 85 NIBP 133/75 NIBP BP-Mean 101 Respiration from ECG 19 SpO2 96 I&O: 09/03/17 09/04/17 09/05/17 06:59 06:59 06:59 Intake Total 112 510 0546 Output Total 200 300 700 Balance 620 420 700 Result Diagrams: 08/19/17 02:43 08/31/17 04:26 <Hedy Swenson - Last Filed: 09/05/17 07:14> - Objective Vital Signs & Weight: Vital Signs (12 hours) Temp Pulse Resp BP BP BP Pulse Ox 09/05/17 08:00 98.1 F 91 16 95 09/05/17 07:50 98.1 F 91 16 104/72 94 L 09/05/17 04:16 97.6 F 94 18 116/69 116/69 95 09/05/17 00:06 109/84 09/04/17 23:53 98.9 F 94 18 109/84 92 L Weight Admit Weight 83 kg Weight 79.878 kg Most Recent Monitor Data Heart Rate from ECG 85 NIBP 133/75 NIBP BP-Mean 101 Respiration from ECG 19 SpO2 96 I&O: 09/04/17 09/05/17 09/06/17 06:59 06:59 06:59 Intake Total 720 1400 240 Output Total 300 700 Balance 420 700 240 Result Diagrams: 08/19/17 02:43 08/31/17 04:26 <Kamran Treviño - Last Filed: 09/05/17 10:46> Phys Exam - Physical Examination Constitutional: NAD HEENT: moist MMs Respiratory: no wheezing, no rales, clear to auscultation bilateral Cardiovascular: RRR, no significant murmur Musculoskeletal: no edema Deviation from normal: AOx1 <Hedy Swenson - Last Filed: 09/05/17 07:14> Dx/Plan (1) Atrial fibrillation with RVR Code(s): I48.91 - UNSPECIFIED ATRIAL FIBRILLATION Status: Resolved (2) Cellulitis Code(s): L03.90 - CELLULITIS, UNSPECIFIED Status: Resolved QualifierTitle: Site of cellulitis of extremity: lower extremity Laterality: right (3) Confusion and disorientation Code(s): F99 - MENTAL DISORDER, NOT OTHERWISE SPECIFIED Status: Acute - Plan Plan: Afib with RVR, resolved -EP and cardiology on board, recs greatly appreciated -pt initially planned for ablation this AM, however, reports that daughter called and decided against procedure -pt was on PO amiodarone but has significant liver disease so is not a candidate for correction amio or other meds per EP, not currently on any meds and has been NSR since d/c of amio -pt to be transferred to SNF for continued care, therapy, and med administration. CM working on placement. Cellulitis, resolved -improved with completed 7 day course of Clindamycin Alcoholic Hepatitis, resolved -continue with Librium taper, decrease to 20mg BID -pt also had rhabdomyolysis which has resolved Confusion and Disorientation -continue sitter Dispo: Pt stable for discharge pending SNF approval for continued therapy. Continue to monitor. <Hedy Swenson - Last Filed: 09/05/17 07:14> Attending Addendum - Attending Addendum Date/Time: 09/05/17 1045 I personally evaluated the patient and discussed the management with Dr. Swenson. I agree with the History, Examination, Assessment and Plan documented above with any addition or exceptions noted below. Patient continues to have no complaints. He continues to have intermittent confusion that may be related to chronic alcoholism. Requiring sitter. Will give trial of PO Geodon and see if it improves his behavior. Awaiting placement. Vitals stable. <Kamran Treviño - Last Filed: 09/05/17 10:46>
[2017-09-05] MEDS: Famotidine 20 MG TAB PO SCH ×2 (09:57→20:25)
[2017-09-05] MEDS: Calcium Carbonate 500 MG ChewTAB PO SCH (09:57)
[2017-09-05] MEDS: Magnesium Oxide 400 MG TAB PO SCH (09:57)
[2017-09-05] MEDS: Potassium Chloride 20 MEQ TAB PO SCH ×2 (09:58→16:37)
[2017-09-05] MEDS: Enoxaparin Sodium 40 MG/0.4 ML SYRINGE SC SCH (09:58)
[2017-09-05] MEDS: Tamsulosin HCl 0.4 MG CAP PO SCH (09:58)
[2017-09-05] MEDS: Multivitamin W/ Minerals 1 TAB PO SCH (09:58)
[2017-09-05] MEDS: Folic Acid 1 MG TAB PO SCH (09:58)
[2017-09-05] MEDS ORDERED: Ziprasidone 20 MG CAP PO SCH (11:00)
[2017-09-06] MEDS: Calcium Carbonate 500 MG ChewTAB PO SCH (10:24)
[2017-09-06] MEDS: Famotidine 20 MG TAB PO SCH ×2 (10:26→22:35)
[2017-09-06] MEDS: Tamsulosin HCl 0.4 MG CAP PO SCH (10:26)
[2017-09-06] MEDS: Multivitamin W/ Minerals 1 TAB PO SCH (10:26)
[2017-09-06] MEDS: Folic Acid 1 MG TAB PO SCH (10:26)
[2017-09-06] MEDS: Potassium Chloride 20 MEQ TAB PO SCH ×2 (10:28→16:58)
[2017-09-06] MEDS: Enoxaparin Sodium 40 MG/0.4 ML SYRINGE SC SCH (10:28)
[2017-09-06] MEDS: Magnesium Oxide 400 MG TAB PO SCH (10:28)
--- NOTE | 2017-09-06 11:22 | PDOC.FM ---
- Subjective Subjective: Pt seen at bedside in NAD. Sitter at bedside. KAYLA overnight. - Objective MAR Reviewed: Yes Vital Signs & Weight: Vital Signs (12 hours) Temp Pulse Resp BP BP Pulse Ox 09/06/17 08:00 97.5 F L 91 18 102/73 102/73 95 09/06/17 04:19 113/77 09/06/17 04:00 97.8 F 86 18 113/77 96 09/06/17 00:03 133/87 09/06/17 00:00 97.5 F L 86 18 133/87 99 Weight Admit Weight 83 kg Weight 80.694 kg Most Recent Monitor Data Heart Rate from ECG 85 NIBP 133/75 NIBP BP-Mean 101 Respiration from ECG 19 SpO2 96 I&O: 09/05/17 09/06/17 09/07/17 06:59 06:59 06:59 Intake Total 1400 1240 Output Total 700 600 Balance 700 640 Result Diagrams: 08/19/17 02:43 08/31/17 04:26 <Atul Gauthier M - Last Filed: 09/06/17 11:19> - Objective Vital Signs & Weight: Vital Signs (12 hours) Temp Pulse Resp BP BP Pulse Ox 09/06/17 08:00 97.5 F L 91 18 102/73 102/73 95 09/06/17 04:19 113/77 09/06/17 04:00 97.8 F 86 18 113/77 96 09/06/17 00:03 133/87 09/06/17 00:00 97.5 F L 86 18 133/87 99 Weight Admit Weight 83 kg Weight 80.694 kg Most Recent Monitor Data Heart Rate from ECG 85 NIBP 133/75 NIBP BP-Mean 101 Respiration from ECG 19 SpO2 96 I&O: 09/05/17 09/06/17 09/07/17 06:59 06:59 06:59 Intake Total 1400 1240 Output Total 700 600 Balance 700 640 Result Diagrams: 08/19/17 02:43 08/31/17 04:26 <Kamran Treviño R - Last Filed: 09/06/17 11:34> Phys Exam - Physical Examination Constitutional: NAD HEENT: moist MMs Respiratory: no wheezing, clear to auscultation bilateral Cardiovascular: RRR, no significant murmur Musculoskeletal: no edema Neurological: moves all 4 limbs Deviation from normal: A&Ox1, intermittely answers questions <Atul Gauthier - Last Filed: 09/06/17 11:19> Dx/Plan (1) Confusion and disorientation Code(s): F99 - MENTAL DISORDER, NOT OTHERWISE SPECIFIED Status: Acute Plan: -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 pt has been started on geodon with little effect. pt continues to be A&Ox1 and dependent on sitter to reorient and two person assistance for out of bed activities. -continue sitter and therapy -placement pending (2) Alcoholic hepatitis Code(s): K70.10 - ALCOHOLIC HEPATITIS WITHOUT ASCITES Status: Chronic QualifierTitle: Ascites presence: without ascites Qualified Code(s): K70.10 - Alcoholic hepatitis without ascites Plan: -continue with Librium taper (3) Atrial fibrillation with RVR Code(s): I48.91 - UNSPECIFIED ATRIAL FIBRILLATION Status: Resolved Plan: -EP and cardiology on board, recs greatly appreciated -pt initially planned for ablation this AM, however, reports that daughter called and decided against procedure -pt currently on PO amiodarone and has been NSR last 48 hrs with HR 90s, continue to monitor on telemetry -discussed case with specialists and plan is to discontinue amio at about time librium taper is discontinued -pt to be transferred to SNF for continued care, therapy, and med administration -pt not a candidate for long term care social worker amio or other meds per EP -pt had amio discontinued on 08/31 and has continued to be NSR -no recurrence of arrhythmia since d/c of amio (4) Cellulitis Code(s): L03.90 - CELLULITIS, UNSPECIFIED Status: Resolved QualifierTitle: Site of cellulitis of extremity: lower extremity Laterality: right Plan: -improved with completed 7 day course of Clindamycin - Plan Plan: disposition: Pt medically stable. CM assistance appreciated, pt needs placement as he is unsafe to go without sitter. Stable for discharge upon placement approval. <Atul Gauthier - Last Filed: 09/06/17 11:19> Attending Addendum - Attending Addendum Date/Time: 09/06/17 9289 I personally evaluated the patient and discussed the management with Dr. Gauthier. I agree with the History, Examination, Assessment and Plan documented above with any addition or exceptions noted below. Patient stable from a medical standpoint. He continues to remain in the hospital due to his inability to go home safely, but resistance of facilities to accept him due to requiring a sitter for agitation/instruction disregard. Otherwise, there is no other indication for patient to remain in hospital. Will discuss with CM and possibly higher administration about other options. [place] did not improve his behavior, and this condition is likely a permanent condition due to his chronic alcoholism such as a Korsakoff amnesia/psychosis. Needs placement or more family involvement in his care. <Kamran Treviño - Last Filed: 09/06/17 11:34>
[2017-09-06] MEDS: Ziprasidone 20 MG CAP PO SCH (12:22)
--- NOTE | 2017-09-06 23:31 | PDOC.EVN ---
Event Note - Event Note Event Note: After receiving a page from the nursing staff that the pts daughter was repeatedly calling and demanding to speak with a physician I called and spoke with the pts daughter at length. She expressed concern that her father may be in a flutter again and was requesting an EKG. She had these concerns because there was one BP that was 90s systolic/50s diastolic and, according to her this happened last time he was in a-flutter. On review of the pts vitals his isolated bp of 90s/50s was aberrant compared to others before and after. Additionally, the pts pulse rate has been persistently in the 90s-low 100s and the pt has been entirely asymptomatic throughout this time. While in flutter the pts pulse rate exceeded 130 BPM. Furthermore, the pt was loaded with amiodarone and was maintained in NSR prior to transition to medical floor. On review of records it appears the family was offered cardiac ablation as definitive treatment for the atrial flutter and they denied. According to the daughter, they denied the procedure because he had converted to NSR with the amiodarone and she did not deem it as a necessary risk. Given the pts elevated liver enzymes and overall liver function the pt is not a candidate for alf medical management with amiodarone, thus definitive treatment with cardiac ablation was offered which the family refused. Additionally, the pharmacokinetics (including peak onset, half life, clearance and duration of action) of amiodarone were discussed at length with the daughter. All of the above were explained in detail to the pt's daughter who was ultimately understanding. I explained that if at any time during the course of the night it becomes medically indicated to repeat an EKG we would do so without hesitation. She was tearful and upset over the current health of her father, but ultimately appreciative of the phone call.
--- NOTE | 2017-09-07 07:35 | PDOC.FM ---
- Subjective Subjective: Pt seen at bedside in NAD. Sitter at bedside. KAYLA overnight. - Objective MAR Reviewed: Yes Vital Signs & Weight: Vital Signs (12 hours) Temp Pulse Resp BP BP Pulse Ox 09/07/17 04:00 97.4 F L 97 18 116/76 97 09/07/17 00:00 97.5 F L 91 18 121/63 121/63 94 L 09/06/17 20:00 97.7 F 96 18 134/77 134/77 95 Weight Admit Weight 83 kg Weight 80.1 kg Most Recent Monitor Data Heart Rate from ECG 85 NIBP 133/75 NIBP BP-Mean 101 Respiration from ECG 19 SpO2 96 I&O: 09/06/17 09/07/17 09/08/17 06:59 06:59 06:59 Intake Total 1240 800 Output Total 600 Balance 640 800 Result Diagrams: 08/19/17 02:43 08/31/17 04:26 <Atul Gauthier - Last Filed: 09/07/17 10:47> - Objective Vital Signs & Weight: Vital Signs (12 hours) Temp Pulse Resp BP BP BP Pulse Ox 09/07/17 09:54 98.2 F 94 16 114/75 93 L 09/07/17 04:00 97.4 F L 97 18 116/76 97 09/07/17 00:00 97.5 F L 91 18 121/63 121/63 94 L Weight Admit Weight 83 kg Weight 80.1 kg Most Recent Monitor Data Heart Rate from ECG 85 NIBP 133/75 NIBP BP-Mean 101 Respiration from ECG 19 SpO2 96 I&O: 09/06/17 09/07/17 09/08/17 06:59 06:59 06:59 Intake Total 1240 800 Output Total 600 Balance 640 800 Result Diagrams: 08/19/17 02:43 08/31/17 04:26 <Kamran Treviño - Last Filed: 09/07/17 11:31> Phys Exam - Physical Examination Constitutional: NAD HEENT: moist MMs Respiratory: no wheezing, clear to auscultation bilateral Cardiovascular: RRR, no significant murmur Musculoskeletal: no edema Deviation from normal: A&Ox1, intermittently answers questions appropriately <Atul Gauthier - Last Filed: 09/07/17 10:47> Dx/Plan (1) Confusion and disorientation Code(s): F99 - MENTAL DISORDER, NOT OTHERWISE SPECIFIED Status: Acute Plan: -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 pt has been started on geodon with little effect. pt continues to be A&Ox1 and dependent on sitter to reorient and two person assistance for out of bed activities. -discontinue geodon at this time as no clinical benefit and pt at risk for noncompliance and medication SE -continue sitter and therapy -placement pending (2) Alcoholic hepatitis Code(s): K70.10 - ALCOHOLIC HEPATITIS WITHOUT ASCITES Status: Chronic QualifierTitle: Ascites presence: without ascites Qualified Code(s): K70.10 - Alcoholic hepatitis without ascites Plan: -continue with Librium taper (3) Atrial fibrillation with RVR Code(s): I48.91 - UNSPECIFIED ATRIAL FIBRILLATION Status: Resolved Plan: -EP and cardiology on board, recs greatly appreciated -pt initially planned for ablation this AM, however, reports that daughter called and decided against procedure -pt currently on PO amiodarone and has been NSR last 48 hrs with HR 90s, continue to monitor on telemetry -discussed case with specialists and plan is to discontinue amio at about time librium taper is discontinued -pt to be transferred to SNF for continued care, therapy, and med administration -pt not a candidate for assisted amio or other meds per EP -pt had amio discontinued on 08/31 and has continued to be NSR -no recurrence of arrhythmia since d/c of amio (4) Cellulitis Code(s): L03.90 - CELLULITIS, UNSPECIFIED Status: Resolved QualifierTitle: Site of cellulitis of extremity: lower extremity Laterality: right Plan: -improved with completed 7 day course of Clindamycin - Plan Plan: disposition: Pt stable. Long discussion with family last night regarding pt's care and discharge planning. Have set up meeting this AM with CM and hospital administration regarding disposition and discharge planning. Pt has been medically stable for discharge pending placement. <Atul Gauthier - Last Filed: 09/07/17 10:47> Attending Addendum - Attending Addendum Date/Time: 09/07/17 1130 I personally evaluated the patient and discussed the management with Dr. Gauthier. I agree with the History, Examination, Assessment and Plan documented above with any addition or exceptions noted below. No changes with patient status. No indication of recurrent Afib/flutter. He has no complaints. Continues to require sitter. Awaiting placement. We continue to have patient in hospital for which we are providing no meaningful medical care that requires inpatient hospitalization. Meeting with admin this morning to discuss options going forward. <Kamran Treviño - Last Filed: 09/07/17 11:31>
[2017-09-07] MEDS: Potassium Chloride 20 MEQ TAB PO SCH ×2 (09:55→17:01)
[2017-09-07] MEDS: Enoxaparin Sodium 40 MG/0.4 ML SYRINGE SC SCH (09:55)
[2017-09-07] MEDS: Calcium Carbonate 500 MG ChewTAB PO SCH (09:55)
[2017-09-07] MEDS: Ziprasidone 20 MG CAP PO SCH (09:56)
[2017-09-07] MEDS: Tamsulosin HCl 0.4 MG CAP PO SCH (09:56)
[2017-09-07] MEDS: Folic Acid 1 MG TAB PO SCH (09:56)
[2017-09-07] MEDS: Multivitamin W/ Minerals 1 TAB PO SCH (09:56)
[2017-09-07] MEDS: Famotidine 20 MG TAB PO SCH (09:56)
[2017-09-07] MEDS: Magnesium Oxide 400 MG TAB PO SCH (09:56)
[2017-09-07 14:09] VITALS: BMI 26.8
[2017-09-07] MEDS ORDERED: Lorazepam 0.5 MG TAB PO SCH (16:30)
[2017-09-08] MEDS: Famotidine 20 MG TAB PO SCH ×3 (01:28→20:21)
--- NOTE | 2017-09-08 06:58 | PDOC.FM ---
- Subjective Subjective: Pt seen at bedside in NAD. KAYLA overnight. Sitter at bedside. - Objective MAR Reviewed: Yes Vital Signs & Weight: Vital Signs (12 hours) Temp Pulse Resp BP BP Pulse Ox 09/08/17 04:00 97.9 F 91 16 115/78 94 L 09/08/17 00:00 97.9 F 93 16 109/73 109/73 92 L 09/07/17 20:00 98 F 96 16 110/74 110/74 96 Weight Admit Weight 83 kg Weight 80 kg Most Recent Monitor Data Heart Rate from ECG 85 NIBP 133/75 NIBP BP-Mean 101 Respiration from ECG 19 SpO2 96 I&O: 09/06/17 09/07/17 09/08/17 06:59 06:59 06:59 Intake Total 1240 800 750 Output Total 600 Balance 640 800 750 Result Diagrams: 08/19/17 02:43 08/31/17 04:26 <Atul Gauthier - Last Filed: 09/08/17 08:55> - Objective Vital Signs & Weight: Vital Signs (12 hours) Temp Pulse Resp BP Pulse Ox 09/08/17 07:52 90 17 109/74 92 L 09/08/17 04:00 97.9 F 91 16 115/78 94 L Weight Admit Weight 83 kg Weight 80 kg Most Recent Monitor Data Heart Rate from ECG 85 NIBP 133/75 NIBP BP-Mean 101 Respiration from ECG 19 SpO2 96 I&O: 09/07/17 09/08/17 09/09/17 06:59 06:59 06:59 Intake Total 800 1050 Output Total 425 Balance 800 625 Result Diagrams: 08/19/17 02:43 08/31/17 04:26 <Kamran Treviño - Last Filed: 09/08/17 12:34> Phys Exam - Physical Examination Constitutional: NAD HEENT: moist MMs Respiratory: no wheezing, clear to auscultation bilateral Cardiovascular: RRR, no significant murmur Musculoskeletal: no edema Deviation from normal: A&Ox1 <Atul Gauthier - Last Filed: 09/08/17 08:55> Dx/Plan (1) Confusion and disorientation Code(s): F99 - MENTAL DISORDER, NOT OTHERWISE SPECIFIED Status: Acute Plan: -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 pt has been started on geodon with little effect. pt continues to be A&Ox1 and dependent on sitter to reorient and two person assistance for out of bed activities. -discontinue geodon at this time as no clinical benefit and pt at risk for noncompliance and medication SE -continue sitter and therapy -placement pending (2) Alcoholic hepatitis Code(s): K70.10 - ALCOHOLIC HEPATITIS WITHOUT ASCITES Status: Chronic QualifierTitle: Ascites presence: without ascites Qualified Code(s): K70.10 - Alcoholic hepatitis without ascites Plan: -continue with Librium taper (3) Atrial fibrillation with RVR Code(s): I48.91 - UNSPECIFIED ATRIAL FIBRILLATION Status: Resolved Plan: -EP and cardiology on board, recs greatly appreciated -pt initially planned for ablation this AM, however, reports that daughter called and decided against procedure -pt currently on PO amiodarone and has been NSR last 48 hrs with HR 90s, continue to monitor on telemetry -discussed case with specialists and plan is to discontinue amio at about time librium taper is discontinued -pt to be transferred to SNF for continued care, therapy, and med administration -pt not a candidate for nursing home amio or other meds per EP -pt had amio discontinued on 08/31 and has continued to be NSR -no recurrence of arrhythmia since d/c of amio (4) Cellulitis Code(s): L03.90 - CELLULITIS, UNSPECIFIED Status: Resolved QualifierTitle: Site of cellulitis of extremity: lower extremity Laterality: right Plan: -improved with completed 7 day course of Clindamycin - Plan Plan: disposition: Pt medically stable for discharge. CM assistance greatly appreciated. Letter generated for financial power of dental receptionist. <Atul Gauthier - Last Filed: 09/08/17 08:55> Attending Addendum - Attending Addendum Date/Time: 09/08/17 1233 I personally evaluated the patient and discussed the management with Dr. Gauthier. I agree with the History, Examination, Assessment and Plan documented above with any addition or exceptions noted below. Patient continues to require sitter for his safety, but otherwise the patient is very stable. 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 CM working on placement and we have provided necessary documentation to help daughter obtain patient's financial status. He has been stable for discharge home and there is no need for continued hospitalization. <Kamran Treviño - Last Filed: 09/08/17 12:34>
[2017-09-08] MEDS: Multivitamin W/ Minerals 1 TAB PO SCH (09:45)
[2017-09-08] MEDS: Calcium Carbonate 500 MG ChewTAB PO SCH (09:45)
[2017-09-08] MEDS: Tamsulosin HCl 0.4 MG CAP PO SCH (09:45)
[2017-09-08] MEDS: Enoxaparin Sodium 40 MG/0.4 ML SYRINGE SC SCH (09:46)
[2017-09-08] MEDS: Folic Acid 1 MG TAB PO SCH (09:46)
[2017-09-08] MEDS: Potassium Chloride 20 MEQ TAB PO SCH (09:46)
[2017-09-08] MEDS: Magnesium Oxide 400 MG TAB PO SCH (09:46)
--- NOTE | 2017-09-09 08:19 | PDOC.FM ---
Addendum entered and electronically signed by Atul Gauthier MD 09/09/17 11:06 : After revisiting patient, he is noted to not be agitated. He is pleasantly only oriented to self and this is not an acute change in his mentation. For these reasons, I do not believe the patient would benefit from other medications ( such as Seroquel). A trial of Geodon was attempted for treatment of possible Korsakoff psychosis but was not beneficial. Due to potential side effect profile and no clinical benefit, Geodon was discontinued. The patient continues to be medically stable for discharge. Original Note: - Subjective Subjective: Pt seen at bedside in NAD. KAYLA overnight. Sitter at bedside. - Objective MAR Reviewed: Yes Vital Signs & Weight: Vital Signs (12 hours) Temp Pulse Resp BP Pulse Ox 09/09/17 00:00 97.6 F 93 24 H 108/62 93 L Weight Admit Weight 83 kg Weight 80 kg Most Recent Monitor Data Heart Rate from ECG 85 NIBP 133/75 NIBP BP-Mean 101 Respiration from ECG 19 SpO2 96 I&O: 09/08/17 09/09/17 09/10/17 06:59 06:59 06:59 Intake Total 1050 1040 Output Total 425 Balance 625 1040 Result Diagrams: 08/19/17 02:43 08/31/17 04:26 <Atul Gauthier - Last Filed: 09/09/17 08:13> - Objective Vital Signs & Weight: Vital Signs (12 hours) Temp Pulse Resp BP BP BP Pulse Ox 09/09/17 08:00 98.2 F 97 18 96/94 H 96/94 H 94 L 09/09/17 00:00 97.6 F 93 24 H 108/62 93 L Weight Admit Weight 83 kg Weight 80 kg Most Recent Monitor Data Heart Rate from ECG 85 NIBP 133/75 NIBP BP-Mean 101 Respiration from ECG 19 SpO2 96 I&O: 09/08/17 09/09/17 09/10/17 06:59 06:59 06:59 Intake Total 1050 1040 Output Total 425 Balance 625 1040 Result Diagrams: 08/19/17 02:43 08/31/17 04:26 <Kamran Treviño - Last Filed: 09/09/17 11:45> Phys Exam - Physical Examination Constitutional: NAD HEENT: moist MMs Respiratory: no wheezing, clear to auscultation bilateral Cardiovascular: RRR, no significant murmur Gastrointestinal: soft, non-tender Musculoskeletal: no edema Neurological: moves all 4 limbs Deviation from normal: A&Ox1 <Atul Gauthier - Last Filed: 09/09/17 08:13> Dx/Plan (1) Confusion and disorientation Code(s): F99 - MENTAL DISORDER, NOT OTHERWISE SPECIFIED Status: Acute Plan: -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 pt continues to be A&Ox1 and dependent on sitter to reorient and two person assistance for out of bed activities. -continue sitter and therapy -pt has accepting facility without condition (2) Alcoholic hepatitis Code(s): K70.10 - ALCOHOLIC HEPATITIS WITHOUT ASCITES Status: Chronic QualifierTitle: Ascites presence: without ascites Qualified Code(s): K70.10 - Alcoholic hepatitis without ascites Plan: -continue with Librium taper (3) Atrial fibrillation with RVR Code(s): I48.91 - UNSPECIFIED ATRIAL FIBRILLATION Status: Resolved Plan: -EP and cardiology on board, recs greatly appreciated -pt initially planned for ablation this AM, however, reports that daughter called and decided against procedure -pt currently on PO amiodarone and has been NSR last 48 hrs with HR 90s, continue to monitor on telemetry -discussed case with specialists and plan is to discontinue amio at about time librium taper is discontinued -pt to be transferred to SNF for continued care, therapy, and med administration -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 CM assistance greatly appreciated. Pt now has accepting facility for continued care. At this time, will discharge patient to prevent any possible fraudulent charges for inpatient hospital care not being provided, as pt has not required inpatient hospital care over last week. <Atul Gauthier - Last Filed: 09/09/17 08:13> Attending Addendum - Attending Addendum Date/Time: 09/09/17 1138 I personally evaluated the patient and discussed the management with Dr. Gauthier. I agree with the History, Examination, Assessment and Plan documented above with any addition or exceptions noted below. Patient denies complaints this morning. He is in his chronic state of orientation, which is to person only. He requires frequent re-orienting to his location, time, and situation, but this has been constant. There is no acute change in his mentation and no indication for medical therapy to treat. Patient has previously had an extensive workup for his mentation, and it is highly likely to be the permanent damage due to chronic alcoholism. The patient is not agitated or aggressive. A trial of Geodon over the weekend did not lead to any improvement and has previously been discontinued several days ago. Due to his age and co-morbid conditions, a trial of another medication is not necessary and places patient at increased risk for adverse event. For approximately the the last 1 week and greater, there has been no change in the patient status and no intervention has been undertaken that necessitates inpatient care. It has been discussed with the family that this is the patient's new baseline and there is little to offer in terms of further medical treatment that will improve his condition. 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 Their hesitance to arrange financial arrangements as well as care for their father is not an indication to keep him in a hospital setting. He is being discharged to an accepting facility today as to keep him in the hospital any longer is both fraudulent to bill for medical services that are not provided /necessary as well as not a just cause of resources. <Kamran Treviño R - Last Filed: 09/09/17 11:45>
[2017-09-09] MEDS: Calcium Carbonate 500 MG ChewTAB PO SCH (08:43)
[2017-09-09] MEDS: Tamsulosin HCl 0.4 MG CAP PO SCH (08:44)
[2017-09-09] MEDS: Multivitamin W/ Minerals 1 TAB PO SCH (08:44)
[2017-09-09] MEDS: Folic Acid 1 MG TAB PO SCH (08:44)
[2017-09-09] MEDS: Magnesium Oxide 400 MG TAB PO SCH (08:44)
[2017-09-09] MEDS: Famotidine 20 MG TAB PO SCH ×2 (08:44→21:54)
[2017-09-09] MEDS: Enoxaparin Sodium 40 MG/0.4 ML SYRINGE SC SCH (08:45)
[2017-09-09] MEDS: Lorazepam 0.5 MG TAB PO PRN (21:53)
[2017-09-10] MEDS: Lorazepam 0.5 MG TAB PO PRN ×2 (02:57→08:09)
[2017-09-10] MEDS: Tamsulosin HCl 0.4 MG CAP PO SCH (08:09)
[2017-09-10] MEDS: Famotidine 20 MG TAB PO SCH (08:09)
[2017-09-10] MEDS: Folic Acid 1 MG TAB PO SCH (08:09)
[2017-09-10] MEDS: Magnesium Oxide 400 MG TAB PO SCH (08:10)
[2017-09-10] MEDS: Calcium Carbonate 500 MG ChewTAB PO SCH (08:10)
[2017-09-10] MEDS: Multivitamin W/ Minerals 1 TAB PO SCH (08:11)
[2017-09-10] MEDS: Enoxaparin Sodium 40 MG/0.4 ML SYRINGE SC SCH (08:11)
--- NOTE | 2017-09-10 09:02 | PDOC.FM ---
- Subjective Subjective: Pt seen at beside in NAD. KAYLA overnight. Sitter at bedside. Pt not agitated this AM and at his baseline, no complaints. - Objective MAR Reviewed: Yes Vital Signs & Weight: Vital Signs (12 hours) Temp Pulse Resp BP BP BP Pulse Ox 09/10/17 07:46 97.7 F 107 H 20 107/73 95 09/10/17 04:00 97.6 F 95 18 124/80 124/80 95 09/10/17 02:00 98.1 F 95 20 111/69 95 09/10/17 00:00 97 F L 99 18 104/62 94 L Weight Admit Weight 83 kg Weight 80 kg Most Recent Monitor Data Heart Rate from ECG 85 NIBP 133/75 NIBP BP-Mean 101 Respiration from ECG 19 SpO2 96 I&O: 09/09/17 09/10/17 09/11/17 06:59 06:59 06:59 Intake Total 1040 200 Balance 1040 200 Result Diagrams: 08/19/17 02:43 08/31/17 04:26 <Atul Gauthier M - Last Filed: 09/10/17 09:00> - Objective Vital Signs & Weight: Vital Signs (12 hours) Temp Pulse Resp BP BP BP Pulse Ox 09/10/17 08:00 97.7 F 107 H 20 107/73 95 09/10/17 07:46 97.7 F 107 H 20 107/73 95 09/10/17 04:00 97.6 F 95 18 124/80 124/80 95 09/10/17 02:00 98.1 F 95 20 111/69 95 09/10/17 00:00 97 F L 99 18 104/62 94 L Weight Admit Weight 83 kg Weight 80 kg Most Recent Monitor Data Heart Rate from ECG 85 NIBP 133/75 NIBP BP-Mean 101 Respiration from ECG 19 SpO2 96 I&O: 09/09/17 09/10/17 09/11/17 06:59 06:59 06:59 Intake Total 1040 200 Balance 1040 200 Result Diagrams: 08/19/17 02:43 08/31/17 04:26 <Kamran Treviño - Last Filed: 09/10/17 11:07> Phys Exam - Physical Examination Constitutional: NAD HEENT: moist MMs Respiratory: no wheezing, clear to auscultation bilateral Cardiovascular: RRR, no significant murmur Gastrointestinal: soft, non-tender Musculoskeletal: no edema Neurological: moves all 4 limbs Deviation from normal: A&Ox1 <Atul Gauthier - Last Filed: 09/10/17 09:00> Dx/Plan (1) Confusion and disorientation Code(s): F99 - MENTAL DISORDER, NOT OTHERWISE SPECIFIED Status: Acute Plan: -pt continues to be A&Ox1 and dependent on sitter to reorient and two person assistance for out of bed activities. -continue sitter and therapy -pt has accepting facility without condition (2) Alcoholic hepatitis Code(s): K70.10 - ALCOHOLIC HEPATITIS WITHOUT ASCITES Status: Chronic QualifierTitle: Ascites presence: without ascites Qualified Code(s): K70.10 - Alcoholic hepatitis without ascites Plan: -continue with Librium taper (3) Atrial fibrillation with RVR Code(s): I48.91 - UNSPECIFIED ATRIAL FIBRILLATION Status: Resolved Plan: -EP and cardiology on board, recs greatly appreciated -pt initially planned for ablation this AM, however, reports that daughter called and decided against procedure -pt currently on PO amiodarone and has been NSR last 48 hrs with HR 90s, continue to monitor on telemetry -discussed case with specialists and plan is to discontinue amio at about time librium taper is discontinued -pt to be transferred to SNF for continued care, therapy, and med administration -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 Family has appealed discharge process, currently awaiting to response from [facility]. <Atul Gauthier - Last Filed: 09/10/17 09:00> Attending Addendum - Attending Addendum Date/Time: 09/10/17 8414 I personally evaluated the patient and discussed the management with Dr. Gauthier. I agree with the History, Examination, Assessment and Plan documented above with any addition or exceptions noted below. Patient continues to be stable for discharge. no acute events overnight and no interventions necessitating hospitalized care. Sitter still required for his baseline confusion as a result of chronic alcohol abuse that has been unchanged despite full workup, medication trials, and re-orienting. Currently in appeals process with family over discharge and expect to hear decision today. He continues to be stable for discharge to facility and we will make that happen once allowed to do so. <Kamran Treviño - Last Filed: 09/10/17 11:07>
[2017-09-10 13:31] VITALS: BP 96/61; TEMP 97.4
--- NOTE | 2017-09-10 21:26 | DIS-2 ---
Please note this discharge summary includes the patient's stay from dates 2017 to 09/10/2017, for prior discharge summary notation, please see documentation by Dr. Stephanie Mcmahon. RESIDENT: Dr. Atul Gauthier. ADMITTING ATTENDING: Dr. Eric Simpson. DISCHARGE ATTENDING: Dr. Kamran Treviño. CONSULTATIONS: 1. Cardiology, Dr. Stacey Seaman. 2. Electrophysiology, Dr. Michele Meyer. 3. Case Management. PROCEDURES: None. PRIMARY DIAGNOSES: 1. Chronic dementia, likely worsened by acute alcohol withdrawals. 2. Alcoholic hepatitis. 3. Protein calorie malnutrition secondary to alcohol abuse. 4. Severe alcohol withdrawals with delirium tremens, resolved. 5. Rhabdomyolysis, resolved. 6. Right lower extremity cellulitis, resolved. 7. Paroxysmal atrial flutter, resolved. DISCHARGE MEDICATIONS: 1. Librium 20 mg p.o. b.i.d. for the next 5 days and then 10 mg p.o. b.i.d. for 7 days. 2. Metoprolol succinate 25 mg p.o. daily. 3. Thiamine 100 mg p.o. daily. 4. Tamsulosin 0.4 mg p.o. daily. 5. Potassium chloride 40 mEq p.o. b.i.d. with meals. 6. Multivitamin p.o. daily. 7. Magnesium oxide 400 mg p.o. daily. 8. Folate 1 mg p.o. daily. 9. Famotidine 20 mg p.o. b.i.d. HISTORY OF PRESENT ILLNESS AND HOSPITAL COURSE: Due to the patient's lengthy hospital stay, the patient was cared for by multiple physicians, please see previous documentation for the patient's hospital stay prior to 08/30/2017. As I took over care for the patient, the patient was to be taken for on ablation by electrophysiology, due to paroxysmal atrial flutter. At this time; however, the family decided against having any type of procedures done and elected to not proceed. The procedure was therefore canceled. Many conversations with electrophysiology revealed that the patient would likely not be a candidate for continued medical therapy with amiodarone due to his significant hepatic disease and likely poor compliance. After agusto ablation procedure was canceled, amiodarone was continued for a day, however, it was decided to be discontinued at electrophysiology's recommendations. The patient was already on a low dose and required no tapering of the amiodarone. The patient remained in normal sinus rhythm throughout the rest of his hospital stay including his time spent on telemetry. When the patient was deemed to continue be in normal sinus rhythm and stable from a cardiovascular standpoint, he was transferred to the medical floor. Regarding the patient's alcohol withdrawal, no further episodes of delirium tremens or signs or symptoms of alcohol withdrawal were noted. His mentation was noted to be at a baseline dementia with no specific agitation or aggressiveness noted. The patient did require frequent reorientation as he was normally only oriented to himself. The patient would occasionally answer questions appropriately, including on the day of discharge. The consideration that a Korsakoff psychosis was worsening the patient's dementia was considered and the patient was started on a trial of Geodon. The patient, however, made no improvement on Geodon and it was therefore discontinued due to potential side effect profile and his significant comorbidities. The patient throughout his hospital stay required a sitter due to his chronic dementia and disorientation and his potential fall risk as he would repeatedly tried to get out of bed without assist. Please see specific physical therapy notes, but in short, the patient would require a 2 person assist for ambulatory exercises. Regarding the patient's social situation and discharge planning, multiple attempts were made to discharge the patient to a step down facility as the patient no longer required inpatient medical treatment. The family was in disagreement with discharging the patient from the hospital. No medical interventions were made over the last 2 weeks of the patient's hospital stay as he was cardiovascularly stable with normal vital signs, no recurrence of any dysrhythmias, and displayed no signs or symptoms of any further alcohol withdrawals. The patient was deemed medically stable for discharge to a facility. Case management assistance was greatly appreciated to facilitate potential options for discharge planning. The patient eventually received approval from [facility] on 09/09/2017 with no conditions and the patient was discharged. The family, however, appealed the patient's discharge to [facility] and we were notified that the appeal was denied on 09/10/2017. The family at this time decided to take the patient to a different half-way facility with a sitter that the family would provide at their own expense. The patient's hospital course was otherwise uncomplicated. DISPOSITION: Guarded. DISCHARGE INSTRUCTIONS: 1. Location: [facility]. 2. Diet: Per speech therapy. 3. Activity: As tolerated with the assistance of physical therapy. 4. Followup: The patient was instructed to follow up with physicians at [facility] along with physical, occupational, and speech therapies. Please note, if the patient returns to [facility], he may benefit to be admitted by a different inpatient group due to family disagreements with our care of the patient. Greater than 30 minutes was spent preparing and coordinating this discharge. DEBBY
--- NOTE | 2017-09-11 19:55 | EKG ---
Test Reason : DIAGNOSING PURPOSES Blood Pressure : / mmHG Vent. Rate : 152 BPM Atrial Rate : 153 BPM P-R Int : 000 ms QRS Dur : 068 ms QT Int : 312 ms P-R-T Axes : 000 032 221 degrees QTc Int : 496 ms Atrial fibrillation with rapid ventricular response Abnormal ECG Confirmed by JOEL TRIVEDI ([id number]), editor news ALYSSA HANNAH ([id number]) on 09/11/2017 7:54:50 PM Referred By: Confirmed By:JOEL TRIVEDI
--- NOTE | 2017-10-23 13:55 | EKG ---
Test Reason : STAT Blood Pressure : / mmHG Vent. Rate : 116 BPM Atrial Rate : 116 BPM P-R Int : 136 ms QRS Dur : 074 ms QT Int : 330 ms P-R-T Axes : 055 032 186 degrees QTc Int : 458 ms Sinus tachycardia Possible Left atrial enlargement Nonspecific ST and T wave abnormality Abnormal ECG No previous ECGs available Confirmed by KAREN HERNÁNDEZ, JESSICA ([id number]) on 10/23/2017 1:55:19 PM Referred By: STEFFANIE Confirmed By:JESSICA JONES MD
== END 2017-09-10 16:04 | DRG 896 ==
LOC: ERS 18:24 → CCU 22:20 → 2NO 08-26 02:16 → T4-B 09-02 17:45
PROVIDERS: ADMIT Family Medicine; ATTEND Family Medicine
DX: F10.231 Alcohol dependence with withdrawal delirium (principal); G92 Toxic encephalopathy; N17.9 Acute kidney failure, unspecified; E87.2 Acidosis; E46 Unspecified protein-calorie malnutrition; L03.115 Cellulitis of right lower limb; F10.26 Alcohol dependence with alcohol-induced persisting amnestic disorder; I48.91 Unspecified atrial fibrillation; E87.1 Hypo-osmolality and hyponatremia; M62.82 Rhabdomyolysis; I48.92 Unspecified atrial flutter; E78.00 Pure hypercholesterolemia, unspecified; E86.0 Dehydration; E87.6 Hypokalemia; Y90.4 Blood alcohol level of 80-99 mg/100 ml; K70.10 Alcoholic hepatitis without ascites; W18.30XA Fall on same level, unspecified, initial encounter; F03.90 Unspecified dementia, unspecified severity, without behavioral disturbance, psychotic disturbance, mood disturbance, and anxiety; Z68.26 Body mass index [BMI] 26.0-26.9, adult; I25.10 Atherosclerotic heart disease of native coronary artery without angina pectoris; I10 Essential (primary) hypertension
CPT/HCPCS: 36415; 70450; 71045; 72125; 76700; 80048; 80053; 80306; 80307; 81003; 81015; 82140; 82330; 82550; 82553; 82652; 83605; 83735; 83880; 84100; 84443; 84484; 85025; 85610; 85730; 86705; 86708; 86780; 86803; 87086; 87340; 87389; 90471; 90670; 90682; 93005; 93010; 93306; 93970; 94640; 96365; 96366; 96375; 96376; A4216; G0008; G0009; G8978-GP-CL; G8978-GP-CM; G8979-GP-CI; G8996-GN-CJ; G8997-GN-CI; J0282; J1160; J1650; J1940; J2060; J3360; J3411; J3475; J7042; J7050; J7070; J7620; Q2036

== ENCOUNTER 2017-09-20 18:33 | Inpatient (IN) | payer MEDICARE ==
[~2017-09-20 18:33] MED LIST: ISOVUE-370 76%-LOCM 1 ML ONE
[2017-09-20 19:37] LABS: #Basophils 0.1 thou/uL (0.0-0.2); #Eosinphils 0.1 thou/uL (0.0-0.7); #Lymphocytes 1.6 thou/uL (1.20-3.40); #Monocytes 0.7 thou/uL (0.11-0.59); #Neutrophils 4.6 thou/uL (1.40-6.50); %Basophils 0.9 % (0.0-1.0); %Eosinophils 1.6 % (0.0-10.0); %Monocytes 9.7 % (0.0-10.0); %Neutrophils 64.8 % (42.0-75.0); Hemoglobin 10.4 g/dL (14.0-18.0); Mean Corpuscular HGB CONC 32.4 g/dL (32.0-36.0); Mean Corpuscular Hemoglobin 31.1 pg (27.0-31.0); Mean Platelet Volume 7.4 fL (7.4-10.4); Platelet Count 314 thou/uL (130-400); RBC Distribution Width 12.6 % (11.5-14.5); Red Blood Cell (RBC) Count 3.35 mill/uL (4.70-6.10)
[2017-09-20 19:52] LABS: ALT (SGPT) 24 U/L (8-55); AST (SGOT) 21 U/L (5-34); Albumin 3.4 g/dL (3.4-4.8); Alkaline Phosphatase 72 U/L (40-150); Anion Gap 13 mmol/L (10-20); BUN (Urea Nitrogen) 17 mg/dL (8.4-25.7); Bilirubin, Total 0.3 mg/dL (0.2-1.2); Calc. Creatinine Clearance 0 mL/min (70-130); Calcium 9.1 mg/dL (7.8-10.44); Carbon Dioxide 24 mmol/L (23-31); Chloride 103 mmol/L (98-107); Estimated GFR-MDRD 78; Glucose 109 mg/dL (83-110); Potassium 3.9 mmol/L (3.5-5.1); Protein, Total 6.4 g/dL (5.8-8.1); Sodium 136 mmol/L (136-145)
[2017-09-20 19:57] LABS: CKMB 4.5 ng/mL (0-6.6); Troponin I 0.011 ng/mL (< 0.028)
--- NOTE | 2017-09-20 21:40 | RAD ---
RADIOGRAPH CHEST 1 VIEW: Date: 09-20-17 Time: 7:50 P.M. HISTORY: 72-year-old male with atrial flutter. COMPARISON: 08-22-17 FINDINGS: New finding of subsegmental atelectasis at the right medial lung base. Lateral and superior to that, there is another new finding of a moderate sized region of increased attenuation in the right mid to lower lung zone. The rest of the visualized lung cook are clear. Lungs are hypoinflated. No pneumot horax. Ectasia of the thoracic aorta. IMPRESSION: 1. In addition to subsegmental atelectasis at the right lung base, there is another nonspecific regio n of faintly increased attenuation at the right lower lung zone. 2. Ectasia and tortuosity of the thoracic aorta. JAVI POS: JOSE
--- NOTE | 2017-09-20 22:35 | CT ---
CTA THORAX WITH CONTRAST: (Computed Tomographic Angiography, chest(noncoronary) with contrast material, and image postprocessin g) (PE protocol) DATE: 09-20-17 TIME: 9:47 P.M. HISTORY: 72-year-old male with atrial flutter. COMPARISON: None. TECHNIQUE: IV injection of iodinated contrast. Scan acquisition timing attempted to coincide with iodinated contrast bolus reaching maximal density in pulmonary arteries. 3D MIP reconstructions. FINDINGS: Images are degraded by patient breathing motion artifact. There is no evidence of pulmonary thromboem bolism. No thoracic aortic aneurysm or dissection. No pleural effusion or pneumothorax. Left lung is clear. There is an obliquely oriented plate-like region of airspace density in the right lower lobe, and a transversely oriented plate-like region of airspace density in the right middle lobe, both cons istent with subsegmental atelectasis. There are also extensive ground glass densities in the right lo wer lobe and posterior segment of right upper lobe. No thoracic aortic aneurysm or dissection. There is ectasia, tortuosity, and mild to moderate atherosclerosis of the thoracic aorta. There is elevatio n of the right hemidiaphragm, which is probably due to the right sided subsegmental atelectasis. IMPRESSION: 1. Moderately large regions of subsegmental atelectasis in the right lower lobe and right middle lobe . 2. Nonspecific ground glass pulmonary densities in the right lower lobe and right upper lobe, of unce rtain etiology. 3. No pulmonary thromboembolism. claudia POS: JOSE
[2017-09-20] MEDS ORDERED: Piperacillin/Tazobactam 4.5 GM in Sodium Chloride 0.9% 100 ML IVPB SCH (23:00)
[2017-09-21] MEDS ORDERED: Lorazepam 2 MG/ML VIAL SLOW IVP SCH (01:00)
[2017-09-21] MEDS ORDERED: Piperacillin/Tazobactam 3.375 GM in Sodium Chloride 0.9% 100 ML IVPB SCH (06:00)
[2017-09-21] MEDS: Magnesium Oxide 400 MG TAB PO SCH (10:09)
[2017-09-21] MEDS: Multivitamin W/ Minerals 1 TAB PO SCH (10:09)
[2017-09-21] MEDS: Folic Acid 1 MG TAB PO SCH (10:09)
--- NOTE | 2017-09-21 12:11 | PDOC.FPRHP ---
- History of Present Illness Chief Complaint: tachycardia History of Present Illness: This 72 yo M presents from [facility] for tachycardia, upon presentation to ED he was found to have PNA. PMH includes recent extended hopsitalization for management of atrial flutter, alcohol withdrawal, and goals of care. He is arousable, knows his name and follows commands but does not answer questions appropriately. Unable to take history 2/2 mental status. ED Course: Admitted for eval of PNA Vanc, Zosyn, levo in ED - Allergies/Adverse Reactions Allergies Allergy/AdvReac Type Severity Reaction Status Date / Time No Known Drug Allergies Allergy Verified 08/19/17 01:20 - Home Medications Medication Instructions Recorded Confirmed Type Famotidine [Pepcid] 20 mg PO BID tab 08/30/17 Rx Folic Acid [Folvite] 1 mg PO DAILY tab 08/30/17 Rx Magnesium Oxide 400 mg PO DAILY tab 08/30/17 Rx Multivitamin W/ Minerals 1 tab PO DAILY tab 08/30/17 Rx [Theragran M] Potassium Chloride [K-Dur] 40 meq PO BID-WM tab 08/30/17 Rx Tamsulosin HCl [Flomax] 0.4 mg PO DAILY cap 08/30/17 Rx Thiamine 100 mg PO DAILY tab 08/30/17 Rx Metoprolol Succinate [Toprol XL] 25 mg PO DAILY tab 09/09/17 Rx chlordiazePOXIDE HCl [Librium] 20 mg PO BID 5 Days cap 09/09/17 Rx chlordiazePOXIDE HCl [Librium] 10 mg PO BID 7 Days cap 09/14/17 Rx - History PMHx: dementia, alcoholic hepatitis, malnutrition, alcohol withdrawal, rhabdomyolysis, cellulitus, paroxysmal a flutter PSHx: unable to obtain FHx: unable to obtain Social: alcoholism noted from review of records, unable to obtain history - Review of Systems ROS unobtainable: due to mental status - Vital signs BP: [] HR: [] RR: [] Tmax: [] Pox: []% on [] Wt: [] - Physical Exam Constitutional: NAD HEENT: normocephalic and atraumatic, EOMI, conjunctiva clear, no scleral icterus Neck: supple Heart: RRR, normal S1/S2 Lungs: good air movement, no rales/rhonchi, no wheezing -Lungs: mild congestion in right upper quadrant Abdomen: soft, non-tender, bowel sounds present, no masses/distention Musculoskeletal: normal structure, ROM grossly normal -Musculoskeletal: R leg objectively larger than L FMR H&P: Results - Labs Result Diagrams: 09/20/17 19:19 09/20/17 19:19 Lab results: WBC 7.0 thou/uL (4.8-10.8) 09/20/17 19:19 Hgb 10.4 g/dL (14.0-18.0) L 09/20/17 19:19 Hct 32.2 % (42.0-52.0) L 09/20/17 19:19 MCV 96.0 fl (80.0-94.0) H 09/20/17 19:19 Plt Count 314 thou/uL (130-400) 09/20/17 19:19 Neutrophils % 64.8 % (42.0-75.0) 09/20/17 19:19 Sodium 136 mmol/L (136-145) 09/20/17 19:19 Potassium 3.9 mmol/L (3.5-5.1) 09/20/17 19:19 Chloride 103 mmol/L (98-107) 09/20/17 19:19 Carbon Dioxide 24 mmol/L (23-31) 09/20/17 19:19 BUN 17 mg/dL (8.4-25.7) 09/20/17 19:19 Creatinine 0.94 mg/dL (0.6-1.3) 09/20/17 19:19 Glucose 109 mg/dL (83-110) 09/20/17 19:19 Lactic Acid 1.8 mmol/L (0.5-2.2) 09/20/17 19:14 Calcium 9.1 mg/dL (7.8-10.44) 09/20/17 19:19 Total Bilirubin 0.3 mg/dL (0.2-1.2) 09/20/17 19:19 AST 21 U/L (5-34) 09/20/17 19:19 ALT 24 U/L (8-55) 09/20/17 19:19 Alkaline Phosphatase 72 U/L (40-150) 09/20/17 19:19 CK-MB (CK-2) 4.5 ng/mL (0-6.6) 09/20/17 19:19 B-Natriuretic Peptide 565.6 pg/mL (0-100) H 09/20/17 19:19 Serum Total Protein 6.4 g/dL (5.8-8.1) 09/20/17 19:19 Albumin 3.4 g/dL (3.4-4.8) 09/20/17 19:19 FMR H&P: A/P - Problem List (1) HCAP (healthcare-associated pneumonia) Current Visit: Yes Status: Acute Code(s): J18.9 - PNEUMONIA, UNSPECIFIED ORGANISM (2) Alcoholic hepatitis Current Visit: No Status: Chronic Code(s): K70.10 - ALCOHOLIC HEPATITIS WITHOUT ASCITES Qualifiers: Ascites presence: without ascites Qualified Code(s): K70.10 - Alcoholic hepatitis without ascites (3) Atrial fibrillation with RVR Current Visit: No Status: Resolved Code(s): I48.91 - UNSPECIFIED ATRIAL FIBRILLATION - Plan # HCAP - recent hospitalization, admitted from [facility] - suspected consolidation R upper lobe - Vanc, Zosyn - blood cultures pending - ST eval for aspiration # Paroxysmal A Flutter - currently NSR with rate 80-90, occasional runs of flutter on tele - family refused ablation last admission - amiodarone stopped during last admission 08/06 alcoholic hepatitis - Metoprolol - Cardiology consulted, appreciate recs - Echo # HFpEF - Echo 08/22 shows EF 60-65% - not in exacerbation # RLE swelling - check doppler # Dementia - frequent re-orientation # Code - full # PPx - lovenox FMR H&P: Upper Level - Pertinent history Patient is a 72yo CM with PMHx of Aflutter who was originally admitted by [facility] but transferred this AM as he was under our care during his previous hospitalization this month. Patient not able to provide history. Per ED records , patient presents from ID due to elevated HR in the 140s and new leg swelling. Upon arrival to ED, patient with a HR of 109. CXR done showing RT sided PNA and given Zosyn, Levaquin and Vanc in the ED. - Pertinent findings T 97.6 HR 109 RR 26 BP 108/73 O2 100% on RA Gen: NAD, A&O x1 (at baseline) HEENT: PERRLA Heart: S1 S2, RRR Lungs: slight RT sided crackles Abd: nt/nd/bs+ Ext: RLE (-) Homans, no erythema, slight edema - Plan Date/Time: 09/21/17 1211 1. HAP vs. Aspiration PNA: Patient recently hospitalized from 08/18-09/10 and currently resides at ID. Given Zosyn, Levaquin, Vanc in the ED. Cont Zosyn and Vanc. Blood cultures pending. Obtain swallow study and consult speech for possible aspiration. 2. Paroxysmal Aflutter: Patient with elev HR in the 140s at ID. Upon arrival to the ED, HR max at 109 and not given any medications. EKG showing Aflutter. Patient recently hospitalized due to paroxysmal Aflutter. At that time, family decided against have any procedures done. In addition, patient was on amiodarone , but was discontinued per EP recommendations due to his significant hepatic disease and likely poor compliance. Patient spontaneously converted into NSR at that time and currently in NSR. Cont to monitor on tele. Cont home metoprolol. No intervention at this time and likely stable for d/c back to ID in 1-2 days. 3. RLE swelling: likely resolving RLE cellulitis. No erythema or tenderness to palpation. Obtain Doppler to r/o DVT as patient is bedbound. 4. Chronic dementia: A&Ox1, currently at baseline. 5. Hx of alcoholic hepatitis: previous transaminitis resolved. 6. HFpEF (60-65%): Echo done on 08/2017. Not in acute exacerbation. 7. Diet: HH 8. PPx: Eulalia Brunson, have evaluated this patient and agree with findings/ plan as outlined by international student advisor resident. Pertinent changes/additions are listed here.
[2017-09-21] MEDS ORDERED: Vancomycin HCl 1 GM in Premix Bag 1 BAG IVPB SCH (13:00)
--- NOTE | 2017-09-21 13:40 | ULT ---
RIGHT LOWER EXTREMITY VENOUS DOPPLER: HISTORY: Evaluate for DVTs. History of swelling. COMPARISON: None. TECHNIQUE: Real-time leroy-scale color Doppler and spectral analysis of the right lower extremity venous system w as performed with the linear array transducer. FINDINGS: The common femoral, femoral, and proximal portions of the greater saphenous and deep femoral veins, a s well as the popliteal and posterior tibial veins, were interrogated. Normal flow, augmentation, and compression. IMPRESSION: No deep venous thrombosis. POS: JOSE
[2017-09-21] MEDS: Piperacillin/Tazobactam 3.375 GM in Sodium Chloride 0.9% 100 ML IVPB SCH ×2 (17:50→23:42)
[2017-09-22] MEDS ORDERED: Vancomycin HCl 1 GM in Premix Bag 1 BAG IVPB SCH (01:00)
[2017-09-22 04:58] LABS: #Basophils 0.1 thou/uL (0.0-0.2); #Eosinphils 0.2 thou/uL (0.0-0.7); #Lymphocytes 1.5 thou/uL (1.20-3.40); #Monocytes 0.7 thou/uL (0.11-0.59); #Neutrophils 4.2 thou/uL (1.40-6.50); %Eosinophils 2.4 % (0.0-10.0); %Lymphocytes 23.2 % (21.0-51.0); %Monocytes 9.9 % (0.0-10.0); %Neutrophils 63.6 % (42.0-75.0); Hemoglobin 9.7 g/dL (14.0-18.0); Mean Corpuscular HGB CONC 32.6 g/dL (32.0-36.0); Mean Corpuscular Hemoglobin 30.7 pg (27.0-31.0); Mean Corpuscular Volume 94.1 fl (80.0-94.0); Mean Platelet Volume 6.6 fL (7.4-10.4); Platelet Count 318 thou/uL (130-400); RBC Distribution Width 12.5 % (11.5-14.5); Red Blood Cell (RBC) Count 3.17 mill/uL (4.70-6.10); White Blood Cell (WBC) Count 6.6 thou/uL (4.8-10.8)
[2017-09-22] MEDS: Vancomycin HCl 1 GM in Premix Bag 1 BAG IVPB SCH ×2 (05:05→17:03)
[2017-09-22 05:16] LABS: Anion Gap 12 mmol/L (10-20); BUN (Urea Nitrogen) 9 mg/dL (8.4-25.7); Calc. Creatinine Clearance 69 mL/min (70-130); Calcium 9.1 mg/dL (7.8-10.44); Carbon Dioxide 25 mmol/L (23-31); Chloride 104 mmol/L (98-107); Estimated GFR-MDRD 71; Glucose 88 mg/dL (83-110); Potassium 3.7 mmol/L (3.5-5.1); Sodium 137 mmol/L (136-145)
[2017-09-22] MEDS: Piperacillin/Tazobactam 3.375 GM in Sodium Chloride 0.9% 100 ML IVPB SCH ×4 (06:13→23:26)
--- NOTE | 2017-09-22 08:52 | PDOC.FM ---
- Subjective Subjective: This morning patient is AxOx1. He denies any chest pain or shortness of breath. He refused physical exam. I will check back later. - Objective Vital Signs & Weight: Vital Signs (12 hours) Temp Pulse Resp BP Pulse Ox 09/22/17 07:45 98.2 F 85 16 117/67 91 L 09/22/17 04:00 98.4 F 86 20 144/83 H 91 L 09/21/17 22:00 97 F L 92 20 I&O: 09/21/17 09/22/17 09/23/17 06:59 06:59 06:59 Intake Total 200 Output Total 850 Balance -650 Result Diagrams: 09/22/17 04:46 09/22/17 04:46 Phys Exam - Physical Examination Constitutional: NAD HEENT: PERRLA, moist MMs Neck: full ROM -: Patient denied physical exam Dx/Plan (1) HCAP (healthcare-associated pneumonia) Code(s): J18.9 - PNEUMONIA, UNSPECIFIED ORGANISM Status: Acute (2) Alcoholic hepatitis Code(s): K70.10 - ALCOHOLIC HEPATITIS WITHOUT ASCITES Status: Chronic Qualifiers: Ascites presence: without ascites Qualified Code(s): K70.10 - Alcoholic hepatitis without ascites (3) Atrial fibrillation with RVR Code(s): I48.91 - UNSPECIFIED ATRIAL FIBRILLATION Status: Resolved - Plan Plan: # HCAP - recent hospitalization, admitted from [place] - suspected consolidation R upper lobe - Vanc, Zosyn - blood cultures pending - ST eval for aspiration # Paroxysmal A Flutter - currently NSR with rate 80-90, 1 run of a flutter overnight, no elevated HR - family refused ablation last admission - amiodarone stopped during last admission 2/ alcoholic hepatitis - Metoprolol - Cardiology consulted, appreciate recs - Echo # HFpEF - Echo 08/22 shows EF 60-65% - not in exacerbation # RLE swelling - doppler r/o CVT # Dementia - frequent re-orientation # difficult social situation - daughter Michelle from [place] has many demands - states she will not allow d/c until Neuro has seen patient - will repeat CT head to palliate daughter - Discussed with neuro, this is outpatient workup # Code - full # PPx - lovenox Dispo: will try for d/c tomorrow after cultures resulted, cards consult
[2017-09-22] MEDS ORDERED: Enoxaparin Sodium 40 MG/0.4 ML SYRINGE SC SCH (09:00)
--- NOTE | 2017-09-22 09:47 | CON ---
DATE OF CONSULTATION: 09/21/2017 INDICATION FOR CONSULTATION: This is a 72-year-old patient with a history of atrial flutter and tach ycardia. HISTORY OF PRESENT ILLNESS: This is a very unfortunate 72-year-old gentleman has a history of alcoho lic encephalopathy and also had a history of atrial flutter. He recently was in the hospital and was for an extensive stay and then he was transferred to a residential facility. Apparently, he was fo und to have some tachycardia in the residential and presented again to the emergency room. At that time, he was found to have what appears to be a pneumonia. At this time does not have any significan t complaints of shortness of breath or coughing as I am examining the patient, he offered a very solo le information. He does continue to have some dementia or either some alcoholic encephalopathy, but at this time, he appears to be relatively stable overall. He did have, what appeared to be atrial fl utter on admission. However, he has since converted back to sinus rhythm and offers no specific comp laints; however, he is unreliable as a historian. At this time, there were no significant complaints on his last admission here. His family refused for him to undergo an ablation by the electrophysiol ogist for his atrial fibrillation or flutter. PAST MEDICAL HISTORY: Significant for the alcoholic encephalopathy, also has alcoholic hepatitis, hi story of rhabdomyolysis from the last visit due to alcohol toxicity essentially in falls. He is on t he floor for quite some time and had significant lower extremity edema and cellulitis. He has had a history of atrial flutter, some history of dementia this is due to alcoholic related encephalopathy. SOCIAL HISTORY: Apparently this time, he resides in a residential and no family members available. MEDICATIONS: Include at least prior to admission included Pepcid, Folvite, multivitamins with Therag ran with minerals. He is on Flomax, K-Dur, Pepcid, thiamine, Toprol-XL, and Librium. ALLERGIES: There are no known drug allergies that we are aware of. REVIEW OF SYSTEMS: Unobtainable. PHYSICAL EXAMINATION: GENERAL: Reveals an elderly gentleman, who appears somewhat demented or evidence of encephalpathy, w ho is in no acute distress at this time. VITAL SIGNS: Blood pressure was 122/68, heart rate is 90 and regular, respiratory rate 16, O2 satura tions are 92%, and temperature is 99. HEENT: Shows the head to be normocephalic, atraumatic. I did not hear any significant bruits. LUNGS: His chest is clear to auscultation at this time at least anteriorly. He does not agree to ta ke deep breath for at least he failed to do so. CARDIOVASCULAR: Exam reveals a regular rate and rhythm. There were no significant murmurs, heaves, thrills, bruits or rubs noted. CHEST: He did have some decreased breath sounds in the bases. However, again he does not have a goo d inspiratory effort. ABDOMEN: Soft and nontender. Positive bowel sounds are present. EXTREMITIES: Show no clubbing or cyanosis. He did have mild pedal edema. Pedal pulses are present. NEUROLOGIC: Again, the patient appears to have encephalopathy or either some degree of dementia. EKG on arrival revealed what appeared to be atrial flutter, at this time, he has a sinus rhythm. On his last admission, he also been on amiodarone for a short while. However, this was discontinued aft er he did have some episodes of hepatic abnormalities and most likely this was due to alcohol-induced also but due to decrease in the hepatic function, it was felt that the amiodarone would not be a goo d choice for this gentleman and I believe he was only on diltiazem, but he seems to be tolerating kim te well. This becomes a somewhat difficult situation, if the family is unwilling for the patient to undergo EP evaluation and flutter ablation as a flutter ablation would be the best solution for this gentleman in order to control the atrial flutter and hopefully decrease the risk of this returning wi th rapid ventricular response. IMPRESSION: 1. Atrial flutter with rapid ventricular response, which converted to sinus rhythm. When the family is available, then we can certainly try to approach to begin as whether or not that would be agreeab le for him to undergo ablation of the atrial flutter. He is not on any oral anticoagulation due to h is high risk of falls and also due to his history of alcohol abuse and liver abnormalities. 2. Anemia. Hemoglobin was 10.4. This most likely is due to anemia of chronic disease. His renal f unction appears to be stable with a creatinine of 0.94. 3. Slight elevation of the BNP, which may be due to overwhelming to his recent tachycardia with the atrial flutter and also he may have some mild diastolic dysfunction. He can repeat the echocardiogra m for evaluation of left ventricular systolic function at this time, further recommendations may depe nd on the results of that study. If not, could add a mild diuretic. We will be more than happy to tena sanchez to follow the patient with you, but further discussions with the family would be advantageous and then if they are agreeable, he can undergo a repeat evaluation by the supervisor covering and lining and po ssible ablation of the atrial flutter.
[2017-09-22] MEDS: Multivitamin W/ Minerals 1 TAB PO SCH (10:40)
[2017-09-22] MEDS: Magnesium Oxide 400 MG TAB PO SCH (10:40)
[2017-09-22] MEDS: Folic Acid 1 MG TAB PO SCH (10:40)
[2017-09-22] MEDS: Tamsulosin HCl 0.4 MG CAP PO SCH (10:41)
--- NOTE | 2017-09-22 10:58 | PDOC.EVN ---
Event Note - Event Note Event Note: Spoke with daughter Laura about plan of care and disposition. Laura states that father has been showing signs of dementia for "30 years." She states he was "drinking heavily" for 30 years and they could not tell whether it was alzheimers or "the alcohol" during that entire period. She states that Alzheimer 's dementia runs in their family and she is sure that he has it as well. Regarding disposition patient states that there are certain half-way that were not friendly enough nor clean enough which is why family refused discharge to these locations during the last admission. Family was informed that CM would come talk to them about half-way to which referrals have been placed because the half-way he came into the hospital from refused to have him come back. Patient is in understanding.
--- NOTE | 2017-09-22 11:39 | ADD-PRG ---
DATE OF SERVICE: 09/21/2017 This is an addendum to the note of Dr. Demarco as of his note 09/21/2017. Clayton Ramirez is a 72-year-old m an who was admitted with intermittent atrial fib/flutter as well as pneumonia. In the past, he has r efused ablation for his flutter. He is currently on a beta rupal. He was also noted to have chest x-ray, evidence of possible pneumonia which given his recent snf stay qualifies as healthca re associated. He is on appropriate antibiotic therapy. He is in no distress. I have read and agree with the history and physical of Dr. Harrison Demarco as of 09/21/2017.
--- NOTE | 2017-09-22 11:40 | ADD-PRG ---
DATE OF SERVICE: 09/22/2017 This is an addendum to the note of Dr. Harrison Demarco. Mr. Ramirez is being very uncooperative this mornin g. He is not taking his medications as instructed. He is refusing to be examined. His daughter was in the room and is trying to convince him to be more cooperative. In the event, clinically, he is s table with his intermittent atrial flutter and pneumonia.
--- NOTE | 2017-09-22 13:35 | CT ---
HEAD CT WITHOUT CONTRAST: Date: 09/22/17 COMPARISON: 08/18/17. HISTORY: Fall, dementia, pain. TECHNIQUE: Serial axial CT imaging at 5 mm intervals from vertex through skull base without contrast. FINDINGS: The visualized paranasal sinuses and mastoid air cells are well aerated. There is no displaced calvar ial fracture. No intracranial hemorrhage, midline shift, mass effect, or ventricular enlargement. The re is moderate diffuse cerebral volume loss. There is periventricular hypodensity suggesting small ve ssel disease. IMPRESSION: Cerebral volume loss with no intracranial hemorrhage or displaced calvarial fracture. POS: JOSE
[2017-09-22 17:06] LABS: Bilirubin Negative (Negative); Blood, Urine Negative (Negative); Clarity CLEAR (Clear); Glucose, Urine (Dipstick) Negative (Negative); Leukocyte Negative (Negative); Nitrite Negative (Negative); Protein, Urine (Dipstick) Negative (Neg-Trace); Specific Gravity, Urine 1.023 (1.002-1.036); Urobilinogen 0.2 mg/dL (0.2-1.0); pH, Urine 6.5 (5.0-9.0)
[2017-09-22 17:09] LABS: Bacteria/HPF None Seen HPF (None Seen); Hyaline Casts/LPF 0-3 HYALINE CAST LPF (0-3 Hyaline); Pathc Cast-AUWi Flag 0.14 (0-2.49); RBC/HPF 0-3 HPF (0-3); Squamous Epithelial 0-3 HPF (0-3); WBC/HPF 0-3 HPF (0-3)
[2017-09-22] MEDS: Haloperidol Lactate 5 MG/ML VIAL IM PRN ×2 (18:30→20:29)
[2017-09-22] MEDS ORDERED: Haloperidol Lactate 5 MG/ML VIAL SLOW IVP SCH (23:15)
[2017-09-23] MEDS ORDERED: Haloperidol Lactate 5 MG/ML VIAL SLOW IVP SCH ×2 (03:00→11:15)
[2017-09-23] MEDS: Vancomycin HCl 1 GM in Premix Bag 1 BAG IVPB SCH (04:51)
[2017-09-23 06:10] LABS: #Eosinphils 0.1 thou/uL (0.0-0.7); #Lymphocytes 1.3 thou/uL (1.20-3.40); #Monocytes 0.6 thou/uL (0.11-0.59); #Neutrophils 4.7 thou/uL (1.40-6.50); %Basophils 0.6 % (0.0-1.0); %Lymphocytes 19.6 % (21.0-51.0); %Neutrophils 68.8 % (42.0-75.0); Hemoglobin 9.8 g/dL (14.0-18.0); Mean Corpuscular HGB CONC 32.7 g/dL (32.0-36.0); Mean Corpuscular Hemoglobin 30.6 pg (27.0-31.0); Mean Corpuscular Volume 93.6 fl (80.0-94.0); Mean Platelet Volume 6.6 fL (7.4-10.4); Platelet Count 319 thou/uL (130-400); RBC Distribution Width 12.5 % (11.5-14.5); White Blood Cell (WBC) Count 6.8 thou/uL (4.8-10.8)
[2017-09-23] MEDS: Piperacillin/Tazobactam 3.375 GM in Sodium Chloride 0.9% 100 ML IVPB SCH (08:26)
[2017-09-23] MEDS: Folic Acid 1 MG TAB PO SCH (08:31)
[2017-09-23] MEDS: Magnesium Oxide 400 MG TAB PO SCH (08:31)
[2017-09-23] MEDS: Multivitamin W/ Minerals 1 TAB PO SCH (08:31)
--- NOTE | 2017-09-23 08:31 | PRG ---
DATE OF SERVICE: 09/22/2017 REFERRING PHYSICIAN: Stacey Seaman M.D. I am seeing Mr. Ramirez at our [facility] telemetry floor as an electrophysiology follow up n ote with the following problems: 1. Repeat recurrent atrial flutter. A. Prior admission 08/26/2017 with newly found atrial flutter with rapid ventricular response, conve rted to sinus rhythm, on IV diltiazem and amiodarone. 2. History of fall and confusion, possible due to delirium tremens and ETOH related. 3. At that point, rhabdomyolysis with elevated CK, now resolved. 4. Remote history of coronary artery disease with possible left heart catheterization in the remote [place] in the past. 5. 2D echo in 08/2017 reveals normal LVEF. 6. History of lower extremity edema with possible cellulitis, now resolved. 7. History of hypercholesterolemia. ALLERGIES: None. MEDICATIONS: This admission include Pepcid, Folvite, multivitamins, Theragran, Flomax, K-Dur, thiami ne, Toprol-XL and Librium. SUBJECTIVE: Mr. Ramirez is a poor historian. Most history was obtained from the chart. It seems thi s man was admitted in August with extended hospitalization with lower extremity edema, cellulitis, rhabdomyolysis, especially newly found atrial flutter. The atrial flutter responded well to amiodaro ne, but eventually amiodarone was stopped and hence his history of alcoholic liver disease. He left the hospital in sinus rhythm after family refusing atrial flutter ablation. He was readmitted again with atrial fibrillation with atrial flutter with rapid rate. He then spontaneously converted to sin us rhythm, currently is in sinus rhythm. He cannot void specific complaints, very poor historian. He has also had history of right upper lobe consolidation, felt to have hospital acquired pneumonia. He is receiving antibiotic treatment for t hat. On the other hand, he has no recurrent cough, fever, chills, or white cell count elevation. SOCIAL HISTORY/PERSONAL HISTORY/FAMILY HISTORY: Reviewed and unchanged from last note in August. OBJECTIVE: VITAL SIGNS: Blood pressure 142/104, heart rate 89, respiration 16, temperature 97.7 degrees Fahrenh eit. GENERAL: He is an alert, oriented x1 man in mild distress. NECK: Supple. Jugular veins not distended. CHEST: Coarse without crackles. CARDIOVASCULAR: Heart sounds are regular to rate and rhythm. No murmur or gallop. ABDOMEN: Benign. Bowel sounds positive. EXTREMITIES: Lower extremities without edema, clubbing or cyanosis. DATABASE: EKGs reviewed. Initial EKG reveals atrial flutter which again isthmus dependent atr ial flutter. Subsequent EKGs reveal sinus rhythm, narrow QRS. DATA: White blood cell count 6.6, hemoglobin 9.7, platelet count is 318. Sodium 137, potassium 3.7, BUN is 9, creatinine 1.03. ASSESSMENT AND PLAN: Mr. Ramirez is a 72-year-old man with prior history of atrial flutter with rapid rates, which then terminated with amiodarone and that was stopped due to his alcoholic liver disease , now had recurrence of atrial flutter. 1. This gentleman has atrial flutter, which is likely isthmus dependent relatively, treatment for ab lation could eliminate his arrhythmia. On the other hand, last visit his daughter, who is also nurse , preferred no intervention at that time. Likely discuss with her the repeat option of ablation with her. Alternatively, could be considered with the rate controlling medication. Amiodarone likely is not a good option as evident alcoholic liver disease. Sotalol could be a consideration for QT inter vals remained stable. 2. Anticoagulation will be a difficult proposition with history of falls and alcoholic liver issues. 3. Elevated B-type natriuretic peptide likely diastolic heart failure exacerbation, diabetes. As pe r Dr. Seaman, renal function is stable. 4. Anemia due to chronic disease. We have discussed the option of ablation, it was scheduled at the next available time once the family is agreeable.
[2017-09-23] MEDS: Tamsulosin HCl 0.4 MG CAP PO SCH (08:32)
[2017-09-23 10:02] LABS: Anion Gap 11 mmol/L (10-20); BUN (Urea Nitrogen) 8 mg/dL (8.4-25.7); Calc. Creatinine Clearance 82 mL/min (70-130); Calcium 9.1 mg/dL (7.8-10.44); Carbon Dioxide 24 mmol/L (23-31); Chloride 102 mmol/L (98-107); Estimated GFR-MDRD 86; Glucose 90 mg/dL (83-110); Potassium 3.5 mmol/L (3.5-5.1); Sodium 133 mmol/L (136-145)
[2017-09-23 10:29] LABS: INR-International Normal Ratio 1.1; PTT 36.3 SEC (22.9-36.1); Prothrombin Time 14.5 SEC (12.0-14.7)
--- NOTE | 2017-09-23 12:01 | PDOC.FM ---
- Subjective Subjective: Patient agitated overnight, pulling out IV lines and parsons. Soft restraints used overnight to protect nursing staff and patient. Patient is A&Ox1 today. He denies any pain. - Objective Vital Signs & Weight: Vital Signs (12 hours) Temp Pulse Resp BP Pulse Ox 09/23/17 08:01 97.7 F 88 18 157/67 H 99 09/23/17 08:00 97.7 F 88 18 92 L 09/23/17 04:00 98.1 F 92 19 143/75 H 92 L I&O: 09/22/17 09/23/17 09/24/17 06:59 06:59 06:59 Intake Total 200 Output Total 850 775 Balance -650 -775 Result Diagrams: 09/23/17 05:44 09/23/17 05:44 Phys Exam - Physical Examination Constitutional: NAD HEENT: PERRLA, moist MMs Neck: no nodes, full ROM Respiratory: no wheezing, clear to auscultation bilateral Cardiovascular: RRR, no significant murmur Gastrointestinal: soft, non-tender, no distention, positive bowel sounds Musculoskeletal: no edema, pulses present Neurological: non-focal, moves all 4 limbs Lymphatic: no nodes Psychiatric: normal affect Skin: no rash, cap refill <2 seconds Dx/Plan (1) HCAP (healthcare-associated pneumonia) Code(s): J18.9 - PNEUMONIA, UNSPECIFIED ORGANISM Status: Acute (2) Alcoholic hepatitis Code(s): K70.10 - ALCOHOLIC HEPATITIS WITHOUT ASCITES Status: Chronic Qualifiers: Ascites presence: without ascites Qualified Code(s): K70.10 - Alcoholic hepatitis without ascites (3) Atrial fibrillation with RVR Code(s): I48.91 - UNSPECIFIED ATRIAL FIBRILLATION Status: Resolved - Plan Plan: # Paroxysmal A Flutter - currently NSR with rate 80-90, 1 run of a flutter overnight, no elevated HR - family refused ablation last admission - amiodarone stopped during last admission 2/2 alcoholic hepatitis - Metoprolol - Cardiology consulted, appreciate recs - Echo - Ablation 09/24 w/ Dr. Meyer - One 8 min run of SVT this AM, resolved spontaneously, will continue tele monitorring # Dementia - frequent re-orientation - patient is agitated - Haldol 4mg q 2 hrs PRN - soft restraints PRN # Suspected Aspiration Pneumonia - recent hospitalization, admitted from [place] - suspected consolidation R upper lobe - Vanc, Zosyn stopped 09/23 - blood cultures neg x2 - ST recs mechanical softs - Augmentin BID # HFpEF - Echo 08/22 shows EF 60-65% - not in exacerbation # RLE swelling - doppler negative for DVT # difficult social situation - daughter Michelle from [place] has many demands - states she will not allow d/c until Neuro has seen patient - CT head is negative - Discussed with neuro, this is outpatient workup # Code - full # PPx - lovenox Dispo: Plan for D/C 09/24
[2017-09-23] MEDS ORDERED: Lorazepam 2 MG/ML VIAL SLOW IVP SCH (12:45)
--- NOTE | 2017-09-23 13:58 | ADD-PRG ---
ADDENDUM To the note of Dr. Harrison Demarco. Mr. Ramirez was having episodes of what sounds like delirium. He has recently become agitated to the point of being possibly a harm to himself and others. We have instituted therapy with Haldol and hav e increased the dosage. We have also advised the family to stay with the patient. We have raised [place] blinds in the room turn on the television and have asked the family to bring in his hearing aid. Myla medina was also being followed by EP and will undergo ablation tomorrow. He had several runs of nonsustai van asymptomatic ventricular tachycardia. Cardiology is on board.
--- NOTE | 2017-09-23 14:07 | PDOC.CTH ---
<Vickie Triplett - Last Filed: 09/23/17 14:06> Cardiology Progress Note - Subjective The pt seen and examined. No overnight events. No cardiac complaints. The pt is very confused at this moment and Sitter at bedside. - Objective Vital Signs Temp Pulse Resp BP Pulse Ox 09/23/17 08:01 97.7 F 88 18 157/67 H 99 09/23/17 08:00 97.7 F 88 18 92 L 09/23/17 04:00 98.1 F 92 19 143/75 H 92 L Admit Weight 171 lb 1.612 oz Weight 171 lb 1.612 oz 09/22/17 09/23/17 09/24/17 06:59 06:59 06:59 Intake Total 200 Output Total 850 775 Balance -650 -775 - Physical Examination Neck: no JVD present Lungs: CTA Heart: RRR Abdomen: soft Extremities: other: (No edema) - Telemetry Telemetry Rhythm: SR 80-90s - Labs Result Diagrams: 09/23/17 05:44 09/23/17 05:44 Troponin/CKMB CK-MB (CK-2) 4.5 ng/mL (0-6.6) 09/20/17 19:19 Troponin I 0.011 ng/mL (< 0.028) 09/20/17 19:19 - Assessment/Plan 1. A flutter - plan for ablation tomorrow. Not OAC or Lovenox; INR today was 1.1. 2. Chronic Diastolic HF with BNP 565 - stable; Will start Lisinopril/HCTZ 10/ 12.5mg daily from tomorrow; on BBlocker; cont. monitor 3. Alcoholic Encephalopathy - LFT stable; Cont. monitor 3. Hx of Fall - sitter at bedside * Plan for Aflutter ablation tomorrow by Anne-Marie Meyer. Review of Systems - Review of Systems Constitutional: reports: see HPI EENTM: reports: see HPI Respiratory: reports: see HPI Cardiac (ROS): reports: see HPI ABD/GI: reports: see HPI : reports: see HPI <Sara Seaman - Last Filed: 09/23/17 16:53> Cardiology Progress Note - Objective Vital Signs Temp Pulse Resp BP Pulse Ox 09/23/17 08:01 97.7 F 88 18 157/67 H 99 09/23/17 08:00 97.7 F 88 18 92 L Admit Weight 171 lb 1.612 oz Weight 171 lb 1.612 oz 09/22/17 09/23/17 09/24/17 06:59 06:59 06:59 Intake Total 200 Output Total 850 775 Balance -589 -594 - Labs Result Diagrams: 09/23/17 05:44 09/23/17 05:44 Troponin/CKMB CK-MB (CK-2) 4.5 ng/mL (0-6.6) 09/20/17 19:19 Troponin I 0.011 ng/mL (< 0.028) 09/20/17 19:19 - Assessment/Plan Pt. seen and eval. by me. I agree with the A/P by the OIL FIELD ROUSTABOUT. He is confused and restrained. The family is not present. He has a sitter present. He remains in NSR. The plan if for ablation of the atrial flutter focus tomorrow. Chest clear. RRR at this time.
[2017-09-23 16:59] LABS: Vancomycin, Trough 16.1 ug/mL
[2017-09-23] MEDS: Melatonin 3 MG TAB PO SCH (21:08)
[2017-09-23] MEDS: Amoxicillin/Potassium Clav 875 MG TAB PO SCH (21:09)
[2017-09-23] MEDS: Haloperidol Lactate 5 MG/ML VIAL IM PRN (21:09)
--- NOTE | 2017-09-24 06:37 | PDOC.FM ---
- Subjective Subjective: This morning patient is drowsy at time of exam, not cooperative with exam, states he "wants to sleep," denies pain. - Objective Vital Signs & Weight: Vital Signs (12 hours) Temp Pulse Resp BP Pulse Ox 09/24/17 03:30 98.3 F 91 18 172/73 H 92 L 09/24/17 01:00 20 09/23/17 20:05 97.5 F L 97 20 142/91 H 92 L 09/23/17 20:00 97.5 F L 97 20 92 L Weight Admit Weight 77.61 kg Weight 72.393 kg I&O: 09/22/17 09/23/17 09/24/17 06:59 06:59 06:59 Intake Total 200 Output Total 850 775 Balance -650 -775 Result Diagrams: 09/23/17 05:44 09/23/17 05:44 Phys Exam - Physical Examination Constitutional: NAD Limited exam, patient uncooperative HEENT: moist MMs Respiratory: no wheezing, clear to auscultation bilateral Cardiovascular: RRR, no significant murmur Neurological: moves all 4 limbs Skin: no rash Dx/Plan (1) HCAP (healthcare-associated pneumonia) Code(s): J18.9 - PNEUMONIA, UNSPECIFIED ORGANISM Status: Acute (2) Alcoholic hepatitis Code(s): K70.10 - ALCOHOLIC HEPATITIS WITHOUT ASCITES Status: Chronic Qualifiers: Ascites presence: without ascites Qualified Code(s): K70.10 - Alcoholic hepatitis without ascites (3) Atrial fibrillation with RVR Code(s): I48.91 - UNSPECIFIED ATRIAL FIBRILLATION Status: Resolved - Plan Plan: Plan: # Paroxysmal A Flutter - family refused ablation last admission - amiodarone stopped during last admission 2/2 alcoholic hepatitis - Metoprolol - Cardiology consulted, appreciate recs - Echo - Ablation 09/24 w/ Dr. Meyer - One 8 min run of SVT 09/23, resolved spontaneously, will continue tele monitorring - Sinus Rhythm overnight on tele # Dementia - frequent re-orientation - patient is agitated - Haldol 4mg q 2 hrs PRN - soft restraints PRN # Peripheral Neuropathy? - family is concerned about possible foot drop - family is refusing d/c until seen by neurology - unable to obtain thorough examination /2 patient's refusal to participate in exam, agitation - Spoke to Dr. Cervantes, will see the patient today, consult is much appreciated # Suspected Aspiration Pneumonia - recent hospitalization, admitted from [place] - suspected consolidation R upper lobe - Vanc, Zosyn stopped 09/23 - blood cultures neg x2 - ST recs mechanical softs - Augmentin BID # HFpEF - Echo 08/22 shows EF 60-65% - not in exacerbation # RLE swelling - doppler negative for DVT # difficult social situation - daughter Michelle from [place] has many demands - states she will not allow d/c until Neuro has seen patient - CT head is negative # HTN - added HCTZ/lisinopril per Cardiology # Code - full # PPx - lovenox Dispo: Plan for D/C 09/24
[2017-09-24] MEDS ORDERED: PROPOFOL 200 MG/20 ML VIAL ONE (07:16)
--- NOTE | 2017-09-24 09:05 | CON ---
DATE OF CONSULTATION: 09/24/2017 NEUROLOGY CONSULTATION CONSULTING PHYSICIAN: [facility]. IMPRESSION: 1. Peripheral neuropathy with bilateral foot drop, left worse than right. 2. Alcohol abuse. 3. Atrial flutter. PLAN: 1. Bilateral AFOs. 2. Office followup for nerve conduction studies 3. Lab work is ordered. HISTORY OF PRESENT ILLNESS: Mr. Ramirez is a 72-year-old man who [facility] . His daughters noticed that his feet have been weak for the last month. He has a history of alcoho l abuse. There is no other past history other than recent diagnosis of atrial flutter. He was sched uled for an ablation and I was called to give a neurologic opinion and a CT scan of the brain was unr emarkable. Laboratory studies show normal blood glucose and otherwise unremarkable findings. Patient does not r eport any pain or tingling in his feet. There is no reported weakness in the hands. He denies any l oss of bowel or bladder control. PAST MEDICAL HISTORY: As listed above. ALLERGIES: None. SOCIAL HISTORY: Alcohol use. FAMILY HISTORY: Noncontributory. REVIEW OF SYSTEMS: Otherwise, negative. PHYSICAL EXAMINATION: GENERAL: He is reasonably well-nourished elderly man lying in bed in no distress. VITAL SIGNS: Stable. He is afebrile. HEENT: Unremarkable. EXTREMITIES: There is no cyanosis, clubbing or edema. NEUROLOGIC: He is a bit sleepy and relatively uncooperative. His speech is fluent and clear. Crani al nerve exam showed no asymmetry. Motor exam showed good strength in both upper extremities. Lower extremity exam showed some distal atrophy and marked foot drop on the left more so than on the right . Reflexes were 1+ at the knees and absent at the ankles. Gait was not tested. No abnormal movemen ts were seen. Sensation was grossly intact, limited by his cooperativeness. SUMMARY: This is a 72-year-old man with history of alcohol abuse who presents with bilateral foot dr op and areflexia consistent with peripheral neuropathy. It is unlikely to be a treatable etiology. He could get better if he discontinues alcohol use. We can get him set up for AFOs and office follow up for nerve conduction studies.
[2017-09-24] MEDS ORDERED: Lidocaine 1% (PF) 30 ML VIAL ONE (09:43)
[2017-09-24] MEDS ORDERED: Propofol 500 MG/50 ML VIAL ONE ×2 (11:10→12:29)
[2017-09-24] MEDS ORDERED: Heparin 10,000 UNITS/1 ML VIAL ONE (12:01)
[2017-09-24] MEDS ORDERED: DOPamine 400 MG/D5W 250 ML 250 ML ONE (12:31)
[2017-09-24] MEDS ORDERED: Promethazine HCl 25 MG/ML VIAL IM PRN (13:26)
[2017-09-24] MEDS ORDERED: Promethazine HCl 25 MG/ML VIAL SLOW IVP PRN (13:26)
[2017-09-24] MEDS ORDERED: Morphine Sulfate 2 MG/ML SYRINGE SLOW IVP PRN (13:26)
[2017-09-24] MEDS ORDERED: Ondansetron HCl/PF 4 MG/2 ML Vial IVP PRN ×2 (13:26→18:22)
--- NOTE | 2017-09-24 14:21 | ADD-PRG ---
DATE OF SERVICE: 09/24/2017 This is an addendum to the note of Dr. Harrison Couch. Mr. Ramirez will get his ablation this morning. He was seen by Neurology yesterday regarding his foot drop. Neurology felt this was secondary to his a lcoholism. After ablation, can likely be discharged tomorrow. Given his fall risk, he is not a good candidate for post-ablation DOAC.
--- NOTE | 2017-09-24 14:21 | PDOC.CTH ---
Cardiology Progress Note - ROS not able to obtain ROS - Objective Vital Signs Temp Pulse Resp BP Pulse Ox 09/24/17 09:40 97.7 F 97 18 129/56 L 92 L 09/24/17 08:00 97.7 F 97 18 92 L 09/24/17 03:30 98.3 F 91 18 172/73 H 92 L Admit Weight 171 lb 1.612 oz Weight 159 lb 9.6 oz 09/23/17 09/24/17 09/25/17 06:59 06:59 06:59 Intake Total 100 Output Total 775 420 Balance -775 -320 - Physical Examination General/Neuro: other: (confused.) Neck: carotid US brisk Lungs: CTA Heart: RRR Abdomen: NT/ND - Telemetry Telemetry Rhythm: NSR - Labs Result Diagrams: 09/23/17 05:44 09/23/17 05:44 Troponin/CKMB CK-MB (CK-2) 4.5 ng/mL (0-6.6) 09/20/17 19:19 Troponin I 0.011 ng/mL (< 0.028) 09/20/17 19:19 - Assessment/Plan 1. A flutter - s/p ablation Maintaining sinus.. Per EP will need to monitor for other atrial arhythmias.Will need rate control. 2. Chronic Diastolic HF with BNP 565 - stable; Will start Lisinopril/HCTZ 10/ 12.5mg daily from tomorrow; on BBlocker; cont. monitor 3. Alcoholic Encephalopathy - LFT stable; Cont. monitor 3. Hx of Fall - sitter at bedside
[2017-09-24] MEDS: Magnesium Oxide 400 MG TAB PO SCH ×2 (15:17→16:24)
[2017-09-24] MEDS: Folic Acid 1 MG TAB PO SCH ×2 (15:17→16:23)
[2017-09-24] MEDS: Multivitamin W/ Minerals 1 TAB PO SCH ×2 (15:17→16:24)
[2017-09-24] MEDS: Lisinopril/Hydrochlorothiazide 10 mg/12.5 mg Tablet PO SCH ×2 (15:17→16:24)
[2017-09-24] MEDS: Amoxicillin/Potassium Clav 875 MG TAB PO SCH ×3 (15:17→20:12)
[2017-09-24] MEDS: Tamsulosin HCl 0.4 MG CAP PO SCH ×2 (15:18→16:24)
[2017-09-24] MEDS ORDERED: Enoxaparin Sodium 40 MG/0.4 ML SYRINGE SC SCH (16:00)
[2017-09-24] MEDS ORDERED: Bisacodyl 5 MG TAB PO PRN (18:22)
[2017-09-24] MEDS ORDERED: Mag-Al 1200 mg/1200 mg/30 ML UDCUP PO PRN (18:22)
[2017-09-24] MEDS ORDERED: Nitroglycerin 0.4 MG TAB (25 Tab Bottle) SL PRN (18:22)
[2017-09-24] MEDS ORDERED: Acetaminophen 325 MG TAB PO PRN (18:22)
[2017-09-24] MEDS ORDERED: traMADol HCl 50 MG TAB PO PRN (18:22)
[2017-09-24] MEDS ORDERED: Bisacodyl 10 MG SUPP PR PRN (18:22)
[2017-09-24] MEDS ORDERED: Silver Sulfadiazine 1% Cream 50 GM JAR TOP PRN (18:22)
[2017-09-24] MEDS: Melatonin 3 MG TAB PO SCH (20:11)
[2017-09-24] MEDS: Senokot S 8.6-50 MG TAB PO SCH (20:11)
[2017-09-25] MEDS: Temazepam 15 MG CAP PO PRN (00:24)
--- NOTE | 2017-09-25 00:27 | CCLSPC ---
ELECTROPHYSIOLOGY STUDY AND RADIOFREQUENCY ABLATION REPORT DATE OF PROCEDURE: 09/24/2017 REFERRING PHYSICIAN: Dr. Seaman. REASON FOR PROCEDURE: Mr. Ramirez is a 72-year-old man with prior history of alcoholic liver and brai n disease, who has recurrent atrial flutters with rapid rates for amiodarone hence liver diseas e is present. He is here for an EP study and radiofrequency ablation of his atrial flutter circuit, which appears to be very typical isthmus dependent based on the EKG morphology. PROCEDURE IN DETAIL: The patient received deep sedation by Anesthesia specialist. After adequate le tereso of sedation achieved, the right femoral venous area was prepped, draped and anesthetized using moreno bcutaneous lidocaine and under ultrasound guidance, the right femoral veins were cannulated x2. Two 8 Wolof short sheath was introduced through which a decapolar CS catheter was advanced to the right ventricular and right atrium. CS and His bundle area with pacing, mapping and recording were perform ed in each location. Baseline EP study failed to induce atrial flutter or any other SVTs. Following that, a standard Ther moCool SF ST bidirectional catheter was advanced to the right atrium. A 3D map of the right atrium w as obtained and while proximal CS pacing, radiofrequency ablation of the cavotricuspid isthmus was pe rformed. We were able to achieve delay through the cavotricuspid isthmus up to 180 milliseconds with transisthmus time longest by the ablation line of cavotricuspid isthmus block achieved at leas t . Following that, a basic EP study was performed with the following findings. The cycle miri th is 712 milliseconds, ID 137 milliseconds, QRS 86, QT 438 milliseconds, AH 208 and HV 41 millisecon ds. Sinus node recovery time was 311 milliseconds corrected. AV Wenckebach cycle length was 400 mil liseconds. The burst atrial pacing did induce atypical atrial flutters, multiple different morpholog ies were obtained. Eventually, 300 mg of total amiodarone stabilized the rhythm. Following that, re checking the line after IV dobutamine administration was performed and the isthmus line block was aga in demonstrated. Post-ablation, no definite change or cardiac silhouette is seen to suggest effusion . The patient remained stable. Lines were removed in the labeling associate. CONCLUSIONS: 1. Successful cavotricuspid isthmus ablation. 2. Multiple different non-right atrial flutter circuits, transient fibrillation was also seen respon ding to amiodarone. 3. Normal sinus rebecca and AV rebecca function and His-Purkinje function noted. PLAN: At this point, continue rate control. Monitor for recurrent atrial arrhythmias. For now due to comorbidities, I think he is relatively poor candidate for full anticoagulation and pulmonary veno us isolation procedure. POS: JOSE
--- NOTE | 2017-09-25 07:11 | PDOC.FM ---
- Subjective Subjective: This morning patient denies pain or shortness of breath. Patient is A&Ox1. He denies feeling his heart racing or any pain at catheter insertion site. Denies N /V/D or cough. - Objective Vital Signs & Weight: Vital Signs (12 hours) Temp Pulse Resp BP Pulse Ox 09/25/17 04:38 97.8 F 89 20 143/80 H 93 L 09/25/17 00:01 97.5 F L 89 20 118/71 91 L 09/24/17 20:06 98.2 F 87 18 128/92 H 90 L 09/24/17 20:05 98.2 F 87 18 90 L Weight Admit Weight 77.61 kg Weight 72.393 kg I&O: 09/24/17 09/25/17 09/26/17 06:59 06:59 06:59 Intake Total 100 Output Total 420 Balance -320 Result Diagrams: 09/23/17 05:44 09/23/17 05:44 <Harrison Demarco - Last Filed: 09/25/17 07:10> - Objective Vital Signs & Weight: Vital Signs (12 hours) Temp Pulse Resp BP BP Pulse Ox 09/25/17 16:00 98.2 F 97 18 124/82 92 L 09/25/17 11:58 97.5 F L 86 18 120/77 92 L 09/25/17 11:04 95 130/75 Weight Admit Weight 77.61 kg Weight 72.393 kg I&O: 09/24/17 09/25/17 09/26/17 06:59 06:59 06:59 Intake Total 100 1080 Output Total 420 Balance -320 1080 Result Diagrams: 09/23/17 05:44 09/23/17 05:44 <Beti Layton - Last Filed: 09/25/17 22:04> Phys Exam - Physical Examination Constitutional: NAD HEENT: PERRLA, moist MMs Neck: no nodes, full ROM Respiratory: no wheezing, clear to auscultation bilateral Cardiovascular: RRR, no significant murmur Gastrointestinal: soft, non-tender, no distention, positive bowel sounds Musculoskeletal: no edema, pulses present Neurological: non-focal, moves all 4 limbs patient non-participatory in neuro exam, unable to assess strength sits up in bed Psychiatric: normal affect, A&O x 3 Skin: no rash, cap refill <2 seconds <Harrison Demarco - Last Filed: 09/25/17 07:10> Dx/Plan (1) HCAP (healthcare-associated pneumonia) Code(s): J18.9 - PNEUMONIA, UNSPECIFIED ORGANISM Status: Acute (2) Alcoholic hepatitis Code(s): K70.10 - ALCOHOLIC HEPATITIS WITHOUT ASCITES Status: Chronic QualifierTitle: Ascites presence: without ascites Qualified Code(s): K70.10 - Alcoholic hepatitis without ascites (3) Atrial fibrillation with RVR Code(s): I48.91 - UNSPECIFIED ATRIAL FIBRILLATION Status: Resolved - Plan Plan: Plan: # Paroxysmal A Flutter - family refused ablation last admission - amiodarone stopped during last admission 2/ alcoholic hepatitis - Metoprolol - Cardiology consulted, appreciate recs - One 8 min run of SVT 09/23, resolved spontaneously, will continue tele monitorring - Ablation 09/24 w/ Dr. Meyer - Sinus Rhythm overnight on tele # Dementia - frequent re-orientation - patient is not agitated this AM, has been agitated overnight per sitter - Haldol 4mg q 2 hrs PRN - soft restraints PRN # Possible Peripheral Neuropathy - family is concerned about possible foot drop - Neuro evaluated, bilateral foot drop - possible peripheral neuropathy 2/2 alcoholism - Neuro rec, Ankle-foot orthotics, outpt f/u and nerve conduction studies # Suspected Aspiration Pneumonia - recent hospitalization, admitted from [place] - suspected consolidation R upper lobe - Vanc, Zosyn stopped 09/23 - blood cultures neg x2 - ST recs mechanical softs - will complete modified barium swallow this AM 2/2 family concerns for aspiration - Augmentin BID # HFpEF - Echo 08/22 shows EF 60-65% - not in exacerbation # RLE swelling - doppler negative for DVT # difficult social situation - daughter Michelle from [place] has many demands, has been rude to nursing staff - CM reports daughter Laura is POA - CT head is negative # HTN - added HCTZ/lisinopril per Cardiology # Code - full # PPx - lovenox Dispo: Plan for D/C 09/25 <Harrison Demarco - Last Filed: 09/25/17 07:10> Attending Addendum - Attending Addendum Date/Time: 09/25/17 0376 I personally evaluated the patient and discussed the management with Dr. Demarco. I agree with the History, Examination, Assessment and Plan documented above with any addition or exceptions noted below. Patient will be having a swallow study today. Has acceptance at [facility]. In sinus rhythm following ablation. May be discharging soon pending results of swallow study. Pt A&O x 1 today. Will d/c issa. <Beti Layton - Last Filed: 09/25/17 22:04>
--- NOTE | 2017-09-25 10:48 | RAD ---
MODIFIED BARIUM SWALLOW: Date: 09/25/17 PROVIDED CLINICAL HISTORY: Dysphagia, unspecified. Feeding difficulty. FINDINGS: Multiple consistencies of oral barium were administered by the speech pathologist with video fluorosc opy performed. There is evidence for penetration with cup swallows of thin liquid and evidence for as piration without cough reflex on straw swallows of thin liquid. Premature spillage is noted with thin consistencies. Please see speech therapy consultation for full details. POS: JOSE
[2017-09-25] MEDS: Senokot S 8.6-50 MG TAB PO SCH ×2 (11:03→23:32)
[2017-09-25] MEDS: Magnesium Oxide 400 MG TAB PO SCH (11:03)
[2017-09-25] MEDS: Tamsulosin HCl 0.4 MG CAP PO SCH (11:03)
[2017-09-25] MEDS: Folic Acid 1 MG TAB PO SCH (11:03)
[2017-09-25] MEDS: Multivitamin W/ Minerals 1 TAB PO SCH (11:03)
[2017-09-25] MEDS: Lisinopril/Hydrochlorothiazide 10 mg/12.5 mg Tablet PO SCH (11:04)
[2017-09-25] MEDS: Amoxicillin/Potassium Clav 875 MG TAB PO SCH ×2 (11:04→23:32)
--- NOTE | 2017-09-25 14:39 | PDOC.EVN ---
Event Note - Event Note Event Note: Check on patient. Patient states he is "frustrated" because sitter will not allow patient to have beer in the hospital. Patient wants to leave to buy a beer. Explained to patient that it is hospital policy that patient's cannot have alcohol in the hospital in normal circumstances.
--- NOTE | 2017-09-25 15:41 | PDOC.EVN ---
Event Note - Event Note Event Note: Interim Note: - Swallow study this AM, aspirated on thin fluids but did well with thickened liquids, ST adjusted diet appropriately - Possible aspiration PNA has been appropriately treated, bcx were negative, continued with oral abx after negative cultures, patient has been afebrile and satting well on room air, required 1L O2 overnight 2 nights ago, suggest outpatient sleep study for possible KAREN - Patient had an ablation for atrial flutter, since ablation patient has been in sinus rhythm, will transfer to floor as patient does not need telemetry - Neurology saw and evaluated patient, recommended outpatient follow-up for further evaluation of peripheral neuropathy - Patient had parsons catheter placed earlier in the week for urinary retention, parsons catheter removed this AM, will keep patient overnight to monitor urine output - Anticipate patient will be ready for d/c tomorrow 09/26
[2017-09-25] MEDS: Haloperidol Lactate 5 MG/ML VIAL IM PRN (16:47)
--- NOTE | 2017-09-25 18:58 | PDOC.CTH ---
Cardiology Progress Note - Subjective he is non verbal. - Objective Vital Signs Temp Pulse Resp BP BP Pulse Ox 09/25/17 16:00 98.2 F 97 18 124/82 92 L 09/25/17 11:58 97.5 F L 86 18 120/77 92 L 09/25/17 11:04 95 130/75 09/25/17 08:10 97.9 F 95 18 130/75 94 L 09/25/17 08:00 97.9 F 95 18 95 Admit Weight 171 lb 1.612 oz Weight 159 lb 9.6 oz 09/24/17 09/25/17 09/26/17 06:59 06:59 06:59 Intake Total 100 1080 Output Total 420 Balance -320 1080 - Physical Examination General/Neuro: NAD Neck: no JVD present Lungs: unlabored respirations Heart: RRR Abdomen: NT/ND Extremities: + edema B (trace) - Telemetry Telemetry Rhythm: NSR - Labs Result Diagrams: 09/23/17 05:44 09/23/17 05:44 Troponin/CKMB CK-MB (CK-2) 4.5 ng/mL (0-6.6) 09/20/17 19:19 Troponin I 0.011 ng/mL (< 0.028) 09/20/17 19:19 - Assessment/Plan 1. A flutter - s/p ablation Maintaining sinus.. Per EP will need to monitor for other atrial arhythmias.Will need rate control. 2. Chronic Diastolic HF with BNP 565 -On Lisinopril/HCTZ 10/12.5mg daily r 3. Alcoholic Encephalopathy 3. Hx of Fall PLAN: - Continue BB. - No anticoagulation per Dr Meyer, I have to agree he is not a good candidate for anticoagulation given his other commorbidities. Aspirin alone for stroke prophylaxis once bale to tolerate PO.
--- NOTE | 2017-09-25 19:10 | EKG ---
Test Reason : POST ABLATION Blood Pressure : / mmHG Vent. Rate : 083 BPM Atrial Rate : 083 BPM P-R Int : 176 ms QRS Dur : 092 ms QT Int : 396 ms P-R-T Axes : 043 029 058 degrees QTc Int : 465 ms Normal sinus rhythm Possible Left atrial enlargement Borderline ECG When compared with ECG of 23-SEP-2017 10:15, (Unconfirmed) No significant change was found Confirmed by VIVIAN HERNÁNDEZ, DR. S. ([id number]) on 09/25/2017 7:09:33 PM Referred By: [facility] Confirmed By:DR. Mandy PARK MD
[2017-09-25] MEDS: Melatonin 3 MG TAB PO SCH (23:32)
[2017-09-26 06:30] LABS: Hemoglobin 10.3 g/dL (14.0-18.0); Mean Corpuscular HGB CONC 32.3 g/dL (32.0-36.0); Mean Corpuscular Hemoglobin 29.9 pg (27.0-31.0); Mean Corpuscular Volume 92.6 fl (80.0-94.0); Mean Platelet Volume 6.7 fL (7.4-10.4); Platelet Count 367 thou/uL (130-400); RBC Distribution Width 12.7 % (11.5-14.5); Red Blood Cell (RBC) Count 3.44 mill/uL (4.70-6.10); White Blood Cell (WBC) Count 7.5 thou/uL (4.8-10.8)
--- NOTE | 2017-09-26 06:58 | PDOC.FM ---
Addendum entered and electronically signed by Harrison Demarco MD 09/26/17 08:29: spoke to on-call assistant golf coach, he states that because patient is now back in sinus rhythm and 2/2 to his cirrhosis, there are no medication changes indicated. Patient is not on anticoagulation 2/2 fall risk, this was previously discussed with family. Spoke to on-call urologist. States he will stop by to see patient today. States q6hr straight cath would be a safe method to go home to the [facility] with, but he will evaluate the patient and give any further recs if indicated. Original Note: - Subjective Subjective: This morning patient is A&Ox1. He states he wants to go fishing this AM. Patient denies chest pain, sob, or palpitations. He denies urinary difficulties. He denies dysuria or burning with urination. Per sitter patient has not been able to void on his own overnight. - Objective Vital Signs & Weight: Vital Signs (12 hours) Temp Pulse Resp BP Pulse Ox 09/26/17 05:30 97.2 F L 92 20 114/74 92 L 09/25/17 20:00 97.9 F 100 18 107/56 L 93 L Weight Admit Weight 77.61 kg Weight 72.847 kg I&O: 09/24/17 09/25/17 09/26/17 06:59 06:59 06:59 Intake Total 100 1350 Output Total 420 2356 Balance -320 -1006 Result Diagrams: 09/26/17 05:51 09/23/17 05:44 <Harrison Demarco - Last Filed: 09/26/17 07:02> - Objective Vital Signs & Weight: Vital Signs (12 hours) Temp Pulse Resp BP BP Pulse Ox 09/26/17 09:15 92 95/57 L 09/26/17 08:00 97.8 F 98 18 95/57 L 95 09/26/17 05:30 97.2 F L 92 20 114/74 92 L Weight Admit Weight 77.61 kg Weight 72.847 kg I&O: 09/25/17 09/26/17 09/27/17 06:59 06:59 06:59 Intake Total 1350 360 Output Total 2356 500 Balance -1006 -140 Result Diagrams: 09/26/17 05:51 09/23/17 05:44 <Beti Layton - Last Filed: 09/26/17 16:33> Phys Exam - Physical Examination Constitutional: NAD HEENT: PERRLA, moist MMs Neck: no nodes, full ROM Respiratory: no wheezing, clear to auscultation bilateral Cardiovascular: RRR, no significant murmur Gastrointestinal: soft, non-tender, no distention, positive bowel sounds Musculoskeletal: no edema, pulses present Neurological: non-focal, moves all 4 limbs Patient refuses to participate in exam, could not assess strength Deviation from normal: A&Ox1 Skin: no rash, cap refill <2 seconds <Harrison Demarco - Last Filed: 09/26/17 07:02> Dx/Plan (1) HCAP (healthcare-associated pneumonia) Code(s): J18.9 - PNEUMONIA, UNSPECIFIED ORGANISM Status: Acute (2) Alcoholic hepatitis Code(s): K70.10 - ALCOHOLIC HEPATITIS WITHOUT ASCITES Status: Chronic QualifierTitle: Ascites presence: without ascites Qualified Code(s): K70.10 - Alcoholic hepatitis without ascites (3) Atrial fibrillation with RVR Code(s): I48.91 - UNSPECIFIED ATRIAL FIBRILLATION Status: Resolved - Plan Plan: # Urinary Retention - patient had parsons catheter placed on 09/23 2/2 urinary retention on bladder scan - Patient remained agitated throughout stay, was on restraints so he would not pull parsons or IV lines -patient is requiring restraints once again, cannot d/c to NH with parsons and restraints - removed parsons 09/25, patient not urinating, straight cath overnight - history BPH, on tamulosin - haldol used for agitation this hospitalization, patient recieved only 1 dose between 09/23-09/25 -urinary retention is not common side effect of haldol but possible - d/c'd haldol 09/26 - Urology consulted, recs appreciated # Paroxysmal A Flutter - family refused ablation last admission - amiodarone stopped during last admission 2/2 alcoholic hepatitis - Metoprolol - Cardiology consulted, appreciate recs - One 8 min run of SVT 09/23, resolved spontaneously, will continue tele monitorring - 1+ hour run of a flutter s/p ablation on 09/25 overnight - patient non-compliant with monitor, a flutter for between 1-2 hour - Ablation 09/24 w/ Dr. Meyer - EP recs appreciated # Dementia - frequent re-orientation - patient on soft-restraints this AM 08/06 possible harm to self/staff # Possible Peripheral Neuropathy- addressed - family is concerned about possible foot drop - Neuro evaluated, bilateral foot drop - possible peripheral neuropathy 2/ alcoholism - Neuro rec, Ankle-foot orthotics, outpt f/u and nerve conduction studies # Suspected Aspiration Pneumonia- addressed - recent hospitalization, admitted from [place] - suspected consolidation R upper lobe - VancGenevieven 09/21-09/23 - blood cultures neg x2 - ST recs mechanical softs - barium swallow completed, ST recs patient safe for mechanical softs - Augmentin BID started 09/23 # HFpEF - Echo 08/22 shows EF 60-65% - not in exacerbation # RLE swelling - doppler negative for DVT # difficult social situation - daughter Michelle from [place] has many demands - nursing staff reports demeaning exchanges including "you guys cannot get anything done down there," "everything is slower in [place]" - CM reports daughter Laura is POA # HTN - added HCTZ/lisinopril per Cardiology # Code - full # PPx - lovenox Barriers to d/c - family plans to appeal d/c regardless of when this is or any treatment given per CM report - urinary retention-> cannot go to [place] with parsons b/c he requires restraints to keep from pulling it - straight cath maybe option, urology recs appreciated - EP recs on A flutter occurring 09/25 - placement is obtained for [facility] [place], family will have to provide sitter <Harrison Demarco - Last Filed: 09/26/17 07:02> Attending Addendum - Attending Addendum Date/Time: 09/26/17 [id number] I personally evaluated the patient and discussed the management with Dr. Demarco. I agree with the History, Examination, Assessment and Plan documented above with any addition or exceptions noted below. The patient had an episode of a.fib with RVR overnight which converted with a dose of diltiazem. The patient is currently in sinus rhythm. He was unable to void when catheter was removed yesterday and parsons was replaced. Urology was consulted and will see the patient today. He is already on flomax. Per sitter , pt had a restless night. Cardiology will be contacted to see if there need to be any additional changes in meds with the a.fib though this is not unexpected in the immediate period after an ablation. Anticipate patient should be ready for discharge tomorrow. <Beti Layton - Last Filed: 09/26/17 16:33>
[2017-09-26] MEDS: Magnesium Oxide 400 MG TAB PO SCH (09:11)
[2017-09-26] MEDS: Senokot S 8.6-50 MG TAB PO SCH ×2 (09:11→21:02)
[2017-09-26] MEDS: Lisinopril/Hydrochlorothiazide 10 mg/12.5 mg Tablet PO SCH (09:15)
[2017-09-26] MEDS: Tamsulosin HCl 0.4 MG CAP PO SCH (09:16)
[2017-09-26] MEDS: Multivitamin W/ Minerals 1 TAB PO SCH (09:16)
[2017-09-26] MEDS: Amoxicillin/Potassium Clav 875 MG TAB PO SCH ×2 (09:16→21:02)
[2017-09-26] MEDS: Folic Acid 1 MG TAB PO SCH (09:16)
--- NOTE | 2017-09-26 10:48 | DIS-2 ---
DATE OF ADMISSION: 09/21/2017 DATE OF DISCHARGE: To be determined. This is a transfer of care note for the benefit of the team, who will be taking over this patient's care. RESIDENT: Dr. Harrison Demarco. ADMITTING ATTENDING: Dr. Hector Albert. DISCHARGE ATTENDING: To be determined. CONSULTATIONS: Cardiology, Electrophysiology, Neurology, Urology. PROCEDURES: Cardiac ablation. PRIMARY DIAGNOSES: Paroxysmal atrial flutter with rapid ventricular rhythm. SECONDARY DIAGNOSES: Urinary retention, dementia secondary to possible Alzheimer's/alcoholism, possible peripheral neuropathy, suspected aspiration pneumonia, heart failure with preserved ejection fraction, hypertension. DISCHARGE MEDICATIONS: Augmentin 875 b.i.d. for 4 days, folic acid 1 mg daily, lisinopril/hydrochlorothiazide 10 mg/12.5 mg daily, metoprolol 25 mg daily, tamsulosin 0.4 mg daily, Pepcid 20 mg daily, potassium 40 mEq b.i.d., thiamine 100 mg daily. DISCONTINUED MEDICATIONS: None. HISTORY OF PRESENT ILLNESS/HOSPITAL COURSE: This 72-year-old male presented from [facility] with tachycardia. On presentation to the ED, he was found to have suspected pneumonia. The patient was afebrile and did not have any oxygen requirement, but a developing infiltrate was noted on chest x-ray. Past medical history included recent extended hospitalization for management of atrial flutter, alcohol withdrawal, and goals of care. At time of admission, he was arousable, he knew his name, and followed commands, but did not answer questions appropriately. He was A and O x1. The patient was admitted for evaluation of pneumonia. He was treated with vancomycin, Zosyn, Levaquin in the ED. Upon admission, the patient was found to be in atrial flutter with RVR. This was known at his last recent hospitalization. During the last hospitalization, the family refused ablation. Antiarrhythmics were not started, because of the patient's cirrhosis, which was a contraindication to amiodarone and others. Ultimately, the family decided that they now wanted to go forward with the ablation and ablation was completed on 09/24/2017. As of 09/26/2017, the patient has had one run of atrial flutter with RVR, which converted with 10 mg of diltiazem. I spoke with Cardiology. They recommended no changes to his medication regimen and stated he was safe to go home. Regarding the patient's dementia, daughter, Laura, told primary team that the patient had had alcoholism for 30 years and also a strong family history of Alzheimer's and so she suspected that he had Alzheimer's. She stated that for these last years, she was unable to tell whether it was the alcoholism or the Alzheimer's that was setting on. DaughterObdulia, states that it was only 3 years that patient has been alcoholic, but daughter, Obdulia, lives in [place]. Daughter, Obdulia, has been very involved in the care throughout his stay. Possible peripheral neuropathy. This was evaluated by Neurology, who stated that the patient does indeed have a bilateral foot drop. Neurology states this is likely secondary to alcoholism and recommended starting ankle-foot orthotics. Neurology recommends followup for outpatient nerve conduction studies in the office. Urinary retention. The patient had a Flores catheter placed on 09/23/2017 secondary to urinary retention noted on a bladder scan. The patient was agitated throughout the stay and was on restraints. He was trying to pull out his Flores and his lines. He was also not safe for himself or sitters, who are in the room. Sitters in the room reported that they did not feel safe with him as agitated as he was. Haldol was used p.r.n. to help with the agitation. This started on 09/23/2017. He went nearly 48 hours without Haldol between 322 and 324 and still had urinary retention when the Flores catheter was removed on 09/25/2017. Urology was consulted, please add their records to the discharge summary. Anticipate that he will go home with straight cath q.6 hours. Suspected aspiration pneumonia. He was treated with vancomycin and Zosyn. Cultures came back negative. The patient was deescalated to Augmentin b.i.d. The patient has been afebrile throughout the stay. There is one night where he needed some supplemental oxygen up to 1 liter overnight, but otherwise he has been satting well on room air throughout the stay. Barium swallow was completed. Speech therapy kept the patient on recommendation of thickened liquids. They stated that he did aspirate some of the thin liquids and continued his diet accordingly. The patient's family has expressed some dissatisfaction with the patient's care. The family has had many, many requests throughout the stay, which were all addressed. The family requested a Neurology consult, which was given. The patient's family requested a barium swallow, which was given. The patient's family told case management that they were going to appeal discharge, no matter when and why it happened. They state that they will appeal on the discharge to [facility], which is the same thing that they did last time the patient was discharged from the hospital. Administration had to be involved and let them know that they would be responsible for the hospital bill on their own if the appeal was rejected. Anticipate that this may be the case upon this discharge. The patient has been accepted to [facility]. Family will have to provide a sitter. BARRIERS TO DISCHARGE: Awaiting Urology recommendations for outpatient management of urinary retention. Cardiology states that atrial flutter needs no medication changes, as he has converted back to sinus. Anticipate discharge later today, pending any new findings. DISPOSITION: Stable. DISCHARGE INSTRUCTIONS: 1. Location: senior care. 2. Diet: Thickened liquids. 3. Activity: As tolerated. 4. Followup: PCP 2-[address] Cervantes in 7 days for nerve conduction study , Dr. Seaman in 14 days, and Dr. Meyer in 14 days. DEBBY
--- NOTE | 2017-09-26 11:38 | CON ---
DATE OF CONSULTATION: 09/26/2017 SERVICE: Urology. CONSULTING SERVICE: Family Medicine. CONSULTED PHYSICIAN: Phillip Cain M.D. with Urology. REASON FOR CONSULTATION: Urinary retention. HISTORY OF PRESENT ILLNESS: Mr. Ramirez is a 72-year-old white male who was admitted to the hospital for atrial fibrillation with alcohol withdrawal. He had significantly altered mental status and has required multiple treatments while in the hospital from which he is ultimately improved. During the course of his hospitalization, the patient was not able to urinate and ended up with a Flores catheter due to his agitation and his attempts to try and pull out his catheter by himself. The patient ende d up in restraints with a sitter to ensure that he did not pull out his catheter. Attempts at removi ng the catheter have been unsuccessful as the patient has not been able to void afterwards. I have shannan christiansen consulted for further assistance in managing his situation. Of note, I have been told that there is some difficult social situation and daughter does not wish for the father to be discharged at thi s time or go to a halfway, although his physicians feel that it would be the best thing for him. The patient continues to have fairly significantly altered mental status and is not answering quest ions completely appropriately. I am not entirely sure how well he really understands the information that I am telling him nor does he provide a very accurate history. He does answer simple questions, but no other family is present other than the sitter in the room. So unfortunately his history is p rimarily obtained from sitter, the nursing records, physician records and somewhat from the patient. ALLERGIES: None. HOME MEDICATIONS: 1. Pepcid. 2. Folvite. 3. Magnesium oxide. 4. Multivitamins. 5. Potassium chloride. 6. Flomax. 7. Thiamine. 8. Metoprolol. 9. Chlordiazepoxide. PAST MEDICAL HISTORY: 1. Dementia. 2. Alcoholic hepatitis. 3. Malnutrition. 4. Alcohol withdrawal. 5. Rhabdomyolysis. 6. Cellulitis. 7. Paroxysmal atrial flutter. PAST SURGICAL HISTORY: Not entirely known. FAMILY HISTORY: Noncontributory. SOCIAL HISTORY: The patient has significant alcoholism per records. He does not answer questions ap propriately for illicit drug use or smoking use. REVIEW OF SYSTEMS: A 12-point review of systems was unable to be obtained as the patient keeps talki ng about an imaginary sink in the room, but does not exist rather than answering the questions that I am asking him. As such, review of systems is unobtainable at this time. PHYSICAL EXAMINATION: VITAL SIGNS: Temperature 97.2, pulse 92, respirations 20, blood pressure 95/57, saturation 92% on ro om air. GENERAL: No apparent distress. Does not answer questions appropriately, appears slightly disheveled , but otherwise well-nourished and well developed, appears stated age. HEENT: Normocephalic, atraumatic. Sclerae are nonicteric. Pupils are symmetric and round. Trachea midline. Moist mucous membranes. CARDIOVASCULAR: Irregularly irregular. Normal rate. Symmetric pulses. Normal S1 and S2. CHEST: No increased work of breathing. Symmetric expansion of lungs clear anteriorly. ABDOMEN: Soft, nontender, nondistended, positive bowel sounds, possible organomegaly of the liver. No tenderness, rebound or guarding. GENITOURINARY: Flores catheter in place with clear yellow urine secured with a StatLock. EXTREMITIES: No clubbing, cyanosis or edema. MUSCULOSKELETAL: The patient is currently in restraints, so range of motion is not completely tested . He is able to move his arms and legs. Otherwise, cranial nerves appear grossly intact, although a gain patient is not following commands appropriately. Therefore, it is difficult to assess. SKIN: Warm, dry, and good turgor. PSYCHIATRIC: Alert and oriented x2. His mental capacity currently seems somewhat impaired, although he appears per his notes to be better off than where he was previously. ASSESSMENT AND PLAN: A 72-year-old male with urinary retention, presumably from BPH. Given that the patient is somewhat altered at the current time, I would not attempt a digital rectal exam currently , although we can always do this later. He is currently already on Flomax and I am not sure if his c urrent urinary retention is just due to issues regarding his BPH alone or more likely probably from a decreased bladder contractility from being bedridden for a period of time. It is also unknown if he is constipated or not, which can also exacerbate urinary symptoms. At the current time given that t he patient continues to have altered mental status and delirium episodes with attempts to pull his ca theter out requiring restraints, it appears that the restraints are only for this purpose. If the ca theter can be removed, he can switch to intermittent catheterization, this would be ideal as the joshua ent would not have an indwelling catheter to be removed. So as long as he is willing to permit nursi ng staff to do intermittent catheterization, this would be the best regimen. I would ensure that he has permitting nursing staff to do this and if so, he can go to his halfway or detention [facility] with instructions for catheterization every 4-6 hours with attempts to void on his own in [facility]. If he is not able to void, obviously, he would need to be catheterized to empty his bladder ou t, but if his Flores catheter is removed, he probably will not require a sitter with restraints unless there are other reasons or health concerns necessary to continue them. From my standpoint, I would recommend continuation of the tamsulosin and follow up as an outpatient. I would like to see him eliza k in approximately 1-2 weeks at which time we will discuss further strategies to improve his urinatio n if he continues to remain in urinary retention. We will probably perform urodynamics as an outpati ent and if he does have significant bladder outlet obstruction with preserved bladder contractility, we can discuss more aggressive medical regimens or consideration for TURP, but we will discuss this w ith his daughter at present as I do not think the patient is adequately able to make these decisions himself at this time. SUMMARY OF RECOMMENDATIONS: 1. Discontinue Flores catheter. 2. Have nursing staff perform to clean intermittent catheterization every 4-6 hours. 3. Restraints can be discontinued per the primary team if there are no other concerns for patient sa fety. 4. Follow up with me in 1-2 weeks for assessment of voiding status and discussion of further workup.
[2017-09-26] MEDS ORDERED: Lorazepam 2 MG/ML VIAL SLOW IVP SCH (15:15)
--- NOTE | 2017-09-26 17:43 | PDOC.CTH ---
Cardiology Progress Note - Subjective No new issues. He is more conversant but still confused and needing restraints. - Objective Vital Signs Temp Pulse Resp BP BP Pulse Ox 09/26/17 09:15 92 95/57 L 09/26/17 08:00 97.8 F 98 18 95/57 L 95 Admit Weight 171 lb 1.612 oz Weight 160 lb 9.6 oz 09/25/17 09/26/17 09/27/17 06:59 06:59 06:59 Intake Total 1350 360 Output Total 2356 500 Balance -1006 -140 - Physical Examination General/Neuro: NAD Neck: no JVD present Lungs: CTA, unlabored respirations Heart: RRR Abdomen: NT/ND Extremities: + edema B (None) - Telemetry Telemetry Rhythm: NSR - Labs Result Diagrams: 09/26/17 05:51 09/23/17 05:44 Troponin/CKMB CK-MB (CK-2) 4.5 ng/mL (0-6.6) 09/20/17 19:19 Troponin I 0.011 ng/mL (< 0.028) 09/20/17 19:19 - Assessment/Plan 1. A flutter - s/p ablation Maintaining sinus. 2. Chronic Diastolic HF. 3. Alcoholic Encephalopathy 3. Hx of Fall PLAN: - Continue BB. - No anticoagulation per Dr Meyer, given other commorbidities and falls. Aspirin alone for stroke prophylaxis once able to tolerate PO.
[2017-09-26] MEDS: Melatonin 3 MG TAB PO SCH (21:01)
[2017-09-26] MEDS: diphenhydrAMINE 25 MG CAP PO PRN (21:02)
[2017-09-26] MEDS: Temazepam 15 MG CAP PO PRN (21:12)
--- NOTE | 2017-09-27 09:18 | PDOC.FM ---
- Subjective Subjective: Pt asleep this am and resting comfortably in bed. Per sitter, he was able to sleep most of the night. He has persistent confusion, but no further agitation. No aggression. He has been cleared for DC by specialists and approved at [facility]. We will plan for DC to home today and CM is on the case and assisting with DC planning. - Objective Vital Signs & Weight: Vital Signs (12 hours) Temp Pulse Resp BP Pulse Ox 09/27/17 04:42 97.7 F 95 18 151/90 H 94 L 09/27/17 00:00 98.2 F 96 20 127/80 97 Weight Admit Weight 77.61 kg Weight 72.847 kg I&O: 09/26/17 09/27/17 09/28/17 06:59 06:59 06:59 Intake Total 1350 1330 Output Total 2356 1870 Balance -1000 -839 Result Diagrams: 09/26/17 05:51 09/23/17 05:44 <Angel Leone - Last Filed: 09/27/17 09:15> - Objective Vital Signs & Weight: Vital Signs (12 hours) Temp Pulse Resp BP BP Pulse Ox 09/27/17 13:59 85 16 09/27/17 11:02 84 15 98 09/27/17 11:00 98.2 F 85 16 105/71 100 09/27/17 10:09 96 110/72 09/27/17 08:00 98 F 96 18 94 L 09/27/17 07:00 98.0 F 96 18 110/72 94 L 09/27/17 04:42 97.7 F 95 18 151/90 H 94 L Weight Admit Weight 77.61 kg Weight 72.847 kg I&O: 09/26/17 09/27/17 09/28/17 06:59 06:59 06:59 Intake Total 1350 1330 Output Total 2356 1870 Balance -1001 -509 Result Diagrams: 09/26/17 05:51 09/23/17 05:44 <Laura Yoo - Last Filed: 09/27/17 15:48> Dx/Plan (1) HCAP (healthcare-associated pneumonia) Code(s): J18.9 - PNEUMONIA, UNSPECIFIED ORGANISM Status: Acute (2) Dementia Code(s): F03.90 - UNSPECIFIED DEMENTIA WITHOUT BEHAVIORAL DISTURBANCE Status: Chronic (3) Atrial flutter Code(s): I48.92 - UNSPECIFIED ATRIAL FLUTTER Status: Resolved (4) Heart failure Code(s): I50.9 - HEART FAILURE, UNSPECIFIED Status: Acute (5) Peripheral neuropathy Code(s): G62.9 - POLYNEUROPATHY, UNSPECIFIED Status: Acute (6) HTN (hypertension) Code(s): I10 - ESSENTIAL (PRIMARY) HYPERTENSION Status: Acute - Plan Plan: Urinary Retention - continue in and out cath - per urology, ok to continue i/o cath q4-6 at SNF - urology consulted, appreciate recs - stable, monitor Is'Os - DC today Paroxysmal A Flutter - S/p ablation - VSS - Ok for DC to SNF - arranging dc today Dementia - frequent re-orientation - no soft restraints last 24 hours - chronic, reassess MS once pt is awake Possible Peripheral Neuropathy- addressed - neuro consulted, appreciate recs - labs pending that can be f/u with on OP basis - Neuro rec, Ankle-foot orthotics, outpt f/u and nerve conduction studies Suspected Aspiration Pneumonia- addressed - No evidence on CT - will continue abx - can be continued in SNF HFpEF, stable - Echo 08/22 shows EF 60-65% - RLE swelling - doppler negative for DVT - no evidence of swelling on exam today difficult social situation - Per previous handoff and note "daughter Michelle from [place] has many demands, nursing staff reports demeaning exchanges including "you guys cannot get anything done down there," "everything is slower in [place]" - CM reports daughter Laura is POA" - CM involved and planning for DC today to fdc facility HTN - added HCTZ/lisinopril per Cardiology - BP, 151/90 - monitor PPx - lovenox Barriers to d/c -has been approved at 2 snf, per urology recs can continue i/o cath q4-6 hrs and attempt to urinate between catheter. - Cleared from cardiology, urology and neurology - OP f/u on pending neuro labs and OP nerve conduction study - If mentation improves, ALONZO, per urology for presumed BPH - Spoke with CM today and she will attempt to plan for DC and talk to medical POA for placement into one of the two SNF he has been accepted to <Angel Leone - Last Filed: 09/27/17 09:15> Attending Addendum - Attending Addendum Date/Time: 09/27/17 2971 I personally evaluated the patient and discussed the management with Dr. Leone and Dr. Hemphill I agree with the History, Examination, Assessment and Plan documented above with any addition or exceptions noted below. 72 yo male with multiple medical conditions admitted for atrial arrthymia s/p ablation A. fib/flutter Cards following. Currrently no changes in plan. Notes indicate stable for discharge. On ASA for ppx. Fall risk. Aspiration PNA currently being treated with oral medications. Swallow has been evaluated. Patient cleared. Continue until treatment complete. Afebrile. Urinary retention now with in and out cath. Urology following. On flomax. Dementia is stable. Neurology is following. Unable to perform ADLs. Has been approved for SNF. At baseline. Atelectasis. Poor inspiratory effort. Unable to use IS at bedside. Will have patient up with assistance. Monitor. Add DuoNeb. Clear on exam. Consider repeat CXR. Pulm as needed. Continue current care. Working towards d/c when able. ABrayMD <Laura Yoo - Last Filed: 09/27/17 15:48>
--- NOTE | 2017-09-27 09:22 | PDOC.CTH ---
<Vickie Triplett - Last Filed: 09/27/17 09:25> Cardiology Progress Note - Subjective The pt seen and examined. No overnight events. No cardiac complaints. Still confused. - Objective Vital Signs Temp Pulse Resp BP Pulse Ox 09/27/17 04:42 97.7 F 95 18 151/90 H 94 L 09/27/17 00:00 98.2 F 96 20 127/80 97 Admit Weight 171 lb 1.612 oz Weight 160 lb 9.6 oz 09/26/17 09/27/17 09/28/17 06:59 06:59 06:59 Intake Total 1350 1330 Output Total 2356 1870 Balance -1006 -540 - Physical Examination Neck: no JVD present Lungs: CTA Heart: RRR Abdomen: soft Extremities: other: (No edema) - Labs Result Diagrams: 09/26/17 05:51 09/23/17 05:44 Troponin/CKMB CK-MB (CK-2) 4.5 ng/mL (0-6.6) 09/20/17 19:19 Troponin I 0.011 ng/mL (< 0.028) 09/20/17 19:19 - Assessment/Plan 1. A flutter - s/p ablation on 09/23/17; Maintaining RR. No OAC per Dr Meyer due to hx of Falls and commorbidities. ASA for now for stroke prophylaxis. 2. Chronic Diastolic HF - stable; on SHARDA, BBlocker, and HCTZ; cont. 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 Hx of Fall MAR reviewed Review of Systems - Review of Systems Constitutional: reports: see HPI EENTM: reports: see HPI Respiratory: reports: see HPI Cardiac (ROS): reports: see HPI ABD/GI: reports: see HPI : reports: see HPI <Sara Seaman - Last Filed: 09/27/17 15:53> Cardiology Progress Note - Objective Vital Signs Temp Pulse Resp BP BP Pulse Ox 09/27/17 13:59 85 16 09/27/17 11:02 84 15 98 09/27/17 11:00 98.2 F 85 16 105/71 100 09/27/17 10:09 96 110/72 09/27/17 08:00 98 F 96 18 94 L 09/27/17 07:00 98.0 F 96 18 110/72 94 L 09/27/17 04:42 97.7 F 95 18 151/90 H 94 L Admit Weight 171 lb 1.612 oz Weight 160 lb 9.6 oz 09/26/17 09/27/17 09/28/17 06:59 06:59 06:59 Intake Total 1350 1330 Output Total 2356 1870 Balance -1006 -540 - Labs Result Diagrams: 09/26/17 05:51 09/23/17 05:44 Troponin/CKMB CK-MB (CK-2) 4.5 ng/mL (0-6.6) 09/20/17 19:19 Troponin I 0.011 ng/mL (< 0.028) 09/20/17 19:19 - Assessment/Plan Pt. seen and eval. by me. i agree with the A/P by the ROLL FORMING MACHINE OPERATOR. He was able to walk today with the walker. His foot drop is still present. He is more vocal but still confused. From a cardiac standpoint he could be d/c'd. He will need senior care or NH placement. I will sign off. If there are further cardiac problems, I will be happy to visit with him again.
[2017-09-27] MEDS: Senokot S 8.6-50 MG TAB PO SCH ×2 (10:09→19:48)
[2017-09-27] MEDS: Amoxicillin/Potassium Clav 875 MG TAB PO SCH ×2 (10:09→19:48)
[2017-09-27] MEDS: Magnesium Oxide 400 MG TAB PO SCH (10:09)
[2017-09-27] MEDS: Multivitamin W/ Minerals 1 TAB PO SCH (10:09)
[2017-09-27] MEDS: Tamsulosin HCl 0.4 MG CAP PO SCH (10:09)
[2017-09-27] MEDS: Lisinopril/Hydrochlorothiazide 10 mg/12.5 mg Tablet PO SCH (10:09)
[2017-09-27] MEDS: Folic Acid 1 MG TAB PO SCH (10:10)
[2017-09-27 11:03] LABS: ANA Symphony (Qualitative) Negative (Negative); dsDNA IgG Antibody 3.9 IU/mL (<10 Negative)
[2017-09-27 15:21] LABS: Albumin 2.8 g/dL (2.9-4.4); Alpha 1 0.4 g/dL (0.0-0.4); Alpha 2 0.7 g/dL (0.4-1.0); Beta 0.9 g/dL (0.7-1.3); Gamma 0.9 g/dL (0.4-1.8); Globulin, Total 2.8 g/dL (2.2-3.9); M-Spike Not Observed g/dL (Not Observed)
--- NOTE | 2017-09-27 18:21 | EKG ---
Test Reason : ROUTINE Blood Pressure : / mmHG Vent. Rate : 088 BPM Atrial Rate : 088 BPM P-R Int : 168 ms QRS Dur : 080 ms QT Int : 378 ms P-R-T Axes : 050 035 056 degrees QTc Int : 457 ms Normal sinus rhythm Possible Left atrial enlargement Anteroseptal infarct , age undetermined Abnormal ECG When compared with ECG of 24-SEP-2017 13:27, Anteroseptal infarct is now Present Confirmed by VIVIAN HERNÁNDEZ, SIsatu ([id number]) on 09/27/2017 6:20:49 PM Referred By: Confirmed By:DR. Mandy PARK MD
[2017-09-27] MEDS: Melatonin 3 MG TAB PO SCH (19:48)
[2017-09-27] MEDS: Temazepam 15 MG CAP PO PRN (19:48)
[2017-09-27] MEDS: diphenhydrAMINE 25 MG CAP PO PRN (19:48)
[2017-09-28 01:09] LABS: Folate,Hemolysate 439.1 ng/mL (Not Estab.); Hematocrit 30.3 % (37.5-51.0); RBC Folate Test Component 1449 ng/mL (>498)
--- NOTE | 2017-09-28 08:53 | PDOC.FM ---
Addendum entered and electronically signed by Angel Leone DO 09/28/17 13: 32: Addendum to previous note: Pt FOBT resulted positive that was previously ordered on 09/22; prior to resulting the pts Hgb and hematocrit has been stable and actually increased the day after the order was placed. His h/h is stable and he is showing no signs of acute blood loss and his vitals remain stable. This can be worked up on an outpatient basis. He remains stable for discharge. Original Note: - Subjective Subjective: Pt had no acute events overnight. Remains confused at night and difficult to re- orient. This morning he is able to tell me his full name and date of . He is not oriented to place or time. No other complaints. He does follow commands and remains stable. - Objective Vital Signs & Weight: Vital Signs (12 hours) Temp Pulse Resp BP Pulse Ox 09/28/17 06:36 87 14 91 L 09/28/17 04:00 98.5 F 97 18 127/78 91 L 09/28/17 00:00 98.1 F 89 20 103/61 93 L Weight Admit Weight 77.61 kg Weight 72.847 kg I&O: 09/27/17 09/28/17 09/29/17 06:59 06:59 06:59 Intake Total 1330 490 Output Total 1870 737 Balance -540 -247 Result Diagrams: 09/26/17 05:51 09/23/17 05:44 <Angel Leone - Last Filed: 09/28/17 08:51> - Objective Vital Signs & Weight: Vital Signs (12 hours) Temp Pulse Resp BP BP Pulse Ox 09/28/17 16:00 97.9 F 97 16 97/62 93 L 09/28/17 13:46 85 16 95 09/28/17 12:00 97.4 F L 89 16 101/69 09/28/17 11:00 98.0 F 86 16 91/61 93 L 09/28/17 09:38 94 12 94 L 09/28/17 09:23 95 146/86 H 09/28/17 08:00 97.6 F 94 12 146/86 H 94 L 09/28/17 06:36 87 14 91 L Weight Admit Weight 77.61 kg Weight 72.847 kg I&O: 09/27/17 09/28/17 09/29/17 06:59 06:59 06:59 Intake Total 1330 490 Output Total 1870 737 Balance -540 -247 Result Diagrams: 09/26/17 05:51 09/23/17 05:44 <Laura Yoo - Last Filed: 09/28/17 17:33> Phys Exam - Physical Examination Constitutional: NAD HEENT: PERRLA, sclera anicteric Neck: no nodes, no JVD Respiratory: no wheezing, no rales, no rhonchi, clear to auscultation bilateral Cardiovascular: RRR, no significant murmur, no rub Gastrointestinal: soft, non-tender, no distention, positive bowel sounds Musculoskeletal: no edema, pulses present Neurological: moves all 4 limbs b/l foot drop <Angel Leone - Last Filed: 09/28/17 08:51> Dx/Plan (1) HCAP (healthcare-associated pneumonia) Code(s): J18.9 - PNEUMONIA, UNSPECIFIED ORGANISM Status: Acute (2) Dementia Code(s): F03.90 - UNSPECIFIED DEMENTIA WITHOUT BEHAVIORAL DISTURBANCE Status: Chronic (3) Atrial flutter Code(s): I48.92 - UNSPECIFIED ATRIAL FLUTTER Status: Resolved (4) Heart failure Code(s): I50.9 - HEART FAILURE, UNSPECIFIED Status: Acute (5) Peripheral neuropathy Code(s): G62.9 - POLYNEUROPATHY, UNSPECIFIED Status: Acute (6) HTN (hypertension) Code(s): I10 - ESSENTIAL (PRIMARY) HYPERTENSION Status: Acute - Plan Plan: Urinary Retention - continue in and out cath - per urology, ok to continue i/o cath q4-6 at SNF - urology consulted, appreciate recs - stable, monitor Is'Os - Pt remains stable for dc, although urinary retention remains - continue flomax and i/o cath Paroxysmal A Flutter - S/p ablation - VSS -OK for DC to SNF or swing bed - working on DC and cardiology has signed off Dementia - frequent re-orientation - no soft restraints >24 hours - chronic -pt has lucid intervals during day -supportive care, stable for DC Possible Peripheral Neuropathy- addressed - neuro consulted, appreciate recs - labs negative and protein abnormalities 2/2 hypoalbuminemia - Neuro rec, Ankle-foot orthotics, outpt f/u and nerve conduction studies -B6 pending, can f/u OP - remains stable for DC, awaiting placement Suspected Aspiration Pneumonia- addressed - No evidence on CT, only showed subsegmental atelectasis - will continue abx - can be continued in SNF - will benefit most from ambulation and if able to follow commands use of incentive spirometer HFpEF, stable - Echo 08/22 shows EF 60-65% - stable, daily weights - ok for DC RLE swelling, resolved - doppler negative for DVT - no evidence of swelling on exam today difficult social situation - Per previous handoff and note "daughter Michelle nursing staff reports demeaning exchanges including "you guys cannot get anything done down there," "everything is slower in [place]" - CM involved and planning for DC soon as he has been accepted to multiple SNFs -CM worked diligently yesterday on DC planning and we will continue to do so today as he remains stable for DC -appreciate CM efforts HTN - added HCTZ/lisinopril per Cardiology - BP, 151/90 - monitor PPx - aspirin only 08/06 increased fall risk and potential for bleed Barriers to d/c -has been approved at 2 snf, per urology recs can continue i/o cath q4-6 hrs and attempt to urinate between catheter. - Cleared from cardiology, urology and neurology, all of which have signed off - Neuro labs negative, OP nerve conduction study - If mentation improves, ALONZO, per urology for presumed BPH - Spoke with CM today and she will attempt to plan for DC and talk to medical POA for placement into one of the two SNF he has been accepted to -CM actively involved in case, hopefully placement today and DC to facility <Angel Leone - Last Filed: 09/28/17 08:51> Attending Addendum - Attending Addendum Date/Time: 09/28/17 1730 I personally evaluated the patient and discussed the management with Dr. Lenoe and Dr. Hemphill I agree with the History, Examination, Assessment and Plan documented above with any addition or exceptions noted below. 72 yo male with multiple medical conditions admitted for atrial arrthymia s/p ablation Doing well. Oriented to person. Communicating. Eating breakfast. Off supplemental O2. Has been at baseline and unchanged O2 sat since admission. Still has a few days left with antibiotics. Cards has signed off case. Currently awaiting skilled placement. Ambulated 88 feet yesterday. Continue current care. Working towards d/c when able. Camryn <Laura Yoo - Last Filed: 09/28/17 17:33>
[2017-09-28] MEDS: Amoxicillin/Potassium Clav 875 MG TAB PO SCH ×2 (09:22→20:09)
[2017-09-28] MEDS: Magnesium Oxide 400 MG TAB PO SCH (09:23)
[2017-09-28] MEDS: Tamsulosin HCl 0.4 MG CAP PO SCH (09:23)
[2017-09-28] MEDS: Folic Acid 1 MG TAB PO SCH (09:23)
[2017-09-28] MEDS: Multivitamin W/ Minerals 1 TAB PO SCH (09:23)
[2017-09-28] MEDS: Senokot S 8.6-50 MG TAB PO SCH ×2 (09:23→20:08)
[2017-09-28] MEDS: Lisinopril/Hydrochlorothiazide 10 mg/12.5 mg Tablet PO SCH (09:23)
[2017-09-28 14:42] VITALS: BMI 22.4
[2017-09-28] MEDS: Temazepam 15 MG CAP PO PRN ×2 (20:08→23:42)
[2017-09-28] MEDS: Melatonin 3 MG TAB PO SCH (20:09)
[2017-09-28] MEDS: diphenhydrAMINE 25 MG CAP PO PRN (20:09)
--- NOTE | 2017-09-29 09:08 | PDOC.FM ---
- Subjective Subjective: Pts hr increased this morning and EKG was done and showed atrial flutter. Speaking with pt this am he denies any palpitations or chest pain. Denies SOB, abdominal pain. He is oriented to self and is able to tell me his family members names. He is not oriented to place or time. - Objective Vital Signs & Weight: Vital Signs (12 hours) Temp Pulse Resp BP Pulse Ox 09/29/17 08:00 98.4 F 134 H 16 96/66 93 L 09/29/17 07:16 98.9 F 142 H 16 96/66 93 L 09/29/17 04:00 98.4 F 106 H 18 96/66 93 L 09/29/17 03:04 96 09/29/17 00:00 98.1 F 83 18 93/62 91 L Weight Admit Weight 77.61 kg Weight 72.847 kg I&O: 09/28/17 09/29/17 09/30/17 06:59 06:59 06:59 Intake Total 490 Output Total 737 600 Balance -247 -600 Result Diagrams: 09/26/17 05:51 09/23/17 05:44 <Angel Leone - Last Filed: 09/29/17 09:10> - Objective Vital Signs & Weight: Vital Signs (12 hours) Temp Pulse Resp BP BP Pulse Ox 09/29/17 14:01 122 H 16 97 09/29/17 10:35 89 18 93 L 09/29/17 09:38 134 H 96/66 09/29/17 08:00 98.4 F 89 18 96/66 93 L 09/29/17 07:16 98.9 F 142 H 16 96/66 93 L 09/29/17 04:00 98.4 F 106 H 18 96/66 93 L 09/29/17 03:04 96 Weight Admit Weight 77.61 kg Weight 72.847 kg I&O: 09/28/17 09/29/17 09/30/17 06:59 06:59 06:59 Intake Total 490 Output Total 737 600 Balance -247 -600 Result Diagrams: 09/26/17 05:51 09/23/17 05:44 <Laura Yoo - Last Filed: 09/29/17 14:39> Phys Exam - Physical Examination Constitutional: NAD HEENT: PERRLA, moist MMs, sclera anicteric Neck: no nodes, no JVD Respiratory: no wheezing, no rales, no rhonchi, clear to auscultation bilateral Cardiovascular: no significant murmur, no rub tachycardic, regular rhythm Gastrointestinal: soft, non-tender, no distention, positive bowel sounds Musculoskeletal: no edema, pulses present Neurological: moves all 4 limbs Deviation from normal: A &O X1 Skin: cap refill <2 seconds <Angel Leone - Last Filed: 09/29/17 09:10> Dx/Plan (1) Atrial flutter Code(s): I48.92 - UNSPECIFIED ATRIAL FLUTTER Status: Resolved (2) HCAP (healthcare-associated pneumonia) Code(s): J18.9 - PNEUMONIA, UNSPECIFIED ORGANISM Status: Acute (3) Dementia Code(s): F03.90 - UNSPECIFIED DEMENTIA WITHOUT BEHAVIORAL DISTURBANCE Status: Chronic (4) Heart failure Code(s): I50.9 - HEART FAILURE, UNSPECIFIED Status: Acute (5) Peripheral neuropathy Code(s): G62.9 - POLYNEUROPATHY, UNSPECIFIED Status: Acute (6) HTN (hypertension) Code(s): I10 - ESSENTIAL (PRIMARY) HYPERTENSION Status: Acute - Plan Plan: Considering the recurrent a-flutter I have placed a tin into electrophysiology for their recommendations and I am currently awaiting call back. Paroxysmal A Flutter - S/p ablation - Pt went back into a flutter this morning and I have placed a tin to EP for recommendations -will await EP recs for final DC -Pt is entirely asymptomatic Urinary Retention - continue in and out cath - Pt remains stable for dc, although urinary retention remains - continue flomax and i/o cath Dementia - frequent re-orientation - chronic -pt has lucid intervals during day -supportive care, stable for DC, awaiting A flutter recs from EP Possible Peripheral Neuropathy- addressed -OP nerve conduction and AFOs -await EP recs for flutter, otherqwise neuropathy stable Suspected Aspiration Pneumonia- addressed - will continue abx - can be continued in SNF - will benefit most from ambulation and if able to follow commands use of incentive spirometer -will order IS, pt may be able to use during lucid intervals throughout the day HFpEF, stable - Echo 08/22 shows EF 60-65% - stable, daily weights -cardiology signed off - recurrent a-flutter, awaiting EP recs difficult social situation - -see previous notes -has been accepted into SNF, family has contested DC -in that time pt has reverted to a flutter, I have called EP and am awaiting recommendations HTN - stable - PPx - aspirin only Barriers to d/c -pt was dc'd two days ago; however, this AM pt reverted back into a-flutter -will await EP recs and follow accordingly -he is asymptomatic and denies cp, palpitations or SOB <Angel Leone - Last Filed: 09/29/17 09:10> Attending Addendum - Attending Addendum Date/Time: 09/29/17 6781 I personally evaluated the patient and discussed the management with Dr. Leone and Dr. Hemphill I agree with the History, Examination, Assessment and Plan documented above with any addition or exceptions noted below. 72 yo male with multiple medical conditions admitted for atrial arrthymia s/p ablation Noted to be in A flutter on EKG. Will transfer to tele. EP notified and will follow this morning. Patient denies any complications or complaints at this time. Not requiring supplemental O2 since he has been more active. Still on antibx for aspiration pneumonia Continue current care. EP to re-evaluate today. Camryn <Laura Yoo - Last Filed: 09/29/17 14:39>
[2017-09-29] MEDS: Senokot S 8.6-50 MG TAB PO SCH ×2 (09:37→20:27)
[2017-09-29] MEDS: Tamsulosin HCl 0.4 MG CAP PO SCH (09:37)
[2017-09-29] MEDS: Amoxicillin/Potassium Clav 875 MG TAB PO SCH ×2 (09:37→20:27)
[2017-09-29] MEDS: Multivitamin W/ Minerals 1 TAB PO SCH (09:37)
[2017-09-29] MEDS: Folic Acid 1 MG TAB PO SCH (09:38)
[2017-09-29] MEDS: Lisinopril/Hydrochlorothiazide 10 mg/12.5 mg Tablet PO SCH (09:38)
[2017-09-29] MEDS: Magnesium Oxide 400 MG TAB PO SCH (09:38)
--- NOTE | 2017-09-29 10:53 | PDOC.EVN ---
Event Note - Event Note Event Note: Spoke with EP regarding a-flutter. Recommended sotalol in attempt to rate control. Medication has been changed. Additionally, will transfer pt to telemetry and hold DC. EP will be by to see patient and we will follow recs. <Angel Leone - Last Filed: 09/29/17 10:51> Attending Addendum - Attending Addendum Date/Time: 09/29/17 1313 I personally evaluated the patient and discussed the management with Dr. Leone. EP cards to see later today. Transferring to tele. Patient reports "I feel great." Which is reassuring. No evidence of distress on exam. Rate controlled agent added. Monitor closely. Camryn <Laura Yoo - Last Filed: 09/29/17 13:14>
[2017-09-29 11:21] LABS: Vitamin B6-Pyridoxal Phosphate 15.4 ug/L (5.3-46.7)
--- NOTE | 2017-09-29 15:42 | PDOC.CTH ---
Cardiology Progress Note - Subjective EP progress note: Patient had EKG done today and was found to be in atypical atrial flutter with RVR and was transferred back to telemetry. He remains confused with a baseline of dementia. Unable to give a reliable ROS - Objective Vital Signs Temp Pulse Resp BP BP Pulse Ox 09/29/17 14:49 98.2 F 154 H 18 110/52 L 92 L 09/29/17 14:01 122 H 16 97 09/29/17 10:35 89 18 93 L 09/29/17 09:38 134 H 96/66 09/29/17 08:00 98.4 F 89 18 96/66 93 L 09/29/17 07:16 98.9 F 142 H 16 96/66 93 L 09/29/17 04:00 98.4 F 106 H 18 96/66 93 L Admit Weight 171 lb 1.612 oz Weight 160 lb 9.6 oz 09/28/17 09/29/17 09/30/17 06:59 06:59 06:59 Intake Total 490 Output Total 737 600 Balance -247 -600 - Physical Examination General/Neuro: other: (baseline dementia. Responds to name) Lungs: unlabored respirations Abdomen: NT/ND, soft - Telemetry Telemetry Rhythm: atrial flutter - Labs Result Diagrams: 09/26/17 05:51 09/23/17 05:44 Troponin/CKMB CK-MB (CK-2) 4.5 ng/mL (0-6.6) 09/20/17 19:19 Troponin I 0.011 ng/mL (< 0.028) 09/20/17 19:19 - Assessment/Plan 1. Atypical atrial flutter with RVR. Begin sotalol 80m BID for antiarrhythmic therapy. 2. History of typical atrial flutter, s/p CTI ablation last week. 3. CHADS-VASC of 1 (age 72). Aspirin for CVA prophylaxis. Mr Ramirez was found to have multiple left atrial circuits during ablation/EPS last week. He is a poor PVAI candidate and will require medical management for his atypical flutter and atrial fibrillation.
[2017-09-29] MEDS ORDERED: Haloperidol Lactate 5 MG/ML VIAL IM ONE (17:53)
[2017-09-29] MEDS: Sotalol HCl 80 MG TAB PO SCH (20:26)
[2017-09-29] MEDS: Melatonin 3 MG TAB PO SCH (20:27)
[2017-09-30] MEDS: Sotalol HCl 80 MG TAB PO SCH ×2 (10:40→21:00)
[2017-09-30] MEDS: Magnesium Oxide 400 MG TAB PO SCH (10:40)
[2017-09-30] MEDS: Amoxicillin/Potassium Clav 875 MG TAB PO SCH ×2 (10:41→20:56)
[2017-09-30] MEDS: Lisinopril/Hydrochlorothiazide 10 mg/12.5 mg Tablet PO SCH (10:41)
[2017-09-30] MEDS: Tamsulosin HCl 0.4 MG CAP PO SCH (10:42)
[2017-09-30] MEDS: Multivitamin W/ Minerals 1 TAB PO SCH (10:42)
[2017-09-30] MEDS: Senokot S 8.6-50 MG TAB PO SCH ×2 (10:42→20:58)
[2017-09-30] MEDS: Folic Acid 1 MG TAB PO SCH (10:43)
--- NOTE | 2017-09-30 12:03 | PDOC.FM ---
- Subjective Subjective: No acute events overnight. Shortly after pt arrived in a-flutter to the telemetry unit he was given first dose of sotalol and converted back into NSR which he has stayed in since. He denies cp, sob. He did become agitated and difficult to redirect last night. - Objective Vital Signs & Weight: Vital Signs (12 hours) Temp Pulse Resp BP Pulse Ox 09/30/17 11:17 80 16 95 09/30/17 10:49 83 95/65 09/30/17 09:05 96.3 F L 82 16 107/66 91 L 09/30/17 08:00 96.3 F L 80 16 09/30/17 04:53 98.6 F 84 20 127/72 100 Weight Admit Weight 77.61 kg Weight 72.802 kg I&O: 09/29/17 09/30/17 10/01/17 06:59 06:59 06:59 Intake Total 310 Output Total 600 701 Balance -600 -391 Result Diagrams: 09/26/17 05:51 09/23/17 05:44 <Angel Leone - Last Filed: 09/30/17 12:01> - Objective Vital Signs & Weight: Vital Signs (12 hours) Temp Pulse Pulse Pulse Resp BP BP 10/01/17 16:00 97.7 F 10/01/17 12:00 97.6 F 80 10/01/17 10:18 72 73 104/58 L 103/55 L 10/01/17 08:12 75 10/01/17 08:10 75 10/01/17 08:00 96.4 F L 75 18 BP Pulse Ox 10/01/17 16:00 10/01/17 12:00 103/62 94 L 10/01/17 10:18 10/01/17 08:12 10/01/17 08:10 10/01/17 08:00 90/57 L 93 L Weight Admit Weight 77.61 kg Weight 72.802 kg I&O: 09/30/17 10/01/17 10/02/17 06:59 06:59 06:59 Intake Total 310 60 Output Total 701 1290 770 Balance -391 -1230 -770 Result Diagrams: 09/26/17 05:51 09/23/17 05:44 <Laura Yoo - Last Filed: 10/01/17 17:22> Phys Exam - Physical Examination Constitutional: NAD HEENT: PERRLA, sclera anicteric Neck: no nodes, no JVD Respiratory: no wheezing, no rales, no rhonchi, clear to auscultation bilateral Cardiovascular: RRR, no significant murmur, no rub Gastrointestinal: soft, non-tender, no distention, positive bowel sounds Musculoskeletal: no edema, pulses present Neurological: moves all 4 limbs b/l foot drop, unchanged from prior Deviation from normal: oriented to self only. able to identify and family members <Angel Leone - Last Filed: 09/30/17 12:01> Dx/Plan (1) Atrial flutter Code(s): I48.92 - UNSPECIFIED ATRIAL FLUTTER Status: Resolved (2) HCAP (healthcare-associated pneumonia) Code(s): J18.9 - PNEUMONIA, UNSPECIFIED ORGANISM Status: Acute (3) Dementia Code(s): F03.90 - UNSPECIFIED DEMENTIA WITHOUT BEHAVIORAL DISTURBANCE Status: Chronic (4) Heart failure Code(s): I50.9 - HEART FAILURE, UNSPECIFIED Status: Acute (5) Peripheral neuropathy Code(s): G62.9 - POLYNEUROPATHY, UNSPECIFIED Status: Acute (6) HTN (hypertension) Code(s): I10 - ESSENTIAL (PRIMARY) HYPERTENSION Status: Acute - Plan Plan: Paroxysmal A Flutter - S/p ablation - after tootie into a-flutter yesterday he was transferred to telemetry and re- evaluated by EP who recommended medical management with sotalol. He re-verted back petar NSR and has remained in SR since with HR in the 80s. Per EP he is a poor candidate for PVAI. We will continue medical management with sotalol and plan for DC to home today. -Continue cva ppx with aspirin only as pt is high fall risk and at increased risk of bleed on further anti-coagulation Urinary Retention - continue in and out cath and bladder scans - plan for DC today Dementia - pt was difficult to reorient per night team and nursing, although he did have a room change yesterday and this could have acutely worsened sun-downing type symptoms -continue supportive care with frequent re-orientation and good lighting throughout day and night light throughout night. -Pt stable for DC Possible Peripheral Neuropathy- addressed -OP nerve conduction and AFOs -stable, will need further OP workup -B6 normal Suspected Aspiration Pneumonia- addressed - will continue abx for today and pt will complete regimen tonight. -DC abx tonight -will switch to PRN nebs, monitor vitals -exam back, lungs are clear to auscultation. Will benefit from increased ambulation/rehab and use of incetive spirometer if he is able to understand directions given his current mentation HFpEF, stable - Echo 08/22 shows EF 60-65% - stable, daily weights -ok for DC HTN - stable, monitor -BP 95 sys but pt asymptomatic and rate is controlled on current dose of sotalol -stable for DC PPx - aspirin only, see #1 Barriers to d/c -after episode of a-flutter pt reverted to NSR with rate in the 80s where he has been since. EP recommends med management and we will continue sotalol upon DC as his rate has been controlled on that medication. -he is stable for DC and we will DC to snf today -cm involved in addition to palliative care for help with DC planning -family contested prior DC and has expressed they will do so again -he is stable for DC to SNF or swing and can have close OP f/u with the many specialists that have seen him throughout his stay. <Angel Leone - Last Filed: 09/30/17 12:01> Attending Addendum - Attending Addendum Date/Time: 09/30/17 1720 I personally evaluated the patient and discussed the management with Dr. Leone and Dr. Hemphill I agree with the History, Examination, Assessment and Plan documented above with any addition or exceptions noted below. 72 yo male with multiple medical conditions admitted for atrial arrthymia s/p ablation Reports he feels well this morning. No complaints. HR has been controlled on sotolol. Has remained off supplemental O2. Last day of oral antibiotics. Stable for d/c. ABrayMD <Laura Yoo - Last Filed: 10/01/17 17:22>
[2017-09-30] MEDS: Temazepam 15 MG CAP PO PRN (20:56)
[2017-09-30] MEDS: Melatonin 3 MG TAB PO SCH (20:56)
[2017-10-01] MEDS: Multivitamin W/ Minerals 1 TAB PO SCH (08:10)
[2017-10-01] MEDS: Magnesium Oxide 400 MG TAB PO SCH (08:10)
[2017-10-01] MEDS: Lisinopril/Hydrochlorothiazide 10 mg/12.5 mg Tablet PO SCH (08:10)
[2017-10-01] MEDS: Tamsulosin HCl 0.4 MG CAP PO SCH (08:11)
[2017-10-01] MEDS: Senokot S 8.6-50 MG TAB PO SCH ×2 (08:11→20:44)
[2017-10-01] MEDS: Folic Acid 1 MG TAB PO SCH (08:11)
[2017-10-01] MEDS: Sotalol HCl 80 MG TAB PO SCH ×2 (08:12→20:42)
--- NOTE | 2017-10-01 09:20 | PDOC.FM ---
- Subjective Subjective: No acute events overnight. Mr. Ramirez is sitting up in bed and states he is "doing good." He denies SOB, abd pain and chest pain. He is still only oriented to self. He is unaware of location and states "Gulshan Cintron" is president when asked. - Objective Vital Signs & Weight: Vital Signs (12 hours) Temp Pulse Resp BP Pulse Ox 10/01/17 08:12 75 10/01/17 08:10 75 10/01/17 08:00 96.4 F L 75 18 90/57 L 93 L 10/01/17 04:00 97.6 F 73 18 93/52 L 92 L Weight Admit Weight 77.61 kg Weight 72.802 kg I&O: 09/30/17 10/01/17 10/02/17 06:59 06:59 06:59 Intake Total 310 60 Output Total 701 6840 Balance -508 -2261 Result Diagrams: 09/26/17 05:51 09/23/17 05:44 <Angel Leone - Last Filed: 10/01/17 09:19> - Objective Vital Signs & Weight: Vital Signs (12 hours) Temp Pulse Pulse Pulse Resp BP BP 10/01/17 16:00 97.7 F 10/01/17 12:00 97.6 F 80 10/01/17 10:18 72 73 104/58 L 103/55 L 10/01/17 08:12 75 10/01/17 08:10 75 10/01/17 08:00 96.4 F L 75 18 BP Pulse Ox 10/01/17 16:00 10/01/17 12:00 103/62 94 L 10/01/17 10:18 10/01/17 08:12 10/01/17 08:10 10/01/17 08:00 90/57 L 93 L Weight Admit Weight 77.61 kg Weight 72.802 kg I&O: 09/30/17 10/01/17 10/02/17 06:59 06:59 06:59 Intake Total 310 60 Output Total 708 3875 770 Balance -759 -3965 -770 Result Diagrams: 09/26/17 05:51 09/23/17 05:44 <Laura Yoo - Last Filed: 10/01/17 17:24> Phys Exam - Physical Examination Constitutional: NAD HEENT: PERRLA, sclera anicteric Neck: no nodes, no JVD Respiratory: no wheezing, no rales, no rhonchi, clear to auscultation bilateral Cardiovascular: RRR, no significant murmur, no rub Gastrointestinal: soft, non-tender, no distention, positive bowel sounds Musculoskeletal: no edema, pulses present Neurological: moves all 4 limbs b/l foot drop left worse than right Deviation from normal: A&O to self Skin: no rash <Angel Leone - Last Filed: 10/01/17 09:19> Dx/Plan (1) Atrial flutter Code(s): I48.92 - UNSPECIFIED ATRIAL FLUTTER Status: Resolved QualifierTitle: Atrial flutter type: atypical Qualified Code(s): I48.4 - Atypical atrial flutter (2) HCAP (healthcare-associated pneumonia) Code(s): J18.9 - PNEUMONIA, UNSPECIFIED ORGANISM Status: Resolved (3) Dementia Code(s): F03.90 - UNSPECIFIED DEMENTIA WITHOUT BEHAVIORAL DISTURBANCE Status: Chronic (4) Heart failure Code(s): I50.9 - HEART FAILURE, UNSPECIFIED Status: Chronic (5) Peripheral neuropathy Code(s): G62.9 - POLYNEUROPATHY, UNSPECIFIED Status: Chronic (6) HTN (hypertension) Code(s): I10 - ESSENTIAL (PRIMARY) HYPERTENSION Status: Chronic - Plan Plan: Paroxysmal A Flutter - pt has done extremely well on sotalol and has maintained sinus -he remains stable for DC and has scheduled OP f/u appts with various specialists -DC'd yesterday, family is contesting DC -Scheduled meeting with palliative team, CM later today -Has been approved for SNF and remains stable for DC -Aspirin only for PPX as pt is high fall/bleed risk Urinary Retention - continue in and out cath and bladder scans, still has urinary retention will need I/O cath at SNF - pt DC'd yesterday, gfamily is contesting DC Dementia - pt more alert this morning but still remains only oriented to self, may benefit from addition of ACHi on an OP basis -remains stable for SNF -DC'd yesterday, family contesting DC Possible Peripheral Neuropathy- addressed -stable, AFOs -OP appt scheduled with neurology -OK for DC to home Suspected Aspiration Pneumonia- addressed -ABX completed yesterday -pt afebrile and saturations remain 92-94 RA, lungs clear on exam -consider IS if pt will follow commands for use HFpEF, stable - Echo 08/22 shows EF 60-65% - stable, daily weights -DC'd yesterday, pt family contesting DC HTN -BP 95 sys but pt asymptomatic and rate is controlled on current dose of sotalol -consider OP titration of meds with addition of sotalol, otherwise stable -DC'd yesterday, family contesting DC, meeting scheduled for today PPx - aspirin only, see #1 <Angel Leone - Last Filed: 10/01/17 09:19> Attending Addendum - Attending Addendum Date/Time: 10/01/17 1722 I personally evaluated the patient and discussed the management with Dr. Leone and Dr. Hemphill I agree with the History, Examination, Assessment and Plan documented above with any addition or exceptions noted below. 72 yo male with multiple medical conditions admitted for atrial arrthymia s/p ablation Again doing well this morning. No complaints. Will have family conferance call this afternoon. Has been accepted at [facility]. Ok to be d/c. Will likely be able to go on Wednesday. Anna MarieMD <Laura Yoo - Last Filed: 10/01/17 17:24>
--- NOTE | 2017-10-01 14:21 | PRG ---
DATE OF SERVICE: 09/21/2017 REFERRING PHYSICIAN: Dr. Angel Leone SUBJECTIVE: Mr. Ramirez is at his usual baseline confusion. No new events noted overnight. His sitt er is present in his room. OBJECTIVE DATA: VITAL SIGNS: Blood pressure is 90/57, heart rate 75, respiration is 18, temperature 96.4 degrees Fah renheit. GENERAL: Reveals an alert, oriented man in no apparent distress. NECK: Supple. Jugular veins not distended. CHEST: Coarse without crackles. CARDIOVASCULAR: Heart sounds are regular to rate and rhythm. No murmur or gallop. ABDOMEN: Benign. Bowel sounds positive. EXTREMITIES: Lower extremities without edema, clubbing or cyanosis. DATABASE: EKG is reviewed and reveals QTC of 467 millisecond range. No significant change from base line is noted. Telemetry strips reviewed with continued sinus rhythm. ASSESSMENT AND PLAN: Mr. Ramirez is a 72-year-old man with prior history of atrial arrhythmias. He h ad atrial flutter he underwent cavotricuspid isthmus ablation in the early part of September. He was not ed to have different atrial flutter circuits also operational, but eventually sinus rhythm ensued. Myla medina was subsequently discharged to medical floor, but his atrial flutter recurred. At this point, it w as not typical atrial flutter. He was started on sotalol and this seems to have suppressed the arrhy thmia as well. He remains stable and his rhythm also unchanged. No proarrhythmia or QT prolongation is seen. Blood pressure is borderline. At this point I would advise discontinuation of lisinopril, in favor of continued sotalol. Hence, his CHADS-VASc score is relatively low in the view of his rel ative instability due to his alcoholic liver and encephalopathy we prefer just aspirin for anticoagul ation for now. We will have to see him back as an outpatient if felt necessary.
[2017-10-01] MEDS: Melatonin 3 MG TAB PO SCH (20:44)
--- NOTE | 2017-10-02 06:11 | PDOC.FM ---
- Objective Vital Signs & Weight: Vital Signs (12 hours) Temp Pulse Resp BP BP BP Pulse Ox 10/02/17 04:05 98.2 F 69 16 94/50 L 99 10/01/17 20:42 75 111/61 10/01/17 19:45 98.2 F 75 20 111/61 98 Weight Admit Weight 77.61 kg Weight 71.486 kg I&O: 09/30/17 10/01/17 10/02/17 06:59 06:59 06:59 Intake Total 310 60 Output Total 701 1290 1245 Balance -454 -2672 -9603 Result Diagrams: 09/26/17 05:51 09/23/17 05:44 Dx/Plan - Plan Plan: Plan: Paroxysmal A Flutter - pt has done extremely well on sotalol and has maintained sinus -he remains stable for DC and has scheduled OP f/u appts with various specialists -DC'd 09/30/2016 (family contesting DC) -Scheduled meeting with palliative team, -Has been approved for SNF and remains stable for DC -Aspirin only for PPX as pt is high fall/bleed risk Urinary Retention - continue in and out cath and bladder scans, still has urinary retention will need I/O cath at SNF - pt DC'd yesterday, gfamily is contesting DC Dementia - pt more alert this morning but still remains only oriented to self, may benefit from addition of ACHi on an OP basis -remains stable for SNF -DC'd yesterday, family contesting DC Possible Peripheral Neuropathy- addressed -stable, AFOs -OP appt scheduled with neurology -WA for DC to home Suspected Aspiration Pneumonia- addressed -ABX completed yesterday -pt afebrile and saturations remain 92-94 RA, lungs clear on exam -consider IS if pt will follow commands for use HFpEF, stable - Echo 08/22 shows EF 60-65% - stable, daily weights -DC'd yesterday, pt family contesting DC HTN -BP 95 sys but pt asymptomatic and rate is controlled on current dose of sotalol -consider OP titration of meds with addition of sotalol, otherwise stable -DC'd yesterday, family contesting DC, meeting scheduled for today PPx - aspirin only, see #1
[2017-10-02] MEDS: Sotalol HCl 80 MG TAB PO SCH (09:34)
[2017-10-02] MEDS: Senokot S 8.6-50 MG TAB PO SCH (09:35)
[2017-10-02] MEDS: Multivitamin W/ Minerals 1 TAB PO SCH (09:35)
[2017-10-02] MEDS: Magnesium Oxide 400 MG TAB PO SCH (09:35)
[2017-10-02] MEDS: Tamsulosin HCl 0.4 MG CAP PO SCH (09:35)
[2017-10-02] MEDS: Folic Acid 1 MG TAB PO SCH (09:35)
[2017-10-02 09:36] VITALS: BP 97/56
[2017-10-02 21:25] VITALS: TEMP 97.5
--- NOTE | 2017-10-11 14:20 | DIS-2 ---
DATE OF ADMISSION: 09/20/2017 DATE OF DISCHARGE: 10/02/2017 LOCATION: [facility] in [place], [place]. RESIDENT PHYSICIAN: Dr. Angel Leone. ADMITTING ATTENDING: Dr. Hector Albert. DISCHARGE ATTENDING: Dr. Kamran Treviño. CO-SIGNER: Dr. Kamran Treviño. CONSULTATIONS: 1. Cardiology, Dr. Stacey Seaman. 2. Urology, Dr. Phillip Cain. 3. Neurology, Dr. Efrain Cervantes. 4. Electrophysiology, Dr. Michele Meyer. PROCEDURES: 1. Modified barium swallow done on 09/25/2017 showed evidence of penetration workup, swallows of thin liquid and evidence for aspiration without cough, reflex and straw swallows of thin liquid. Premature spillage was noted with thin liquid consistencies. 2. Brain CT done on 09/22/2017 showed a cerebral volume loss with no intracranial hemorrhage or displaced calvarial fracture. 3. Chest CTA done on 09/20/2017 showed moderately large regions of subsegmental atelectasis in the right lower lobe and right middle lobe. Nonspecific ground glass pulmonary densities in the right lower lobe and right upper lobe. No pulmonary thromboembolism. 4. Chest x-ray done on 09/20/2017 showed subsegmental atelectasis at the right lung base and another nonspecific region of fairly increased attenuation at the right lower lung zone. Ectasia and tortuosity of the thoracic aorta. 5. Right lower extremity venous Doppler on 09/21/2017 showed no DVT. Echocardiogram done on 09/20/2017 showed a normal left ventricular size. Ejection fraction 55%-60%, left atrium normal size, normal right atrial size. Mildly dilated IVC compatible with elevated right atrial pressure. Structurally normal mitral valve. No evidence of mitral regurgitation. Structurally normal aortic valve with no significant stenosis or regurgitation. Tricuspid valve is normal. No evidence of tricuspid regurgitation. 6. Cardiac catheterization procedure done on 09/24/2017 resulted in successful cavotricuspid isthmus ablation. Multiple different aberrant atrial circuits, transient fibrillation was also seen responding to amiodarone. Normal sinus rebecca and AV rebecca function and His-Purkinje function noted. PRIMARY DIAGNOSES: Atrial flutter with numerous aberrant electrical circuits, status post ablation. SECONDARY DIAGNOSES: 1. Elevated liver function tests. 2. Alcoholic hepatitis. 3. Dementia. 4. Peripheral neuropathy. 5. Bilateral foot drop. 6. Healthcare-associated pneumonia. DISCHARGE MEDICATIONS: 1. Famotidine 20 mg p.o. b.i.d. 2. Folvite 1 mg p.o. daily. 3. Magnesium oxide 400 mg p.o. daily. 4. Multivitamin 1 tab p.o. daily. 5. Potassium chloride 40 mEq p.o. b.i.d. with meals. 6. Sotalol 80 mg p.o. b.i.d. 7. Flomax 0.4 mg p.o. daily. 8. Thiamine 100 mg p.o. daily. 9. Aspirin 81 mg daily. DISCONTINUED MEDICATIONS: Metoprolol. HISTORY OF PRESENT ILLNESS AND HOSPITAL COURSE: The patient is a 72-year-old male who originally came in from his group home, noted to be tachycardic. Presentation in the ER, he was thought to have a suspected pneumonia in the right lung base, although at that time, the patient was afebrile and had no oxygen requirement. Prior to this most recent admission, he had an extended hospitalization for management of atrial flutter, alcohol withdrawal. On initial presentation, he was alert and oriented x1 and ultimately evaluated for evaluation of pneumonia. He was treated with vancomycin, Zosyn and Levaquin in the ED and then subsequently on admission, the patient was found to be in atrial flutter with RVR as noted from his most recent hospitalization. During a prior hospitalization, the patient's family refused ablation at that time and was noted that the patient is a poor candidate for long-term amiodarone therapy secondary to his alcoholic liver disease. Ultimately on this admission, the patient's family decided that they wanted to go forward with ablation, which was completed on 09/24/2017 after which point the patient converted to sinus rhythm and subsequently reverted back to atrial flutter and the patient was monitored subsequently going forward. Regarding the patient's dementia, the patient's daughter had noted to the primary team that the patient had a history of alcoholism for the past 30 years. There is also a strong family history of Alzheimer's. She stated for the last few years, they had noted some decreased cognition, mentation in the father and they did not know if this was due to alcoholism or Alzheimer's. Additionally, the patient suffered a possible peripheral neuropathy with bilateral foot drop, although he was subsequently evaluated by Neurology and it was deemed to be secondary to his alcoholism and ultimately recommended Ankle Foot Orthotics. He will be seen by Neurology in the outpatient setting for outpatient nerve conduction studies. Additionally, the patient suffered urinary retention during this hospitalization. A Flores was placed on 09/23/2017 secondary to urinary retention. Urology was consulted. The patient was consistently pulling on his Flores after which point the decision was made to switch the patient to in and out catheterization with bladder scans q.6 hours and recommended to see Urology in the outpatient setting. Regarding the suspected aspiration pneumonia, the patient was treated with vancomycin and Zosyn and cultures ultimately came back negative. His antibiotic regimen was deescalated to Augmentin b.i.d. and should be noted that the patient was afebrile throughout the stay. On the evaluation of CT given that there is no white count or fever, it is thought that the right lower lobe infiltrate was most likely subsegmental atelectasis secondary to poor inspiratory effort and decreased mobility. Although it should be noted that the patient did complete a full course of Augmentin prior to discharge. Importantly, the patient's family had some dissatisfaction with the patient's care and ultimately had many requests throughout the stay, all of which were addressed by various specialists and the primary team and it should be noted to the patient's family told case management that they were going to appeal discharge, no matter when or why it happened, whenever that discharge may be. Ultimately, they did appeal the discharge which was sent for review and the appeal was denied and he was ultimately discharged to a senior living facility. The last time when the patient was present at the hospital, the same occurrence happened. Administration was involved ultimately after the appeal discharge was lost and informed the family that they will be responsible for the hospital bill following the rejection of their appeal. Prior to discharge, both palliative care case management and the primary physician had a phone meeting with the daughter Obdulia, who is out of state and the other daughter, Laura, who is in town and discussed the status of the father and his readiness for discharge to a senior living facility. It was explained in detail to both of them that the patient is a poor candidate for long-term amiodarone use secondary to his underlying liver disease additionally he is in a very high fall risk and overall poor candidate for anticoagulation outside of aspirin. The daughter's main concern was persistent rumination on the fact that their father was in atrial flutter, although throughout that time even with the rapid ventricular rate, the patient remained asymptomatic and ultimately with the addition of sotalol, his rate and rhythm were controlled. The patient was ultimately discharged from the hospital approximately 3 times and the second time, the subsequent day, the patient went back into atrial flutter with a rate in the 140s at which point metoprolol was switched to sotalol b.i.d. and the patient was moved to telemetry. After transfer to telemetry and administration of the sotalol, the patient converted to normal sinus rhythm with a rate in the 70s-80s where he stayed consistently prior to discharge. DISPOSITION: The patient left the hospital in stable condition. DISCHARGE INSTRUCTIONS: 1. Location: halfway facility. 2. Diet: Heart healthy, thickened liquids, Ensure t.i.d. 3. Activity: ad mendel. 4. Follow up with pt's primary care physician in 3-7 days. 5. Follow up with Neurology, Dr. Efrain Cervantes in 7 days. 6. Follow up with Dr. Myke Seaman in [address] Myke Seaman is his Cardiology. 7. Follow up with Electrophysiology in 14 days following discharge. DEBBY
--- NOTE | 2017-10-13 22:41 | EKG ---
Test Reason : RHY CHG ? A FLUTTER Blood Pressure : / mmHG Vent. Rate : 121 BPM Atrial Rate : 286 BPM P-R Int : 000 ms QRS Dur : 076 ms QT Int : 310 ms P-R-T Axes : 000 047 014 degrees QTc Int : 440 ms Atrial flutter with variable A-V block Nonspecific ST and T wave abnormality Abnormal ECG When compared with ECG of 25-SEP-2017 00:55, Atrial flutter has replaced Sinus rhythm Criteria for Anteroseptal infarct are no longer Present T wave inversion now evident in Lateral leads Confirmed by Marii CARY ([id number]) on 10/13/2017 10:41:00 PM Referred By: MACI Confirmed By:Marii CARY
--- NOTE | 2017-10-13 22:52 | EKG ---
Test Reason : Blood Pressure : / mmHG Vent. Rate : 073 BPM Atrial Rate : 073 BPM P-R Int : 186 ms QRS Dur : 086 ms QT Int : 434 ms P-R-T Axes : 042 028 030 degrees QTc Int : 478 ms Normal sinus rhythm Possible Left atrial enlargement Borderline ECG When compared with ECG of 29-SEP-2017 07:14, (Unconfirmed) Sinus rhythm has replaced Atrial flutter Vent. rate has decreased BY [address] elevation now present in Anterior leads Nonspecific T wave abnormality no longer evident in Inferior leads Confirmed by Marii CARY ([id number]) on 10/13/2017 10:51:54 PM Referred By: INGA Confirmed By:Marii CARY
--- NOTE | 2017-10-13 22:57 | EKG ---
Test Reason : Blood Pressure : / mmHG Vent. Rate : 075 BPM Atrial Rate : 075 BPM P-R Int : 178 ms QRS Dur : 092 ms QT Int : 420 ms P-R-T Axes : 057 062 048 degrees QTc Int : 469 ms Normal sinus rhythm Prolonged QT Abnormal ECG When compared with ECG of 30-SEP-2017 12:17, (Unconfirmed) No significant change was found Confirmed by Marii CARY ([id number]) on 10/13/2017 10:57:21 PM Referred By: MATILDE Confirmed By:Marii CARY
--- NOTE | 2017-10-28 15:04 | EKG ---
Test Reason : A-FLUTTER Blood Pressure : / mmHG Vent. Rate : 104 BPM Atrial Rate : 312 BPM P-R Int : 000 ms QRS Dur : 080 ms QT Int : 368 ms P-R-T Axes : 270 053 118 degrees QTc Int : 483 ms Atrial flutter with variable A-V block with premature ventricular or aberrantly conducted complexes Septal infarct , age undetermined Abnormal ECG Confirmed by BILL PUENTES ([id number]), editor index ALYSSA HANNAH ([id number]) on 10/28/2017 3:03:46 PM Referred By: Confirmed By:BILL PUENTES
== END 2017-10-02 10:20 | DRG 273 ==
LOC: ERS 18:33 → 2NO 23:00 → T4-A 09-26 19:25 → 2NO 09-29 14:32
PROVIDERS: ADMIT Family Medicine; ATTEND Family Medicine
PROC: 02583ZZ Destruction of Conduction Mechanism, Percutaneous Approach (ICD-10-PCS; principal; 2017-09-24)
PROC: 02K83ZZ Map Conduction Mechanism, Percutaneous Approach (ICD-10-PCS; 2017-09-24)
DX: I48.92 Unspecified atrial flutter (principal); J69.0 Pneumonitis due to inhalation of food and vomit; F10.27 Alcohol dependence with alcohol-induced persisting dementia; I50.32 Chronic diastolic (congestive) heart failure; I11.0 Hypertensive heart disease with heart failure; G62.9 Polyneuropathy, unspecified; G31.2 Degeneration of nervous system due to alcohol; G30.9 Alzheimer's disease, unspecified; F02.80 Dementia in other diseases classified elsewhere, unspecified severity, without behavioral disturbance, psychotic disturbance, mood disturbance, and anxiety; N40.0 Benign prostatic hyperplasia without lower urinary tract symptoms; R33.9 Retention of urine, unspecified; M21.372 Foot drop, left foot; M21.371 Foot drop, right foot; D63.8 Anemia in other chronic diseases classified elsewhere; Z78.1 Physical restraint status; Z79.899 Other long term (current) drug therapy
CPT/HCPCS: 36415; 70450; 71045; 71275; 74230; 76942; 80048; 80053; 80202; 81001; 82274; 82553; 82607; 82747; 83605; 83880; 84165; 84207; 84425; 84484; 85025; 85027; 85610; 85652; 85730; 86038; 86225; 87040; 87086; 93005; 93010; 93306; 93613; 93623; 93653; 94640; 96365; 96368; A4216; C1730; C1769; G8978-GP-CJ; G8978-GP-CL; G8979-GP-CJ; G8987-GO-CM; G8988-GO-CJ; G8996-GN-CJ; G8997-GN-CI; J0282; J1265; J1630; J1644; J1650; J1956; J2001; J2060; J2543; J2704; J3370; J7050; J7620

== ENCOUNTER → 2018-02-03 | Outpatient (CLI) | payer MEDICARE | LOC: BICMRI 08:30 | PROVIDERS: ATTEND Psychiatry & Neurology Neurology | DX: G62.9 Polyneuropathy, unspecified (principal); M48.061 Spinal stenosis, lumbar region without neurogenic claudication; M99.83 Other biomechanical lesions of lumbar region | CPT/HCPCS: 72148 ==